=== PATIENT | female | born 1985 | race Hispanic/Latino ===

== ENCOUNTER 2017-11-12 09:54 | Emergency (ER) | payer SELFPAY ==
--- NOTE | 2017-11-12 12:07 | RAD REPORT ---
EXAM DESCRIPTION: RAD - Chest Pa And Lat (2 Views) - 11/12/2017 11:58 am CLINICAL HISTORY: Cough. COMPARISON: None. FINDINGS: The lungs are clear. The heart is upper limit of normal in size. No displaced fractures. IMPRESSION: No acute or concerning finding suspected.
--- NOTE | 2017-11-12 12:13 | ER ---
Nurse's Notes [facility] Name: Edgard Bearden Age: 32 yrs Sex: Female : 1985 Arrival Date: 11/12/2017 Time: 09:57 Bed 19 Private MD: Diagnosis: Acute bronchitis Presentation: 11/12 10:04 Presenting complaint: Patient states: "i have been coughing and i have a pain on my tw2 left upper abdomen, i feel like something was swollen", started swelling about midnight last night, been coughing since October 31 started with allergies, then chills, tried OTC meds. Transition of care: patient was not received from another setting of care. Onset of symptoms was November 12, 2017. Initial Sepsis Screen: Does the patient meet any 2 criteria? No. Patient's initial sepsis screen is negative. Does the patient have a suspected source of infection? No. Patient's initial sepsis screen is negative. Care prior to arrival: None. 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 - Social history:: Smoking status: Patient/guardian denies using tobacco. Screenin:23 Abuse screen: Denies threats or abuse. Denies injuries from another. Nutritional mg2 screening: No deficits noted. Tuberculosis screening: No symptoms or risk factors identified. Fall Risk None identified. Assessment: 10:23 General: Appears in no apparent distress. comfortable, obese, Behavior is calm, mg2 cooperative, appropriate for age. Pain:. Neuro: Level of Consciousness is awake, alert, obeys commands. Cardiovascular: Patient's skin is warm and dry. Respiratory: Breath sounds are clear. Derm: Skin is pink, warm \\T\\ dry. normal. Vital Signs: 10:05 BP 147 / 95; Pulse 79; Resp 18; Temp 97.4(TE); Pulse Ox 98% on R/A; Height 5 ft. 5 in. tw2 (165.10 cm) (R); Pain 7/10; 12:23 BP 142 / 89; Pulse 75; Resp 18; Pulse Ox 100% on R/A; mg2 ED Course: 09:57 Patient arrived in ED. rg4 10:05 Triage completed. tw2 10:06 Arm band placed on. tw2 10:07 Gamaliel Roberts MD is Attending Physician. 10:19 David Amaya, RN is Primary Nurse. hj 10:23 Patient has correct armband on for positive identification. Bed in low position. Call mg2 light in reach. Side rails up X 1. 10:23 No provider procedures requiring assistance completed. mg2 11:55 XRAY Chest Pa And Lat (2 Views) In Process Unspecified. EDMS 12:23 Patient did not have IV access during this emergency room visit. mg2 Administered Medications: No medications were administered Outcome: 12:12 Discharge ordered by . gs 12:22 Discharged to home ambulatory, with family. mg2 12:22 Condition: stable 12:22 Discharge instructions given to patient, family, Instructed on discharge instructions, follow up and referral plans. medication usage, Demonstrated understanding of instructions, follow-up care, Prescriptions given X 2. 12:35 Patient left the ED. Signatures: Dispatcher [employer] EDVA David Amaya, RN JORGE Anat Neri RN RN tw2 Viji Davis rg4 Gamaliel Roberts MD MD Amandeep Ramirez RN RN mg2
--- NOTE | 2017-11-12 12:13 | EDPHYS ---
Physician Documentation [facility] Name: Edgard Bearden Age: 32 yrs Sex: Female : 1985 Arrival Date: 11/12/2017 Time: 09:57 Bed 19 Private MD: ED Physician Gamaliel Roberts HPI: 11/12 11:45 This 32 yrs old Female presents to ER via Ambulatory with complaints of Cough. gs 11:47 The patient or guardian reports cough, that is intermittent, with productive sputum. gs Onset: The symptoms/episode began/occurred 5 day(s) ago. Severity of symptoms: At their worst the symptoms were moderate, in the emergency department the symptoms are unchanged. Modifying factors: the symptoms are aggravated by cold weather. Associated signs and symptoms: Pertinent positives: chest pain, with cough, Pertinent negatives: diarrhea, fever. The patient has experienced similar episodes in the past, a few times. 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 - Social history:: Smoking status: Patient/guardian denies using tobacco. ROS: 11:47 All other systems are negative. gs Exam: 11:47 Head/Face: Normocephalic, atraumatic. Eyes: Pupils equal round and reactive to light, gs extra-ocular motions intact. Lids and lashes normal. Conjunctiva and sclera are non-icteric and not injected. Cornea within normal limits. Periorbital areas with no swelling, redness, or edema. ENT: Nares patent. No nasal discharge, no septal abnormalities noted. Tympanic membranes are normal and external auditory canals are clear. Oropharynx with no redness, swelling, or masses, exudates, or evidence of obstruction, uvula midline. Mucous membranes moist. Neck: Trachea midline, no thyromegaly or masses palpated, and no cervical lymphadenopathy. Supple, full range of motion without nuchal rigidity, or vertebral point tenderness. No Meningismus. Chest/axilla: Normal chest wall appearance and motion. Nontender with no deformity. No lesions are appreciated. Cardiovascular: Regular rate and rhythm with a normal S1 and S2. No gallops, murmurs, or rubs. Normal PMI, no JVD. No pulse deficits. Respiratory: Lungs have equal breath sounds bilaterally, clear to auscultation and percussion. No rales, rhonchi or wheezes noted. No increased work of breathing, no retractions or nasal flaring. Abdomen/GI: Soft, non-tender, with normal bowel sounds. No distension or tympany. No guarding or rebound. No evidence of tenderness throughout. Back: No spinal tenderness. No costovertebral tenderness. Full range of motion. Skin: Warm, dry with normal turgor. Normal color with no rashes, no lesions, and no evidence of cellulitis. MS/ Extremity: Pulses equal, no cyanosis. Neurovascular intact. Full, normal range of motion. Neuro: Awake and alert, GCS 15, oriented to person, place, time, and situation. Cranial nerves II-XII grossly intact. Motor strength 5/5 in all extremities. Sensory grossly intact. Cerebellar exam normal. Normal gait. 11:47 Constitutional: The patient appears alert, awake. Vital Signs: 10:05 BP 147 / 95; Pulse 79; Resp 18; Temp 97.4(TE); Pulse Ox 98% on R/A; Height 5 ft. 5 in. tw2 (165.10 cm) (R); Pain 7/10; 12:23 BP 142 / 89; Pulse 75; Resp 18; Pulse Ox 100% on R/A; mg2 MDM: 10:24 Patient medically screened. 11:47 Differential Diagnosis: Bronchitis Viral Syndrome Pneumonia. Data reviewed: vital gs signs, nurses notes. Response to treatment: the patient's symptoms have mildly improved after treatment, and as a result, I will discharge patient. 11/12 10:24 Order name: XRAY Chest Pa And Lat (2 Views); Complete Time: 12:08 Administered Medications: No medications were administered Disposition: 11/12/17 12:12 Discharged to Home. Impression: Acute bronchitis. - Condition is Stable. - Discharge Instructions: Acute Bronchitis. - Prescriptions for Prednisone 20 mg Oral Tablet - take 1 tablet by ORAL route once daily for 5 days; 5 tablet. Albuterol Sulfate 90 mcg/actuation - inhale 1-2 puff by INHALATION route every 4-6 hours; 1 Inhaler. - Medication Reconciliation Form, Thank You Letter, Antibiotic Education, Prescription Opioid Use form. - Follow up: Private Physician; When: 2 - 3 days; Reason: Re-evaluation by your physician. Signatures: Dispatcher [employer] David Richards RN RN hj Anat Neri RN RN tw2 Gamaliel Roberts MD MD
== END 2017-11-12 12:35 | disposition home or self-care (01) ==
LOC: ER 09:54
DX: J20.9 Acute bronchitis, unspecified (principal); Z88.2 Allergy status to sulfonamides; Z88.8 Allergy status to other drugs, medicaments and biological substances
CPT/HCPCS: 71046; 99283

== ENCOUNTER 2018-04-04 15:45 | Emergency (ER) | payer SELFPAY ==
--- NOTE | 2018-04-04 16:34 | EDPHYS ---
Physician Documentation [facility] Name: Edgard Bearden Age: 32 yrs Sex: Female : 1985 Arrival Date: 04/04/2018 Time: 15:50 Bed 12 Private MD: LINDSAY Physician Bony Odonnell HPI: 04/04 16:24 This 32 yrs old Female presents to ER via Ambulatory with complaints of Jaw cp Pain, Ear Pain. 16:25 Onset: The symptoms/episode began/occurred yesterday. cp 16:29 The patient presents with left jaw pain. Duration: The symptoms are continuous. cp Associated signs and symptoms: Pertinent positives: pain, swelling, facial, Pertinent negatives: dysphagia, fever, sore throat, tooth pain. The patient has not experienced similar symptoms in the past. 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 - Social history:: Smoking status: Patient/guardian denies using tobacco. - Ebola Screening: : Patient negative for fever greater than or equal to 101.5 degrees Fahrenheit, and additional compatible Ebola Virus Disease symptoms Patient denies exposure to infectious person Patient denies travel to an Ebola-affected area in the 21 days before illness onset No symptoms or risks identified at this time. ROS: 16:31 Eyes: Negative for injury, pain, redness, and discharge. cp 16:31 Constitutional: Negative for body aches, chills, fever, poor PO intake. 16:31 ENT: Positive for ear pain, left jaw pain, Negative for drainage from ear(s), sore throat, difficulty swallowing, difficulty handling secretions. 16:31 Neck: Negative for pain with movement, pain at rest, stiffness, swollen nodes, bony tenderness. 16:31 Cardiovascular: Negative for chest pain. 16:31 Respiratory: Negative for cough, wheezing. 16:31 Abdomen/GI: Negative for abdominal pain, nausea, vomiting, and diarrhea. 16:31 Skin: Negative for cellulitis, rash. 16:31 Neuro: Positive for headache, of the left side head, Negative for altered mental status, dizziness, numbness, tingling. 16:31 All other systems are negative. Exam: 16:33 Constitutional: The patient appears in no acute distress, alert, awake, non-toxic, well cp developed, well nourished, obese. 16:33 Head/face: Noted is swelling, that is mild, of the left zygomatic area, tenderness, cp that is moderate, of the left TMJ, Sinus tenderness, is not appreciated. 16:33 Eyes: Periorbital structures: appear normal, Pupils: equal, round, and reactive to light and accomodation, Extraocular movements: intact throughout, Conjunctiva: normal, no exudate, no injection, Sclera: no appreciated abnormality, Lids and lashes: appear normal, bilaterally. 16:33 ENT: External ear(s): are unremarkable, Ear canal(s): are normal, clear, TM's: bulging, is not appreciated, bilaterally, dullness, bilaterally, Nose: is normal, Mouth: Lips: moist, Oral mucosa: pink and intact, moist, Posterior pharynx: Airway: no evidence of obstruction, patent, Tonsils: are normal in appearance, Uvula: midline, swelling, is not appreciated, erythema, is not appreciated, exudate, is not appreciated, Voice: is normal. 16:33 Neck: External neck: is normal, ROM/movement: is normal, is supple, without pain, no range of motions limitations, no nuchal rigidity. 16:33 Chest/axilla: Inspection: normal. 16:33 Cardiovascular: Rate: normal. 16:33 Respiratory: the patient does not display signs of respiratory distress, Respirations: normal, no use of accessory muscles, labored breathing, is not present. 16:33 Skin: cellulitis, is not appreciated, no rash present. 16:33 Neuro: Orientation: to person, place \T\ time. Mentation: lucid, able to follow commands, Cerebellar function: is grossly normal, Motor: moves all fours, strength is normal, Sensation: is normal, Gait: is steady. Vital Signs: 15:52 BP 139 / 70; Pulse 77; Resp 18; Temp 97.4; Pulse Ox 97% on R/A; Weight 205.02 kg; aj Height 5 ft. 5 in. (165.10 cm); 15:52 Body Mass Index 75.22 (205.02 kg, 165.10 cm) wing [facility]: 15:56 Patient medically screened. cp 16:30 Differential diagnosis: dental caries, dental abscess, TMJ pain, OM, acute sinusitis. cp 16:34 Data reviewed: vital signs, nurses notes, and as a result, I will discharge patient. cp 16:34 Counseling: I had a detailed discussion with the patient and/or guardian regarding: the cp historical points, exam findings, and any diagnostic results supporting the discharge/admit diagnosis, to return to the emergency department if symptoms worsen or persist or if there are any questions or concerns that arise at home. Administered Medications: 16:24 CANCELLED (Physician Discretion): TORadol 60 mg IM once cp Disposition: 17:00 Chart complete. cp Disposition: 04/04/18 16:34 Discharged to Home. Impression: Temporomandibular joint disorder, unspecified. - Condition is Stable. - Discharge Instructions: Temporomandibular Joint Syndrome. - Prescriptions for Naprosyn 500 mg Oral Tablet - take 1 tablet by ORAL route 2 times per day take with food; 20 tablet. Ultram 50 mg Oral Tablet - take 1 tablet by ORAL route every 6 hours As needed; 30 tablet. - Medication Reconciliation Form, Thank You Letter, Antibiotic Education, Prescription Opioid Use form. - Follow up: Ernestina Anglin MD; When: 2 - 3 days; Reason: Recheck today's complaints. - Problem is new. - Symptoms are unchanged. Addendum: 04/07/2018 07:29 Co-signature as Attending Physician, Bony Odonnell MD I agree with the assessment and c garcia plan of care. Signatures: Lisa Luna, RN Bony Ford MD MD cha Williams, Irene, RN RN iw Page, Corey, PA PA cp Corrections: (The following items were deleted from the chart) 04/04 16:24 16:24 TORadol 60 mg IM once ordered. cp 16:44 16:34 04/04/2018 16:34 Discharged to Home. Impression: Temporomandibular joint iw disorder, unspecified. Condition is Stable. Forms are Medication Reconciliation Form, Thank You Letter, Antibiotic Education, Prescription Opioid Use. Follow up: Ernestina Anglin; When: 2 - 3 days; Reason: Recheck today's complaints. Problem is new. Symptoms are unchanged. cp
--- NOTE | 2018-04-04 16:34 | ER ---
Nurse's Notes [facility] Name: Edgard Bearden Age: 32 yrs Sex: Female : 1985 Arrival Date: 04/04/2018 Time: 15:50 Bed 12 Private MD: Diagnosis: Temporomandibular joint disorder, unspecified Presentation: 04/04 15:50 Presenting complaint: Patient states: Patient reports left jaw pain and left ear aj irritation that started yesterday. Transition of care: patient was not received from another setting of care. Onset of symptoms was April 03, 2018. Risk Assessment: Do you want to hurt yourself or someone else? Patient reports no desire to harm self or others. Initial Sepsis Screen: Does the patient meet any 2 criteria? No. Patient's initial sepsis screen is negative. Does the patient have a suspected source of infection? No. Patient's initial sepsis screen is negative. Care prior to arrival: None. 15:50 Method Of Arrival: Ambulatory aj 15:50 Acuity: DALE 4 aj Triage Assessment: 15:52 General: Appears in no apparent distress. comfortable, obese, Behavior is calm, aj cooperative, appropriate for age. Pain: Complains of pain in left ear, left zygomatic area and left cheek. EENT: Reports pain in left ear, left zygomatic area and left cheek. Neuro: Level of Consciousness is awake, alert, obeys commands, Oriented to person, place, time, situation, Appropriate for age. Respiratory: Airway is patent Respiratory effort is even, unlabored, Respiratory pattern is regular, symmetrical. Derm: Skin is intact, is healthy with good turgor, Skin is pink, warm \T\ dry. normal. 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 - Social history:: Smoking status: Patient/guardian denies using tobacco. - Ebola Screening: : Patient negative for fever greater than or equal to 101.5 degrees Fahrenheit, and additional compatible Ebola Virus Disease symptoms Patient denies exposure to infectious person Patient denies travel to an Ebola-affected area in the 21 days before illness onset No symptoms or risks identified at this time. Screenin:43 Abuse screen: Denies threats or abuse. Denies injuries from another. Nutritional iw screening: No deficits noted. Tuberculosis screening: No symptoms or risk factors identified. Fall Risk None identified. Assessment: 16:15 General: Appears in no apparent distress. Behavior is calm, cooperative. Pain: iw Complains of pain in left cheek and left zygomatic area and left ear. Neuro: Level of Consciousness is awake, alert, obeys commands, Oriented to person, place, time, situation, Moves all extremities. Full function. Cardiovascular: Patient's skin is warm and dry. Respiratory: Respiratory effort is even, unlabored, Respiratory pattern is regular, symmetrical. EENT: Reports pain in left cheek and left jaw. Derm: Skin is intact, is healthy with good turgor. Musculoskeletal: Range of motion: intact in all extremities. Vital Signs: 15:52 BP 139 / 70; Pulse 77; Resp 18; Temp 97.4; Pulse Ox 97% on R/A; Weight 205.02 kg; aj Height 5 ft. 5 in. (165.10 cm); 15:52 Body Mass Index 75.22 (205.02 kg, 165.10 cm) aj ED Course: 15:50 Patient arrived in ED. aj 15:52 Triage completed. aj 15:52 Arm band placed on right wrist. Patient placed in an exam room. aj 15:55 Zoe Cheng, JORGE is Primary Nurse. iw 15:56 Bony Edmonds PA is PHCP. cp 15:56 Bony Odonnell MD is Attending Physician. cp 16:33 Ernestina Anglin MD is Referral Physician. cp 16:43 Patient has correct armband on for positive identification. iw 16:43 No provider procedures requiring assistance completed. Patient did not have IV access iw during this emergency room visit. Administered Medications: 16:24 CANCELLED (Physician Discretion): TORadol 60 mg IM once cp Outcome: 16:34 Discharge ordered by MD. cp 16:42 Discharged to home ambulatory. iw 16:42 Condition: good 16:42 Discharge instructions given to patient, family, Instructed on discharge instructions, follow up and referral plans. medication usage, Demonstrated understanding of instructions, follow-up care, medications, Prescriptions given X 2. 16:44 Patient left the ED. iw Signatures: Lisa Luna, RN RN Zoe Harris RN RN iw Bony Edmonds PA PA cp
== END 2018-04-04 16:44 | disposition home or self-care (01) ==
LOC: ER 15:45
DX: M26.609 Unspecified temporomandibular joint disorder, unspecified side (principal); Z88.2 Allergy status to sulfonamides; Z88.8 Allergy status to other drugs, medicaments and biological substances
CPT/HCPCS: 99282

== ENCOUNTER 2018-10-25 09:58 | Emergency (ER) | payer SELFPAY ==
--- OUTSIDE RECORDS SUMMARY | 2018-10-25 10:00 | XMS REPORT ---
:1985 [facility] Address [address] [place] [address] Care Team Providers Name Role Phone Unavailable Unavailable Unavailable Problems This patient has no known problems. Allergies, Adverse Reactions, Alerts This patient has no known allergies or adverse reactions. Medications This patient has no known medications.
--- NOTE | 2018-10-25 12:00 | RAD REPORT ---
EXAM DESCRIPTION: RAD - Chest Pa And Lat (2 Views) - 10/25/2018 11:44 am CLINICAL HISTORY: Fever, cough COMPARISON: October 2017 TECHNIQUE: PA and lateral views of the chest were obtained. FINDINGS: The lungs are clear. Heart size is normal and central vasculature is within normal limit s. No pleural effusion or pneumothorax seen. No acute bony finding noted. No aortic abnormality. IMPRESSION: No acute cardiopulmonary process. No significant interval change.
[2018-10-25] MEDS ORDERED: IPRATROPIUM BROM 0.5MG/2.5ML ONE (12:17)
[2018-10-25] MEDS ORDERED: ALBUTEROL 2.5 MG/3 ML NEB SOL ONE (12:17)
--- NOTE | 2018-10-25 12:37 | EDPHYS ---
Physician Documentation [facility] Name: Edgard Bearden Age: 33 yrs Sex: Female : 1985 Arrival Date: 10/25/2018 Time: 09:58 Bed 10 Private MD: ED Physician Bony Odonnell HPI: 10/25 12:34 This 33 yrs old Female presents to ER via Ambulatory with complaints of Cough. kb 12:35 The patient or guardian reports cough, that is intermittent, described as moderate, kb with no sputum. Onset: The symptoms/episode began/occurred 1 week(s) ago. Severity of symptoms: At their worst the symptoms were mild, moderate, in the emergency department the symptoms are unchanged. Modifying factors: The symptoms are alleviated by nothing, the symptoms are aggravated by nothing. Associated signs and symptoms: Pertinent positives: fever. The patient has not experienced similar symptoms in the past. The patient has not recently seen a physician. Historical: - Allergies: 10:19 Rifampin; la1 10:19 Sulfa (Sulfonamide Antibiotics); la1 - PMHx: 10:19 PCOS; la1 - Immunization history:: Adult Immunizations up to date. - Social history:: Smoking status: Patient/guardian denies using tobacco. - Ebola Screening: : No symptoms or risks identified at this time. ROS: 12:34 ENT: Negative for injury, pain, and discharge, Neck: Negative for injury, pain, and kb swelling, Cardiovascular: Negative for chest pain, palpitations, and edema, Abdomen/GI: Negative for abdominal pain, nausea, vomiting, diarrhea, and constipation, Back: Negative for injury and pain, MS/Extremity: Negative for injury and deformity, Skin: Negative for injury, rash, and discoloration, Neuro: Negative for headache, weakness, numbness, tingling, and seizure. 12:34 Constitutional: Positive for body aches, chills, fatigue, fever, malaise, Negative for poor PO intake, weight loss. 12:34 Respiratory: Positive for cough, Negative for dyspnea on exertion, hemoptysis, orthopnea, pleurisy, shortness of breath, sputum production, wheezing. Exam: 12:34 Constitutional: This is a well developed, well nourished patient who is awake, alert, kb and in no acute distress. Head/Face: Normocephalic, atraumatic. ENT: Nares patent. No nasal discharge, no septal abnormalities noted. Tympanic membranes are normal and external auditory canals are clear. Oropharynx with no redness, swelling, or masses, exudates, or evidence of obstruction, uvula midline. Mucous membranes moist. Neck: Trachea midline, no thyromegaly or masses palpated, and no cervical lymphadenopathy. Supple, full range of motion without nuchal rigidity, or vertebral point tenderness. No Meningismus. Chest/axilla: Normal chest wall appearance and motion. Nontender with no deformity. No lesions are appreciated. Cardiovascular: Regular rate and rhythm with a normal S1 and S2. No gallops, murmurs, or rubs. Normal PMI, no JVD. No pulse deficits. Abdomen/GI: Soft, non-tender, with normal bowel sounds. No distension or tympany. No guarding or rebound. No evidence of tenderness throughout. Skin: Warm, dry with normal turgor. Normal color with no rashes, no lesions, and no evidence of cellulitis. MS/ Extremity: Pulses equal, no cyanosis. Neurovascular intact. Full, normal range of motion. Neuro: Awake and alert, GCS 15, oriented to person, place, time, and situation. Cranial nerves II-XII grossly intact. Motor strength 5/5 in all extremities. Sensory grossly intact. Cerebellar exam normal. Normal gait. 12:35 Respiratory: the patient does not display signs of respiratory distress, Respirations: kb normal, Breath sounds: wheezing: expiratory that is mild, is heard in the right lower lobe and right posterior lower lobe. Vital Signs: 10:21 Pulse 80; Resp 22; Temp 98.7; Pulse Ox 98% on R/A; Weight 208.65 kg; Height 5 ft. 5 in. la1 (165.10 cm); 10:22 BP 153 / 105; la1 12:30 Pulse 88; Resp 18; Pulse Ox 98% on R/A; hb 10:21 Body Mass Index 76.55 (208.65 kg, 165.10 cm) la1 MDM: 11:25 Patient medically screened. kb 12:33 Data reviewed: vital signs, nurses notes. Data interpreted: Pulse oximetry: on room air kb is 98 %. Interpretation: normal. Counseling: I had a detailed discussion with the patient and/or guardian regarding: the historical points, exam findings, and any diagnostic results supporting the discharge/admit diagnosis, lab results, radiology results, the need for outpatient follow up, a family practitioner, to return to the emergency department if symptoms worsen or persist or if there are any questions or concerns that arise at home. 10/25 10:21 Order name: Flu; Complete Time: 11:16 la1 10/25 10:23 Order name: Chest Pa And Lat (2 Views) XRAY; Complete Time: 12:03 kb Administered Medications: 12:10 Drug: DuoNeb (3:1) (2.5 mg - 0.5 mg) 3 ml Route: Nebulizer; hb 13:00 Follow up: Response: No adverse reaction hb Disposition: 10/25/18 12:36 Discharged to Home. Impression: Bronchitis, not specified as acute or chronic. - Condition is Stable. - Discharge Instructions: Acute Bronchitis, [id number], Viral Respiratory Infection, [id number]. - Medication Reconciliation Form, Thank You Letter, Antibiotic Education, Prescription Opioid Use form. - Follow up: Emergency Department; When: As needed; Reason: Worsening of condition. Follow up: Private Physician; When: 2 - 3 days; Reason: Recheck today's complaints, Continuance of care, Re-evaluation by your physician. Addendum: 10/27/2018 07:41 Co-signature as Attending Physician, Bony Odonnell MD I agree with the assessment and c garcia plan of care. Signatures: Dispatcher [employer] EDMS Sade Faulkner, SALES TECHNICIAN HOME THEATER-C SALES TECHNICIAN HOME THEATER-Ckb Bony Odonnell MD MD cha Attema, Lee RN RN [facility] Angélica Casas RN RN Corrections: (The following items were deleted from the chart) 10/25 12:35 12:34 Constitutional: This is a well developed, well nourished patient who is awake, kb alert, and in no acute distress. Head/Face: Normocephalic, atraumatic. ENT: Nares patent. No nasal discharge, no septal abnormalities noted. Tympanic membranes are normal and external auditory canals are clear. Oropharynx with no redness, swelling, or masses, exudates, or evidence of obstruction, uvula midline. Mucous membranes moist. Neck: Trachea midline, no thyromegaly or masses palpated, and no cervical lymphadenopathy. Supple, full range of motion without nuchal rigidity, or vertebral point tenderness. No Meningismus. Chest/axilla: Normal chest wall appearance and motion. Nontender with no deformity. No lesions are appreciated. Cardiovascular: Regular rate and rhythm with a normal S1 and S2. No gallops, murmurs, or rubs. Normal PMI, no JVD. No pulse deficits. Respiratory: Lungs have equal breath sounds bilaterally, clear to auscultation and percussion. No rales, rhonchi or wheezes noted. No increased work of breathing, no retractions or nasal flaring. Abdomen/GI: Soft, non-tender, with normal bowel sounds. No distension or tympany. No guarding or rebound. No evidence of tenderness throughout. Skin: Warm, dry with normal turgor. Normal color with no rashes, no lesions, and no evidence of cellulitis. MS/ Extremity: Pulses equal, no cyanosis. Neurovascular intact. Full, normal range of motion. Neuro: Awake and alert, GCS 15, oriented to person, place, time, and situation. Cranial nerves II-XII grossly intact. Motor strength 5/5 in all extremities. Sensory grossly intact. Cerebellar exam normal. Normal gait. kb 13:05 12:36 10/25/2018 12:36 Discharged to Home. Impression: Bronchitis, not specified as hb acute or chronic. Condition is Stable. Forms are Medication Reconciliation Form, Thank You Letter, Antibiotic Education, Prescription Opioid Use. Follow up: Emergency Department; When: As needed; Reason: Worsening of condition. Follow up: Private Physician; When: 2 - 3 days; Reason: Recheck today's complaints, Continuance of care, Re-evaluation by your physician. kb
--- NOTE | 2018-10-25 12:37 | ER ---
Nurse's Notes [facility] Name: Edgard Bearden Age: 33 yrs Sex: Female : 1985 Arrival Date: 10/25/2018 Time: 09:58 Bed 10 Private MD: Diagnosis: Bronchitis, not specified as acute or chronic Presentation: 10/25 10:19 Presenting complaint: Patient states: Cough for one week, pt reports chills. Concerned la1 for hx of pne. Transition of care: patient was not received from another setting of care. Onset of symptoms was October 25, 2018. Risk Assessment: Do you want to hurt yourself or someone else? Patient reports no desire to harm self or others. Initial Sepsis Screen: Does the patient meet any 2 criteria? No. Patient's initial sepsis screen is negative. Does the patient have a suspected source of infection? No. Patient's initial sepsis screen is negative. Care prior to arrival: None. 10:19 Method Of Arrival: Ambulatory la1 10:19 Acuity: DALE 3 la1 Historical: - Allergies: 10:19 Rifampin; la1 10:19 Sulfa (Sulfonamide Antibiotics); la1 - PMHx: 10:19 PCOS; la1 - Immunization history:: Adult Immunizations up to date. - Social history:: Smoking status: Patient/guardian denies using tobacco. - Ebola Screening: : No symptoms or risks identified at this time. Screenin:30 Abuse screen: Denies threats or abuse. Denies injuries from another. Nutritional hb screening: No deficits noted. Tuberculosis screening: No symptoms or risk factors identified. Fall Risk None identified. Assessment: 12:05 General: Appears in no apparent distress. Behavior is calm, cooperative. Pain: Denies hb pain. Neuro: Level of Consciousness is awake, alert, obeys commands, Oriented to person, place, time, situation. Cardiovascular: Capillary refill < 3 seconds Patient's skin is warm and dry. Respiratory: Airway is patent Respiratory effort is even, unlabored, Respiratory pattern is regular, symmetrical, Breath sounds with wheezes. GI: No signs and/or symptoms were reported involving the gastrointestinal system. : No signs and/or symptoms were reported regarding the genitourinary system. EENT: No signs and/or symptoms were reported regarding the EENT system. Derm: Skin is intact, is healthy with good turgor. Musculoskeletal: No signs and/or symptoms reported regarding the musculoskeletal system. 13:04 Reassessment: Patient appears in no apparent distress at this time. Patient and/or hb family updated on plan of care and expected duration. Pain level reassessed. Patient is alert, oriented x 3, equal unlabored respirations, skin warm/dry/pink. Patient states symptoms have improved. Vital Signs: 10:21 Pulse 80; Resp 22; Temp 98.7; Pulse Ox 98% on R/A; Weight 208.65 kg; Height 5 ft. 5 in. la1 (165.10 cm); 10:22 BP 153 / 105; la1 12:30 Pulse 88; Resp 18; Pulse Ox 98% on R/A; hb 10:21 Body Mass Index 76.55 (208.65 kg, 165.10 cm) la1 ED Course: 09:58 Patient arrived in ED. as 10:20 Triage completed. la1 10:20 Arm band placed on left wrist. la1 11:07 Sade Faulkner FNP-C [facility]. kb 11:07 Bony Odonnell MD is Attending Physician. kb 11:42 Chest Pa And Lat (2 Views) XRAY In Process Unspecified. EDMS 12:05 Patient has correct armband on for positive identification. Bed in low position. Call hb light in reach. Side rails up X 1. 13:05 No provider procedures requiring assistance completed. Patient did not have IV access hb during this emergency room visit. Administered Medications: 12:10 Drug: DuoNeb (3:1) (2.5 mg - 0.5 mg) 3 ml Route: Nebulizer; hb 13:00 Follow up: Response: No adverse reaction hb Outcome: 12:36 Discharge ordered by . kb 13:05 Discharged to home ambulatory, with family. hb 13:05 Condition: stable 13:05 Discharge instructions given to patient, Instructed on discharge instructions, follow up and referral plans. medication usage, Demonstrated understanding of instructions, follow-up care, medications. 13:05 Patient left the ED. hb Signatures: Dispatcher [employer] EDMS Sade Faulkner FNP-C FNP-Ckb Martinez, Amelia as Attema, Lee, RN RN la1 Angélica Casas RN RN hb
== END 2018-10-25 13:05 | disposition home or self-care (01) ==
LOC: ER 09:58
DX: J40 Bronchitis, not specified as acute or chronic (principal); Z88.1 Allergy status to other antibiotic agents; Z88.2 Allergy status to sulfonamides
CPT/HCPCS: 71046; 87804; 94640; 99284

== ENCOUNTER 2022-07-24 13:49 | Emergency (ER) | payer SELFPAY ==
--- OUTSIDE RECORDS SUMMARY | 2022-07-24 13:54 | XMS REPORT | Continuity of Care Document ---
:1985 Author Organization [facility] t Address [address] [place] [address] Care Team Providers Name Role Phone Pcp, Patient Does Not Have A Primary Care Physician [id number] LAKSHMI VICENTE Attending Clinician Unavailable Lakshmi Newman Attending Clinician Doctor Unassigned, Alafaya Attending Clinician Unavailable Coleen Henry Attending Clinician Sulaiman PATEL Rosa Attending Clinician Annia Webster Attending Clinician Juan Mccarthy MD Attending Clinician Jadon Ascencio MD Attending Clinician JUAN MCCARTHY Attending Clinician Unavailable Jadon Ascencio MD Admitting Clinician Payers Payer Name Policy Type Policy Number Effective Date Expiration Date S ource Problems Condition Condition Condition Status Onset Resolution Last Treating Co mments Source Name Details Category Date Date Treatment Clinician Date Hypoxia Hypoxia Disease Active Univers 7-30 ity of 00:00: [address] COVID-19 COVID-19 Disease Active Unive rs virus virus 7-30 [place] [address] [place] [address] Skin Skin Disease Active Univers lesion of lesion of 9-05 ity of breast breast 00:00: [place] 00 Medical Branch Cellulitis Cellulitis Disease Active U nivers of breast of breast 03-26 ity of 00:00: [place] 00 Medical Branch Diabetes Diabetes Disease Active Overview: Un miquel mellitus mellitus 11-24 Formattin ity of type 2, type 2, 00:00: g of this [place] uncontroll uncontroll 00 note Me dical ed, ed, might be Branch without without different complicati complicati from the ons ons original. 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 Elevated Elevated Disease Active Unive rs blood blood 11-14 ity of pressure pressure 00:00: [place] reading reading 00 Medical without without Branch diagnosis diagnosis of of hypertensi hypertensi on on Allergies, Adverse Reactions, Alerts Allergy Allergy Status Severity Reaction(s) Onset Inactive Treating Comm ents Source Name Type Date Date Clinician Lactose Propensi Active Diarrhea Unive rs ty to 7-31 ity of adverse 00:00: [place] reaction 00 Medical s Branch LACTOSE DRUG Active Diarrhea Univers INGREDI 7-31 ity of 00:00: [place] 00 Medical Branch RIFAMPIN DRUG Active Hives 2012-07 Univers INGREDI 0-25 ity of 00:00: [place] 00 Medical Branch SULFA Drug Active Hives 2012-07 Univers (SULFONA Class 0-25 ity of MIDE 00:00: [place] ANTIBIOT 00 Medical ICS) Branch Sulfa Propensi Active Hives 2012-07 Univers (Sulfona ty to 0-25 ity of mide adverse 00:00: [place] Antibiot reaction 00 Medica l ics) s to Branch drug Rifampin Propensi Active Hives 2012-07 Univer s ty to 0-25 ity of adverse 00:00: [place] reaction 00 Medical s to Branch drug Sulfa Propensi Active Hives 2012-07 Univers (Sulfona ty to 0-25 ity of mide adverse 00:00: [place] Antibiot reaction 00 Medica l ics) s to Branch drug Social History Social Habit Start Date Stop Date Quantity Comments Source Exposure to 2022-07-14 2022-07-24 Not sure [facility] SARS-CoV-2 00:00:00 09:47:00 [facility] (event) Branch Alcohol intake 2022-07-24 2022-07-24 Current [facility] 00:00:00 00:00:00 non-drinker of [facility] alcohol (finding) Branch History [facility] Food 2020-02-18 2020-02-18 1 Univers ity of Scarcity 00:00:00 00:00:00 [place] [facility] History [facility] 2020-02-18 2020-02-18 2 University o f Transport Med 00:00:00 00:00:00 [place] Medic al Branch History [facility] 2020-02-18 2020-02-18 2 University o f Transport Non-Med 00:00:00 00:00:00 [place] M edical Branch Education 2020-02-18 2020-02-18 14 University of 00:00:00 00:00:00 [place] [facility] History [facility] 2020-02-18 2020-02-18 3 University o f Financial 00:00:00 00:00:00 [place] [facility] History [facility] Food 2020-02-18 2020-02-18 1 Univers ity of Worry 00:00:00 00:00:00 [facility] [place] [facility] Tobacco use and 2014-11-11 2014-11-11 Smokeless tobacco Un iversity of exposure 00:00:00 00:00:00 non-user [facility] [place] [facility] Sex Ass[birth year] At [birth year] Universit y of 00:00:00 00:00:00 [facility] [place] [facility] Smoking Status Start Date Stop Date Source Never smoked tobacco [facility] Medications Ordered Filled Start Stop Current Ordering Indication Dosage Frequency Signature Comments Components Source Medication Medication Date Date Medication? Clinician (SIG) Name Name lidocaine Yes [id number] Swish, U nivers 2% viscous 1-03 gargle and ity of (LIDOCAINE 00:00: spit or [place] VISCOUS) 2 00 swallow Medica l % solution 15mL q4h Branc h prn throat pain tobramycin 2022- Yes [id number] 2[drp] Place 2 Univers 0.3 % 07-24 Drops in ity of ophthalmic 00:00: 05:59 right eye [place] drops 00 :00 every 4 Medical (four) Branch hours for 7 days. Continue until you follow up with eye doctor. ergocalcife 2020-0 2020- No [id number] Take Univers rol, 02-24 50,000 ity of vitamin d2, 00:00: 04:59 Units by [place] 2,500 unit 00 :00 mouth Medical Cap weekly for Branch 4 doses. ergocalcife 2020-0 2020- No [id number] Take Univers rol, 02-24 50,000 ity of vitamin d2, 00:00: 04:59 Units by [place] 2,500 unit 00 :00 mouth Medical Cap weekly for Branch 4 doses. ergocalcife 2020-0 2020- No [id number] Take Univers rol, 02-24 50,000 ity of vitamin d2, 00:00: 04:59 Units by [place] 2,500 unit 00 :00 mouth Medical Cap weekly for Branch 4 doses. ergocalcife 2020-0 2020- No [id number] Take Univers rol, 02-24 50,000 ity of vitamin d2, 00:00: 04:59 Units by [place] 2,500 unit 00 :00 mouth Medical Cap weekly for Branch 4 doses. ergocalcife 2020-0 2020- No [id number] Take Univers rol, 02-24 50,000 ity of vitamin d2, 00:00: 04:59 Units by [place] 2,500 unit 00 :00 mouth Medical Cap weekly for Branch 4 doses. MULTIVITAMI 2020-0 Yes Take by Uni vers N ORAL 7-31 mouth. ity of 22:31: [address] Branch MULTIVITAMI 2020-0 Yes Take by Uni vers N ORAL 7-31 mouth. ity of 22:31: [address] Branch MULTIVITAMI 2020-0 Yes Take by Uni vers N ORAL 7-31 mouth. ity of 22:31: [address] Branch MULTIVITAMI 2020-0 Yes Take by Uni vers N ORAL 7-31 mouth. ity of 22:31: [address] MULTIVITAMI 2020-0 Yes Take by Uni vers N ORAL 7-31 mouth. ity of 22:31: [address] MULTIVITAMI 2020-0 Yes Take by Uni vers N ORAL 7-31 mouth. ity of 22:31: [address] MULTIVITAMI 2020-0 Yes Take by Uni vers N ORAL 7-31 mouth. ity of 17:31: [address] MULTIVITAMI 2020-0 Yes Take by Uni vers N ORAL 7-31 mouth. ity of 17:31: [address] docusate 2020-0 Yes 100mg 100 mg, Unive rs (COLACE) 7-31 Oral, BID, ity o f capsule 100 01:00: First dose [place] mg 00 on [facility] 02/18/20 at [place] [facility], [facility] 2020-0 Yes [id number] 2.5mg Inhale 3 Univers 2.5 mg /3 7-31 mL every 4 ity of mL (0.083 00:00: (four) [place] %) 00 hours as Medical nebulizer needed for Bran ch solution Wheezing or Shortness of Breath. May also nebulize one extra every 6 hours. albuterol 2020-0 Yes [id number] 2.5mg Inhale 3 Univers 2.5 mg /3 7-31 mL every 4 ity of mL (0.083 00:00: (four) [place] %) 00 hours as Medical nebulizer needed for Bran ch solution Wheezing or Shortness of Breath. May also nebulize one extra every 6 hours. albuterol 2020-0 Yes [id number] 2.5mg Inhale 3 Univers 2.5 mg /3 7-31 mL every 4 ity of mL (0.083 00:00: (four) [place] %) 00 hours as Medical nebulizer needed for Bran ch solution Wheezing or Shortness of Breath. May also nebulize one extra every 6 hours. albuterol 2020-0 Yes [id number] 2.5mg Inhale 3 Univers 2.5 mg /3 7-31 mL every 4 ity of mL (0.083 00:00: (four) [place] %) 00 hours as Medical nebulizer needed for Bran ch solution Wheezing or Shortness of Breath. May also nebulize one extra every 6 hours. albuterol 2020-0 Yes [id number] 2.5mg Inhale 3 Univers 2.5 mg /3 -31 mL every 4 ity of mL (0.083 00:00: (four) [place] %) 00 hours as Medical nebulizer needed for Bran ch solution Wheezing or Shortness of Breath. May also nebulize one extra every 6 hours. albuterol 2020-0 Yes [id number] 2.5mg Inhale 3 Univers 2.5 mg /3 - [id number] mL every 4 i ty of mL (0.083 00:00: (four) [place] %) 00 hours as Medical nebulizer needed for Bran ch solution Wheezing or Shortness of Breath. May also nebulize one extra every 6 hours. albuterol 2020-0 Yes [id number] 2.5mg Inhale 3 Univers 2.5 mg /3 - [id number] mL every 4 i ty of mL (0.083 00:00: (four) [place] %) 00 hours as Medical nebulizer needed for Bran ch solution Wheezing or Shortness of Breath. May also nebulize one extra every 6 hours. albuterol 2020-0 Yes [id number] 2.5mg Inhale 3 Univers 2.5 mg /3 - mL every 4 ity of mL (0.083 00:00: (four) [place] %) 00 hours as Medical nebulizer needed for Bran ch solution Wheezing or Shortness of Breath. May also nebulize one extra every 6 hours. ascorbic 0 2019- No [id number] 500mg Take 1 Univers acid, 02-18 tablet by ity of vitamin C, 00:00: 04:59 mouth 3 [place] 500 mg 00 :00 (three) Medical tablet times Branch daily for 30 days. ferrous 2019-0 2019- No [id number] 325mg Take 1 U nivers sulfate 325 02-18 tablet by it y of mg (65 mg 00:00: 04:59 mouth 3 [place] iron) 00 :00 (three) Medical tablet times Branch daily with meals for 30 days. zinc 2019-2019- No [id number] 220mg Take 1 Univ ers sulfate 220 02-18 capsule by i ty of (50) mg 00:00: 04:59 mouth 2 [place] capsule 00 :00 (two) Medical times Branch daily for 30 days. metFORMIN 2019-2019- No [id number] 500mg Take 1 Univers 500 mg 02-18 tablet by ity of tablet 00:00: 04:59 mouth 2 [place] 00 :00 (two) Medical times Branch daily with meals for 30 days. ascorbic 2019-0 2019- No [id number] 500mg Take 1 Univers acid, 02-18 tablet by ity of vitamin C, 00:00: 04:59 mouth 3 [place] 500 mg 00 :00 (three) Medical tablet times Branch daily for 30 days. ferrous 2019-2019- No [id number] 325mg Take 1 U nivers sulfate 325 02-18 tablet by it y of mg (65 mg 00:00: 04:59 mouth 3 [place] iron) 00 :00 (three) Medical tablet times Branch daily with meals for 30 days. zinc 2019-2019- No [id number] 220mg Take 1 Univ ers sulfate 220 02-18 capsule by i ty of (50) mg 00:00: 04:59 mouth 2 [place] capsule 00 :00 (two) Medical times Branch daily for 30 days. metFORMIN 2019-2019- No [id number] 500mg Take 1 Univers 500 mg 02-18 tablet by ity of tablet 00:00: 04:59 mouth 2 [place] 00 :00 (two) Medical times Branch daily with meals for 30 days. ascorbic 2019-2019- No [id number] 500mg Take 1 Univers acid, 02-18 tablet by ity of vitamin C, 00:00: 04:59 mouth 3 [place] 500 mg 00 :00 (three) Medical tablet times Branch daily for 30 days. ferrous 2019-2019- No [id number] 325mg Take 1 U nivers sulfate 325 02-18 tablet by it y of mg (65 mg 00:00: 04:59 mouth 3 [place] iron) 00 :00 (three) Medical tablet times Branch daily with meals for 30 days. zinc 2019-2019- No [id number] 220mg Take 1 Univ ers sulfate 220 02-18- capsule by i ty of (50) mg 00:00: 04:59 mouth 2 [place] capsule 00 :00 (two) Medical times Branch daily for 30 days. metFORMIN 2019-2019- No [id number] 500mg Take 1 Univers 500 mg -21 03-31 tablet by ity of tablet 00:00: 04:59 mouth 2 [place] 00 :00 (two) Medical times Branch daily with meals for 30 days. ascorbic 2020-2019- No [id number] 500mg Take 1 Univers acid, -21 03-31 tablet by ity of vitamin C, 00:00: 04:59 mouth 3 [place] 500 mg 00 :00 (three) Medical tablet times Branch daily for 30 days. ferrous 2019-2019- No [id number] 325mg Take 1 U nivers sulfate 325 -21 03- tablet by it y of mg (65 mg 00:00: 04:59 mouth 3 [place] iron) 00 :00 (three) Medical tablet times Branch daily with meals for 30 days. zinc 2019-2019- No [id number] 220mg Take 1 Univ ers sulfate 220 02-18- capsule by i ty of (50) mg 00:00: 04:59 mouth 2 [place] capsule 00 :00 (two) Medical times Branch daily for 30 days. metFORMIN 2019- No [id number] 500mg Take 1 Univers 500 mg 02-18 tablet by ity of tablet 00:00: 04:59 mouth 2 [place] 00 :00 (two) Medical times Branch daily with meals for 30 days. ascorbic 2019-2019- No [id number] 500mg Take 1 Univers acid, 02-18- tablet by ity of vitamin C, 00:00: 04:59 mouth 3 [place] 500 mg 00 :00 (three) Medical tablet times Branch daily for 30 days. ferrous 2019-2019- No [id number] 325mg Take 1 U nivers sulfate 325 02-18 tablet by it y of mg (65 mg 00:00: 04:59 mouth 3 [place] iron) 00 :00 (three) Medical tablet times Branch daily with meals for 30 days. zinc 2019-2019- No [id number] 220mg Take 1 Univ ers sulfate 220 - 08-31 capsule by i ty of (50) mg 00:00: 04:59 mouth 2 [place] capsule 00 :00 (two) Medical times Branch daily for 30 days. metFORMIN 2019-2019- No [id number] 500mg Take 1 Univers 500 mg -21 03-31 tablet by ity of tablet 00:00: 04:59 mouth 2 [place] 00 :00 (two) Medical times Branch daily with meals for 30 days. budesonide 2020-0 2020- No [id number] .5mg Inhale 2 Univers 0.5 mg/2 mL 02-18 08-08 mL daily ity of nebulizer 00:00: 04:59 for 7 [place] solution 00 :00 days. Medical Branch budesonide 2019-0 2020- No [id number] .5mg Inhale 2 Univers 0.5 mg/2 mL 02-18 08-08 mL daily ity of nebulizer 00:: 04:59 for 7 [place] solution 00 :00 days. Medical Branch budesonide 2020-0 2020- No [id number] .5mg Inhale 2 Univers 0.5 mg/2 mL 02-18 08-08 mL daily ity of nebulizer 00:00: 04:59 for 7 [place] solution 00 :00 days. Medical Branch budesonide 2019-0 2020- No [id number] .5mg Inhale 2 Univers 0.5 mg/2 mL 02-18 08-08 mL daily ity of nebulizer 00:: 04:59 for 7 [place] solution 00 :00 days. Medical Branch dexAMETHaso 2019- 2020- No [id number] 4mg Take 1 Univers ne 4 mg 02-18 tablet by ity of tablet 00:00: 00:00 mouth [place] 00 :00 daily for Medical 5 days. Branch iohexol 2020- No 140mL 140 mL, Unive rs (OMNIPAQUE 02-17- Intravenou it y of 350 22:30: 22:00 s, ONCE, 1 [place] BULK-150 00 :00 dose, [place] Medica l mL) 02/18/20 at Branch injection 1730, 140 mL Routine ferrous 2019-0 Yes 325mg 325 mg, Univer s sulfate 7-30 Oral, TID ity of tablet 325 22:00: MEALS, [place] mg 00 First dose Medical on [facility] 02/18/20 at 1700, Until Discontinu ed, Routine NaCl 0.9% Yes 10mL 10 mL, Univer s (NS) 7-30 Slow IV ity of injection 17:15: Push, PRN, [place] 10 mL 27 Starting Medical [facility] 02/18/20 at 1215, Until Discontinu ed, Routine, line maintenanc e lidocaine 2019-0 Yes 5mL 5 mL, Univers 1% (PF) 02-17 Subcutaneo ity of (XYLOCAINE) 17:15: us, PRN, [place] injection 5 27 Starting Medi suly mL [place] Branch 02/18/20 at 1215, Until Discontinu ed, Routine, Local anesthesia Sliding 2019-0 Yes Subcutaneo Univ ers Scale 02-17 us, TID ity of Insulin - 17:00: MEALS+HS, [place] as Aspart 00 First dose Medical (NOVOLOG) + on [place] Branch Fsbg 02/18/20 at Testing 1200, Until Discontinu ed, Routine azithromyci 2020- No 500mg 500 mg, IV Univers n 02-17 Piggyback, ity of (ZITHROMAX) 14:30: 12:34 Q24H ABX, [place] 500 mg in 00 :50 6 doses, Medica l NaCl 0.9% First dose Bran ch (NS) 250 mL on [place] VIAL-MATE 02/18/20 at IV 0930, Last piggyback dose on 02/23/20 at 0930, 250 mL
Reas on for Anti-Infec tive: Empiric Therapy for Suspected Infection< br>Empiric Therapy Site: Respirator y
Durat ion of therapy: 7 days cefTRIAXone 2020- No 1000mg 1,000 mg, Univers (ROCEPHIN) 02-17 IV ity of 1,000 mg in 14:30: 12:34 Piggyback, [place] NaCl 0.9% 00 :50 Q12H ABX, Medic al (NS) 50 mL First dose Bra nch MINI-BAG on [place] 02/18/20 at 0930, Until Discontinu ed, 50 mL
R иван for Anti-Infec tive: Empiric Therapy for Suspected Infection< br>Empiric Therapy Site: Respirator y
Durat ion of therapy: 7 days dexamethaso 2019-0 Yes 6mg 6 mg, Slow Univers ne 02-17 IV Push, ity of (DECADRON 14:00: DAILY, [place] PHOSPHATE) 00 First dose Med ical injection 6 on [place] Branch mg 02/18/20 at 0900, Until Discontinu ed, Routine ergocalcife 2020-0 Yes [id number] 50,000 Un miquel rol 7-30 Units, ity of (vitamin 14:00: Oral, [place] d2) 00 QWEEKLY, Medical (CALCIFEROL First dose Br anch ) capsule on [place] 50,000 02/18/20 at Units 0900, Until Discontinu ed, Routine lactobacill 2020-0 Yes 1{tbl} 1 tablet, Univers us 7-30 Oral, BID, ity of acidophilus 13:30: First dose [place] (ACIDOPHILL 00 on [place] Medica l US) 25 02/18/20 at Branch million 0830, cell -100 Until mg captab 1 Discontinu tablet ed, Routine ascorbic 2020-0 Yes 500mg 500 mg, Unive rs acid 7-30 Oral, TID, ity of (vitamin C) 13:30: First dose [place] (VITAMIN C) 00 on [facility] Medica l tablet 500 02/18/20 at [facility] mg 0830, Until Discontinu ed, Routine zinc 2020-0 Yes 220mg 220 mg, Univers sulfate 7-30 Oral, BID, ity of (ORAZINC) 13:30: First dose [place] capsule 220 00 on [facility] Medica l mg 02/18/20 at Branch 0830, Until Discontinu ed, Routine enoxaparin 2020-0 Yes 40mg 40 mg, Unive rs (LOVENOX) 730 Subcutaneo ity of injection 13:30: us, Q12H, [place] 40 mg 00 First dose Medical on [facility] Branch 02/18/20 at 0830, Until Discontinu ed, Routine ondansetron 2020-0 Yes 4mg 4 mg, Slow Univers (ZOFRAN 730 IV Push, ity of (PF)) 13:14: Q6HPRN, [place] injection 4 14 Starting Medi suly mg [facility] 02/18/20 at 0814, Until Discontinu ed, Routine, Nausea and Vomiting (N/V) glucagon 2020-0 Yes 1mg 1 mg, Univers (GLUCAGEN 730 Intramuscu ity of DIAGNOSTIC 13:13: lar, PRN, [place] KIT) 13 Starting Medical injection 1 [place] Branch mg 02/18/20 at 0813, Until Discontinu ed, TOM, Blood Glucose < or = 70 mg/dL and patient is unable to swallow or has mental changes. dextrose 50 2019-0 Yes 25mL 25 mL, Univ ers % in water 7-30 Slow IV ity of (D50W) 13:13: Push, PRN, [place] injection 13 Starting Medica l 25 mL [place] Branch 02/18/20 at 0813, Until Discontinu ed, TOM, Blood Glucose < or = 70 mg/dL and patient is unable to swallow or has mental status changes. butalbital Yes [id number] 1{tbl} Take 1 Univers acetaminoph 5-24 tablet by ity of en-caff 00:00: mouth [place] 50-325-40 00 every 4 Medical mg tablet (four) Branch hours as needed for Headache. butalbital Yes [id number] 1{tbl} Take 1 Univers acetaminoph 5-24 tablet by ity of en-caff 00:00: mouth [place] 50-325-40 00 every 4 Medical mg tablet (four) Branch hours as needed for Headache. butalbital Yes [id number] 1{tbl} Take 1 Univers acetaminoph 5-24 tablet by ity of en-caff 00:00: mouth [place] 50-325-40 00 every 4 Medical mg tablet (four) Branch hours as needed for Headache. butalbital Yes [id number] 1{tbl} Take 1 Univers acetaminoph 5-24 tablet by ity of en-caff 00:00: mouth [place] 50-325-40 00 every 4 Medical mg tablet (four) Branch hours as needed for Headache. butalbital Yes [id number] 1{tbl} Take 1 Univers acetaminoph 5-24 tablet by ity of en-caff 00:00: mouth [place] 50-325-40 00 every 4 Medical mg tablet (four) Branch hours as needed for Headache. butalbital Yes [id number] 1{tbl} Take 1 Univers acetaminoph 5-24 tablet by ity of en-caff 00:00: mouth [place] 50-325-40 00 every 4 Medical mg tablet (four) Branch hours as needed for Headache. butalbital Yes [id number] 1{tbl} Take 1 Univers acetaminoph 5-24 tablet by ity of en-caff 00:00: mouth [place] 50-325-40 00 every 4 Medical mg tablet (four) Branch hours as needed for Headache. butalbital- 2019-0 Yes [id number] 1{tbl} Take 1 Univers acetaminoph 5-24 tablet by ity of en-caff 00:00: mouth [place] 50-325-40 00 every 4 Medical mg tablet (four) Branch hours as needed for Headache. ondansetron 2019-0 Yes [id number] 4mg Take 1 Univers (ZOFRAN 3-04 tablet by ity of ODT) 4 mg 00:00: mouth [place] disintegrat 00 every 8 Medic al ing tablet (eight) Branch hours as needed for Nausea and Vomiting (N/V). ondansetron 2019-0 Yes [id number] 4mg Take 1 Univers (ZOFRAN 3-04 tablet by ity of ODT) 4 mg 00:00: mouth [place] disintegrat 00 every 8 Medic al ing tablet (eight) Branch hours as needed for Nausea and Vomiting (N/V). ondansetron 2018-0 Yes [id number] 4mg Take 1 Univers (ZOFRAN 3-04 tablet by ity of ODT) 4 mg 00:00: mouth [place] disintegrat 00 every 8 Medic al ing tablet (eight) Branch hours as needed for Nausea and Vomiting (N/V). ondansetron 2019-0 Yes [id number] 4mg Take 1 Univers (ZOFRAN 3-04 tablet by ity of ODT) 4 mg 00:00: mouth [place] disintegrat 00 every 8 Medic al ing tablet (eight) Branch hours as needed for Nausea and Vomiting (N/V). ondansetron 2019-0 Yes [id number] 4mg Take 1 Univers (ZOFRAN 3-04 tablet by ity of ODT) 4 mg 00:00: mouth [place] disintegrat 00 every 8 Medic al ing tablet (eight) Branch hours as needed for Nausea and Vomiting (N/V). ondansetron 2019-0 Yes [id number] 4mg Take 1 Univers (ZOFRAN 3-04 tablet by ity of ODT) 4 mg 00:00: mouth [place] disintegrat 00 every 8 Medic al ing tablet (eight) Branch hours as needed for Nausea and Vomiting (N/V). ondansetron 2019-0 Yes [id number] 4mg Take 1 Univers (ZOFRAN 3-04 tablet by ity of ODT) 4 mg 00:00: mouth [place] disintegrat 00 every 8 Medic al ing tablet (eight) Branch hours as needed for Nausea and Vomiting (N/V). ondansetron 2019-0 Yes [id number] 4mg Take 1 Univers (ZOFRAN 3-04 tablet by ity of ODT) 4 mg 00:00: mouth [place] disintegrat 00 every 8 Medic al ing tablet (eight) Branch hours as needed for Nausea and Vomiting (N/V). traMADOL 2016-07 Yes 50mg Take 1 Univers (ULTRAM) 50 0-07 tablet by ity of mg tablet 00:00: mouth [place] 00 every 6 Medical (six) Branch hours as needed for Pain (scale 4-6). traMADOL 2016-07 Yes 50mg Take 1 Univers (ULTRAM) 50 0-07 tablet by ity of mg tablet 00:00: mouth [place] 00 every 6 Medical (six) Branch hours as needed for Pain (scale 4-6). traMADOL 2016-07 Yes 50mg Take 1 Univers (ULTRAM) 50 0-07 tablet by ity of mg tablet 00:00: mouth [place] 00 every 6 Medical (six) Branch hours as needed for Pain (scale 4-6). traMADOL 2016-07 Yes 50mg Take 1 Univers (ULTRAM) 50 0-07 tablet by ity of mg tablet 00:00: mouth [place] 00 every 6 Medical (six) Branch hours as needed for Pain (scale 4-6). traMADOL 2016-07 Yes 50mg Take 1 Univers (ULTRAM) 50 0-07 tablet by ity of mg tablet 00:00: mouth [place] 00 every 6 Medical (six) Branch hours as needed for Pain (scale 4-6). traMADOL 2016-07 Yes 50mg Take 1 Univers (ULTRAM) 50 0-07 tablet by ity of mg tablet 00:00: mouth [place] 00 every 6 Medical (six) Branch hours as needed for Pain (scale 4-6). traMADOL 2016- Yes 50mg Take 1 Univers (ULTRAM) 50 0-07 tablet by ity of mg tablet 00:00: mouth [place] 00 every 6 Medical (six) Branch hours as needed for Pain (scale 4-6). traMADOL 2016-1 Yes 50mg Take 1 Univers (ULTRAM) 50 0-07 tablet by ity of mg tablet 00:00: mouth [place] 00 every 6 Medical (six) Branch hours as needed for Pain (scale 4-6). proMETHazin 2017-0 Yes 25mg Take 1 Univ ers e 25 mg 1-02 tablet by ity of tablet 00:00: mouth [place] 00 every 6 Medical (six) Branch hours as needed for Nausea and Vomiting (N/V). proMETHazin 2017-0 Yes 25mg Take 1 Univ ers e 25 mg 1-02 tablet by ity of tablet 00:00: mouth [place] 00 every 6 Medical (six) Branch hours as needed for Nausea and Vomiting (N/V). proMETHazin 2017-0 Yes 25mg Take 1 Univ ers e 25 mg 1-02 tablet by ity of tablet 00:00: mouth [place] 00 every 6 Medical (six) Branch hours as needed for Nausea and Vomiting (N/V). proMETHazin 2017-0 Yes 25mg Take 1 Univ ers e 25 mg 1-02 tablet by ity of tablet 00:00: mouth [place] 00 every 6 Medical (six) Branch hours as needed for Nausea and Vomiting (N/V). proMETHazin 2017-0 Yes 25mg Take 1 Univ ers e 25 mg 1-02 tablet by ity of tablet 00:00: mouth [place] 00 every 6 Medical (six) Branch hours as needed for Nausea and Vomiting (N/V). proMETHazin 2017-0 Yes 25mg Take 1 Univ ers e 25 mg 1-02 tablet by ity of tablet 00:00: mouth [place] 00 every 6 Medical (six) Branch hours as needed for Nausea and Vomiting (N/V). proMETHazin 2017-0 Yes 25mg Take 1 Univ ers e 25 mg 1-02 tablet by ity of tablet 00:00: mouth [place] 00 every 6 Medical (six) Branch hours as needed for Nausea and Vomiting (N/V). proMETHazin 2017-0 Yes 25mg Take 1 Univ ers e 25 mg 1-02 tablet by ity of tablet 00:00: mouth [place] 00 every 6 Medical (six) Branch hours as needed for Nausea and Vomiting (N/V). benzonatate 2015-0 Yes 100mg Take 1 Uni vers (TESSALON 8-29 capsule by ity of ALEX) 100 00:00: mouth 3 Nathaniel as mg capsule 00 (three) Medica l times Branch daily as needed for Cough. benzonatate 2016-0 Yes 100mg Take 1 Uni vers (TESSALON 8-29 capsule by ity of PERLDoctor kinetic) 100 00:00: mouth 3 Nathaniel as mg capsule 00 (three) Medica l times Branch daily as needed for Cough. benzonatate 2016-0 Yes 100mg Take 1 Uni vers (TESSALON 8-29 capsule by ity of PERL) 100 00:00: mouth 3 Nathaniel as mg capsule 00 (three) Medica l times Branch daily as needed for Cough. benzonatate 2016-0 Yes 100mg Take 1 Uni vers (TESSALON 8-29 capsule by ity of PERLDoctor kinetic) 100 00:00: mouth 3 Nathaniel as mg capsule 00 (three) Medica l times Branch daily as needed for Cough. benzonatate 2016-0 Yes 100mg Take 1 Uni vers (TESSALON 8-29 capsule by ity of PERL) 100 00:00: mouth 3 Nathaniel as mg capsule 00 (three) Medica l times Branch daily as needed for Cough. benzonatate 2016-0 Yes 100mg Take 1 Uni vers (TESSALON 8-29 capsule by ity of PERL) 100 00:00: mouth 3 Nathaniel as mg capsule 00 (three) Medica l times Branch daily as needed for Cough. benzonatate 2016-0 Yes 100mg Take 1 Uni vers (TESSALON 8-29 capsule by ity PERL) 100 00:00: mouth 3 Nathaniel as mg capsule 00 (three) Medica l times Branch daily as needed for Cough. benzonatate 2016-0 Yes 100mg Take 1 Uni vers (TESSALON 8-29 capsule by ity of [facility]) 100 00:00: mouth 3 Nathaniel as mg capsule 00 (three) Medica l times Branch daily as needed for Cough. albuterol 2015- 2020- No 2.5mg Inhale 3 Un miquel (PROVENTIL) 03-19-31 mL every 4 i ty of 2.5 mg /3 00:00: 00:00 (four) [place] mL (0.083 00 :00 hours as Medica l %) needed for Branch nebulizer Wheezing solution or Shortness of Breath. May also nebulize one extra every 6 hours. predniSONE 2015- 2020- No 1 tab PO Un miquel (DELTASONE) 8-29 07-31 BID x 4 ity of 20 mg 00:00: 00:00 days [place] tablet 00 :00 Medical Branch Immunizations Ordered Filled Immunization Date Status Comments [facility] e Immunization Name Name Pneumococcal 2015-01-17 Completed University o f Polysaccharide, 00:00:00 [place] Med ical PPSV23 (PNEUMOVAX) Branch Pneumococcal 2015-01-17 Completed University o f Polysaccharide, 00:00:00 [place] Med ical PPSV23 (PNEUMOVAX) Branch Pneumococcal 2015-01-17 Completed University o f Polysaccharide, 00:00:00 [place] Med ical PPSV23 (PNEUMOVAX) Branch Pneumococcal 2015-01-17 Completed University o f Polysaccharide, 00:00:00 [place] Med ical PPSV23 (PNEUMOVAX) Branch Pneumococcal 2015-01-17 Completed University o f Polysaccharide, 00:00:00 [place] Med ical PPSV23 (PNEUMOVAX) Branch Pneumococcal 2015-01-17 Completed University o f Polysaccharide, 00:00:00 [place] Med ical PPSV23 (PNEUMOVAX) Branch Pneumococcal 2015-01-17 Completed University o f Polysaccharide, 00:00:00 [place] Med ical PPSV23 (PNEUMOVAX) Branch Pneumococcal 2015-01-17 Completed University o f Polysaccharide, 00:00:00 [place] Med ical PPSV23 (PNEUMOVAX) Branch TDAP 2014-11-11 Completed University of 00:00:00 [facility] [place] [facility] TDAP 2014-11-11 Completed University of 00:00:00 [facility] [place] [facility] TDAP 2014-11-11 Completed University of 00:00:00 [facility] [place] [facility] TDAP 2014-11-11 Completed University of 00:00:00 [facility] [place] [facility] TDAP 2014-11-11 Completed University of 00:00:00 [facility] [place] [facility] TDAP 2014-11-11 Completed University of 00:00:00 [facility] [place] [facility] TDAP 2014-11-11 Completed University of 00:00:00 [facility] [place] [facility] TDAP 2014-11-11 Completed University of 00:00:00 [facility] [place] [facility] Vital Signs Vital Name Observation Time Observation Value Comments Source Systolic blood 2022-07-24 18:21:00 162 mm[Hg] Univer sity of pressure [facility] [place] [facility] Diastolic blood 2022-07-24 18:21:00 98 mm[Hg] Unive rsity of pressure [facility] [place] [facility] Heart rate 2022-07-24 18:21:00 75 /min [facility] ty [facility] [place] [facility] Respiratory rate 2022-07-24 18:21:00 20 /min Univ ersity of [place] [facility] Oxygen saturation in 2022-07-24 18:21:00 97 /min University of Arterial blood by [place] UXFLIP suly Pulse oximetry Branch Body temperature 2022-07-24 15:47:00 36.72 Lauren [facility] [place] [facility] Body height 2022-07-24 15:47:00 165.1 cm [facility] [place] [facility] Body weight 2022-07-24 15:47:00 195.047 kg [facility] [place] [facility] BMI 2022-07-24 15:47:00 71.56 kg/m2 [facility] [place] [facility] Systolic blood 2020-02-19 18:46:00 170 mm[Hg] Univer sity of pressure [place] [facility] Diastolic blood 2020-02-19 18:46:00 83 mm[Hg] Unive rsity of pressure [place] [facility] Heart rate 2020-02-19 18:46:00 58 /min [facility] [place] [facility] Respiratory rate 2020-02-19 18:46:00 17 /min Univ ersity [facility] [place] [facility] Oxygen saturation in 2020-02-19 18:46:00 95 /min University of Arterial blood by [facility] Pulse oximetry Branch Body temperature 2020-02-19 17:00:00 36.22 Lauren [facility] [place] [facility] Body height 2020-02-18 15:14:00 165.1 cm [facility] [place] [facility] Body weight 2020-02-18 10:41:00 215.459 kg [facility] [place] [facility] BMI 2020-02-18 10:41:00 79.04 kg/m2 [facility] [place] [facility] Systolic blood 2020-02-19 18:46:00 170 mm[Hg] Univer sity of pressure [place] [facility] Diastolic blood 2020-02-19 18:46:00 83 mm[Hg] Unive rsity of pressure [place] [facility] Heart rate 2020-02-19 18:46:00 58 /min [facility] [place] [facility] Respiratory rate 2020-02-19 18:46:00 17 /min Univ ersity [facility] [place] [facility] Oxygen saturation in 2020-02-19 18:46:00 95 /min University of Arterial blood by [place] UXFLIP suly Pulse oximetry Branch Body temperature 2020-02-19 17:00:00 36.22 Lauren Univ [facility] Body height 2020-02-18 15:14:00 165.1 cm [facility] Body weight 2020-02-18 10:41:00 215.459 kg [facility] BMI 2020-02-18 10:41:00 79.04 kg/m2 [facility] Procedures Procedure Date / Time Performing Clinician Source Performed RAPID STREP SCREEN FOR 2022-07-24 16:47:00 Lakshmi Vicente [facility] GROUP A [facility] [place] CONSENT/REFUSAL FOR 2022-07-24 15:42:25 Doctor Unassigned, No Un [facility] DIAGNOSIS AND TREATMENT Name [facility] [place] POCT GLUCOSE (AUTOMATED) 2020-02-19 17:15:00 Jadon Ascencio [facility] POCT GLUCOSE (AUTOMATED) 2020-02-19 13:11:00 Jadon Ascencio [facility] PHOSPHORUS 2020-02-19 10:44:00 Percy Uriostegui [facility] MAGNESIUM 2020-02-19 10:44:00 Gila [facility] COMP. METABOLIC PANEL 2020-02-19 10:44:00 Percy Uriostegui [facility] ([id number]) [facility] CBC WITH DIFF 2020-02-19 10:44:00 Gila [facility] N-TERMINAL PRO-BNP 2020-02-19 10:44:00 Gila la [facility] POCT GLUCOSE (AUTOMATED) 2020-02-19 00:42:00 Jadon Ascencio [facility] POCT GLUCOSE (AUTOMATED) 2020-02-18 23:04:00 Jadon Ascencio [facility] CT CHEST PULMONARY 2020-02-18 22:10:00 Jadon Ascencio [facility] ANGIOGRAM [facility] POCT GLUCOSE (AUTOMATED) 2020-02-18 17:53:00 Jadon Ascencio [facility] VITAMIN B12, LEVEL 2020-02-18 14:10:00 Gila la [facility] C-REACTIVE PROTEIN 2020-02-18 14:10:00 Gila [facility] IRON PANEL 2020-02-18 14:10:00 Gila [facility] PROTHROMBIN TIME / INR 2020-02-18 14:10:00 Gila la [facility] D-DIMER 2020-02-18 14:10:00 Gila [facility] N-TERMINAL PRO-BNP 2020-02-18 14:10:00 Gila [facility] VITAMIN D, 25-OH 2020-02-18 14:10:00 Gila [facility] PROCALCITONIN 2020-02-18 14:10:00 Gila [facility] PHOSPHORUS 2020-02-18 14:08:00 Gila [facility] MAGNESIUM 2020-02-18 14:08:00 Gila [facility] FERRITIN SERUM 2020-02-18 14:08:00 Gila [facility] THYROID STIMULATING 2020-02-18 14:08:00 Gila la [facility] HORMONE [facility] LIPID PANEL 2020-02-18 14:08:00 Gila [facility] ([id number])(TOTAL [facility] [place] CHOLESTEROL, TRIGLYCERIDES, HDL) ACUTE CARE VENOUS BLOOD 2020-02-18 14:08:00 Gila [facility] GAS [facility] SEDIMENTATION RATE 2020-02-18 14:08:00 Gila [facility] GLYCOSYLATED HEMOGLOBIN 2020-02-18 14:08:00 Gila [facility] (A1C) [facility] XR CHEST 1 VW 2020-02-18 11:19:28 Juan Mccarthy [facility] LIPASE 2020-02-18 11:08:00 Juan Mccarthy [facility] TROPONIN I 2020-02-18 11:08:00 Juan Mccarthy [facility] COMP. METABOLIC PANEL 2020-02-18 11:08:00 [facility]arthy [facility] [place] [facility] ([id number]) [facility] CBC WITH DIFF 2020-02-18 11:08:00 Juan Mccarthy [facility] N-TERMINAL PRO-BNP 2020-02-18 11:08:00 [facility] COVID-19 (ID NOW RAPID 2020-02-18 11:01:00 Juan Mccarthy [facility] TESTING) [facility] POCT TEST 2020-02-18 10:58:00 Juan Mccarthy [facility] EKG-12 LEAD 2020-02-18 10:47:05 Juan Mccarthy [facility] EKG-12 LEAD 2020-02-18 10:39:34 Juan Mccarthy [facility] ASSIGNMENT OF BENEFITS 2020-02-18 10:24:53 Doctor Unassigned, No [facility] NOTICE OF PRIVACY 2020-02-18 10:24:19 Doctor Unassigned, No [facility] PRACTICES Name [facility] CONSENT/REFUSAL FOR 2020-02-18 10:24:01 Doctor Unassigned, No [facility] DIAGNOSIS AND TREATMENT Name [facility] Plan of Care Planned Activity Planned Date Details Comments Source Encounters Start End Encounter Admission Attending Care Care Encounter Source Date/Time Date/Time Type Type Clinicians Facility Department ID 2022-07-24 2022-07-24 Emergency X JULES MAMARY JO ERT [id number] Univers 09:48:00 12:45:[facility] 2022-07-24 2022-07-24 Emergency NATHANIEL Vicente [id number] Univers 09:48:00 12:45:00 Lakshmi GROSS [id number] i ty of [place] 4.2.7.2.686 [id number] [facility] 084 Branch 2022-07-24 2022-07-24 Orders Doctor BRENNAN [id number] Univers 00:00:00 00:00:00 Only Unassigned, LOGAN [id number] ity of [place] [facility] 4.2.7.2.686 Nathaniel [id number] [facility] 009 Branch 2020-03-22 2020-03-22 Patient Wellington Henry 1.2.840.114 [id number] 00:00:00 00:00:00 Outreach Coleen E Deleon [id number] [place] 4.2.7.2.686 [id number] 2020-03-22 2020-03-22 Patient Karine Henrybhupendra 1.2.840.114 [id number] Univers 00:00:00 00:00:00 Outreach Coleen E De[place] 350.1.13.10 i ty [place] [id number] [address] 2020-03-08 2020-03-08 Patient Meg Hilario [place] 1.2.840.114 [id number] 00:00:00 00:00:00 Outreach E Deleon [id number] [place] 4.2.7.2.686 [id number] [facility] 2020-03-08 2020-03-08 Patient Meg Hilario [place] 1.2.840.114 [id number] [facility] 00:00:00 00:00:00 Outreach E Dele[place] 350.1.13.10 i ty [place] [id number] [address] 2020-02-23 2020-02-23 Patient Wellington Henry 1.2.840.114 [id number] 00:00:00 00:00:00 Outreach Coleen E Deleon 350.1.13.10 [place] 4.2.7.2.686 [id number] [facility] 2020-02-23 2020-02-23 Patient Wellington Henry 1.2.840.114 [id number] [facility] 00:00:00 00:00:00 Outreach Coleen E Dele[place] 350.1.13.10 i ty [place] [id number] [place] [address] Branch 2020-02-22 2020-02-22 Transition Wellington Webster 1.2.840.114 [id number] 00:00:00 00:00:00 of Care Annia Deleon 350.1.13.10 [place] 4.2.7.2.686 [id number] [facility] 2020-02-22 2020-02-22 Transition Wellington Webster 1.2.840.114 [id number] 00:00:00 00:00:00 of Care Annia Deleon 350.1.13.10 [place] 4.2.7.2.686 [id number] [facility] 2020-02-22 2020-02-22 Transition Wellington Webster 1.2.840.114 [id number] Univers 00:00:00 00:00:00 of Care Annia Dele[place] 350.1.13.10 ity [place] [id number] [address] 2020-02-22 2020-02-22 Transition Wellington Webster 1.2.840.114 [id number] Univers 00:00:00 00:00:00 of Care Annia Deleon 350.1.13.10 ity [place] [id number] [address] 2020-02-18 2020-02-19 [facility] 1.2.840. 114 [id number] Univers 05:27:00 16:00:00 Encounter Jadon Ascencio 350.1.13.10 ity of [place] 4.2.7.2.686 [facility] [id number] [address] 2020-02-18 2020-02-19 [facility] 1.2.840. 114 [id number] 05:27:00 16:00:00 Encounter Jadon Ascencio 350.1.13.10 [place] 4.2.7.2.686 [place] [id number] [facility] 2020-02-18 2020-02-18 Emergency X [facility] ERT [id number] Univers 05:27:00 05:27:00 [facility] Results Test Description Test Time Test Comments Results Result Comments Source POCT GLUCOSE (AUTOMATED) 2020-02-19 18:40:00 Test Item Value Reference Range Interpretation Comme nts POCT GLU (test code = 7136275260) 217 mg/dL 70-110 H Lab Interpretation (test code = 01167-0) [facility] 15:40:00 Test Item Value Reference Range Interpretation Comments POCT GLU (test code = 5862685199) 161 mg/dL 70-110 H Lab Interpretation (test code = Abnormal 42460-5) [facility] WITH [id number] 14:16:00 Test Item Value Reference Range Interpretation Comments WBC (test code = See_Comment [Automated 6690-2) message] The sy stem which generated this result transmitted reference range : 4.30 - 11.10 10*3/?L. The reference range was not used to interpret this result as normal/abnormal . RBC (test code = See_Comment [Automated 789-8) message] The sy stem which generated this result transmitted reference range : 3.93 - 5.25 10*6/?L. The reference range was not used to interpret this result as normal/abnormal . HGB (test code = 9.9 g/dL 11.6-15 L 718-7) HCT (test code = 32.5 % 35.7-45.2 L 4544-3) MCV (test code = 81.9 fL 80.6-95.5 787-2) MCH (test code = 24.9 pg 25.9-32.8 L 785-6) MCHC (test code = 30.5 g/dL 31.6-35.1 L 786-4) RDW-SD (test code = 40.8 fL 39-49.9 12212-2) RDW-CV (test code = 13.6 % 12-15.5 788-0) PLT (test code = See_Comment H [Automated 777-3) message] The sy stem which generated this result transmitted reference range : 166 - 358 10*3/ ?L. The reference r rosibel was not used to interpret this result as normal/abnormal . MPV (test code = 10.1 fL 9.5-12.9 70698-9) NRBC/100 WBC (test See_Comment [Automat ed code = 5854518223) message] The system which generated this result transmitted reference range : 0.0 - 10.0 /100 WBCs. The refer ence range was not u sed to interpret th is result as normal/abnormal . NRBC x10^3 (test code See_Comment [Auto mated = 9591279856) message] The s ystem which generated this result transmitted reference range : 10*3/?L. The reference range was not used to interpret this result as normal/abnormal . GRAN MAT (NEUT) % 70.8 % (test code = 770-8) IMM GRAN % (test code 2.10 % = 6236536174) LYMPH % (test code = 19.3 % 736-9) MONO % (test code = 7.3 % 5905-5) EOS % (test code = 0.2 % 713-8) BASO % (test code = 0.3 % 706-2) GRAN MAT x10^3(ANC) 6.84 10*3/uL 1.88-7.09 (test code = 6089155022) IMM GRAN x10^3 (test 0.20 10*3/uL 0-0.06 H code = 3075496187) LYMPH x10^3 (test code 1.86 10*3/uL 1.32-3.29 = 731-0) MONO x10^3 (test code 0.71 10*3/uL 0.33-0.92 = 742-7) EOS x10^3 (test code = <0.03 0.03-0.39 L 711-2) BASO x10^3 (test code 0.03 10*3/uL 0.01-0.07 = 704-7) GIANT PLATELETS (test Present See_Comment A [Auto mated code = 5908-9) message] The system which generated this result transmitted reference range : (none). The reference range was not used to interpret this result as normal/abnormal . Lab Interpretation Abnormal (test code = 10719-2) [facility] [id number] 14:15:00 Test Item Value Reference Range Interpretation Comments CRP (test code = 7624333400) 5.4 mg/dL <0.8 H Lab Interpretation (test code = Abnormal 14702-9) [facility] [id number] 11:53:00 Test Item Value Reference Range Interpretation Comments NT-proBNP (test code 221 pg/mL See_Comment H [Autom ated = 9678283806) message] The system which generated this result transmitted reference range : <=125. The reference range was not used to interpret this result as normal/abnormal . DEANNA (test code = DEANNA) Biotin has been reported to cause a negative bias, interpret results relative to patient's use of biotin. Lab Interpretation Abnormal (test code = 71881-7) [facility]. METABOLIC PANEL (86750)2020-02-19 11:46:00 Test Item Value Reference Range Interpretation Comments NA (test code = 139 mmol/L 135-145 0244850547) K (test code = 4.0 mmol/L 3.5-5 8760851888) CL (test code = 106 mmol/L 98-108 7608609269) CO2 TOTAL (test code = 26 mmol/L 23-31 9510539501) AGAP (test code = 2-16 9635456564) BUN (test code = 10 mg/dL 7-23 2821907886) GLUCOSE (test code = 174 mg/dL 70-110 H 9588162358) CREATININE (test code = 0.56 mg/dL 0.5-1.04 3460808599) TOTAL BILI (test code = 0.3 mg/dL 0.1-1.2 2152249919) CALCIUM (test code = 9.0 mg/dL 8.6-10.6 1257105049) T PROTEIN (test code = 7.9 g/dL 6.3-8.2 1307132999) ALBUMIN (test code = 3.8 g/dL 3.5-5 7743507614) ALK PHOS (test code = 88 U/L 34-122 9311098945) ALTv (test code = 33 U/L 5-35 1742-6) AST(SGOT) (test code = 34 U/L 13-40 9607039335) eGFR Calculation mL/min/1.73m2 (Non-) (test code = 9457174263) eGFR Calculation mL/min/1.73m2 () (test code = 2537412463) DEANNA (test code = DEANNA) Association of Glomerular Filtration Rate (GFR) and Staging of Kidney Disease* + --+ --+ ------+| GFR (mL/min/1.73 m2) ?| With Kidney Damage ?| ?Without Kidney Damage+ --------+ --------+ +| ?>90 ?| ?Stage one ?| ? Normal ?+ ---+ ---+ -------+| ?60-89 ?| ?Stage two ?| ? Decreased GFR ? + --+ --+ ------+| ?30-59 ?| ?Stage three ?| ? Stage three ? + --+ --+ ------+| ?15-29 ?| ?Stage four ? | ? Stage four ?+ ---+ ---+ -------+| ?<15 (or dialysis) ? ?| ?Stage five ? | ? Stage five ?+ ---+ ---+ -------+ *Each stage assumes the associated GFR level has been in effect for at least three months. ?Stages 1 to 5, with or without kidney disease, indicate chronic kidney disease. Notes: Determination of stages one and two (with eGFR >59mL/min/1.73 m2) requires estimation of kidney damage for at least three months as defined by structural or functional abnormalities of the kidney, manifested by either:Pathological abnormalities or Markers of kidney damage (including abnormalities in the composition of the blood or urine or abnormalities in imaging tests). Lab Interpretation Abnormal (test code = 49206-8) [facility] 11:46:00 Test Item Value Reference Range Interpretation Comments MAGNESIUM (test code = 1685169119) 2.6 mg/dL 1.7-2.4 H Lab Interpretation (test code = Abnormal 44255-1) [facility] 11:45:00 Test Item Value Reference Range Interpretation Comments PHOSPHORUS (test code = 2695196364) 3.9 mg/dL 2.5-5 Lab Interpretation (test code = Normal 01758-8) [facility], [id number] 01:00:00 Test Item Value Reference Range Interpretation Comments VIT D 25OH (test code = <13 25-80 L 90173-7) DEANNA (test code = DEANNA) Deficiency: <20 ng/mLInsufficiency: 20-24 ng/mLOptimal: 25-80 ng/mL Lab Interpretation (test Abnormal code = 69359-7) [facility]2020-02[facility]19 00:53:00 Test Item Value Reference Range Interpretation Comments POCT GLU (test code = 9125002754) 250 mg/dL 70-110 H Lab Interpretation (test code = Abnormal 78027-9) [facility] GLUCOSE (AUTOMATED)2020-02-19 00:35:00 Test Item Value Reference Range Interpretation Comments POCT GLU (test code = 0058291061) 226 mg/dL 70-110 H Lab Interpretation (test code = Abnormal 79320-0) [facility] CHEST PULMONARY [id number] 23:19:04Limited exam due to patient body habitus, respiratory motion and contrastbolus timing. No acute pulmonary embolism to the proximal segmental level. Dilated main pulmonary trunk may be seen with elevated pulmonary arterypressures. Bilateral confluent consolidative and groundglass opacities withinterlobular septal thickening, nonspecific but likely multifocal/viralinfection such as Covid-19 pneumonia. Clinical correlation is recommended. Severe hepatic steatosis and splenomegaly. Preliminary Report Dictated by Resident: Sohail Thompson ?MD Tessa., have reviewed this study and agree with theabove report.PROCEDURE: CT ANGIO CHEST WITH CONTRAST - PE PROTOCOL CLINICAL INDICATION: PE suspected, intermediate prob, neg D-dimer ? COMPARISON: Same day chest radiating TECHNIQUE: ?Helical CT was performed and reconstructed at 1.25 mm slicethickness from lung base to apices after the administration of 140 mLOmnipaque-350 intravenous contrast, without complication. ?Display field ofview: 50 cm. FINDINGS: PULMONARY ARTERIES:Contrast bolus timing is suboptimal for evaluation of pulmonary arterialvasculature. Additionally, respiratory motion further limits evaluation. Nodiscernible filling defect at the proximal segmental level. Main pulmonarytrunk is mildly dilatedmeasuring up to 3.5 cm. CHEST:Lower neck/thyroid: The visualized lower neck is unremarkable. Lungs/Pl eura: Bilateral patchy and confluent consolidative and groundglassopacities with interlobular septalthickening. No pleural effusion orpneumothorax. Central airway: The central airways are patent. Reactive bronchial wallthickening. Small airway mucus plugging suspected but difficult tovisualize due tomotion artifact. Thoracic aorta and great vessels: Normal in diameter. Heart and pericardium: No detectable coronary arterial calcification.Unremarkable cardiac morphology and pericardium. Mediastinum/Lymph nodes: Scattered subcentimeter mediastinal and bilateralhilar lymph nodes, likely reactive. Largest right hilar lymph node measures1.7 cm short axis. Largest left hilar lymph node measures 1.6 cm in shortaxis. Additional mildly prominent lymph nodes scattered in paratracheal andprevascular distribution. Few additional bilateral nodules scattered in bilateral breast axillarytail and axillary regions measuring up to 1.4 cm (for example 4:45). Theseprobably represent lymph nodes. Thoracic spine and chest wall: No suspicious or aggressive osseous lesion. Other Lines/Tubes/Devices/Hardware: None Visualized upper abdomen: Splenomegaly measuring nearly 15 cm incraniocaudal dimension. Severe hepatic s teatosis. [facility], Radiant Results Inft User - 02/18/2020 6:20 PM CDTPROCEDURE: CT ANGIO CHEST WITH CONTRAST - PE PROTOCOLCLINICAL INDICATION: PE suspected, intermediate prob, neg D-dimer COMPARISON: Same day chest radiatingTECHNIQUE: Helical CT was performed and reconstructed at 1.25 mm slicethickness from lung base to apices after the administration of 140 mLOmnipaque-350 intravenous contrast, without complication. Display field ofview: 50 cm.FINDINGS:PULMONARY ARTERIES:Contrast bolus timing is suboptimal for evaluation of pulmonary arterialvasculature. Additionally, respiratory motion further limits evaluation. Nodiscernible filling defect at the proximal segmental level. Main pulmonarytrunk is mildly dilated measuring up to 3.5 cm.CHEST:Lower neck/thyroid: The visualized lower neck is unremarkable.Lungs/Pleura: Bilateral patchy and confluent consolidative and groundglassopacities with interlobular septal thickening. No pleural effusion orpneumothorax.Central airway: The central airways are patent. Reactive bronchial wallthickening. Small airway mucus plugging suspected but difficult tovisualize due to motion artifact. Thoracic aorta and great vessels: Normal in diameter.Heart and pericardium: No detectable coronary arterial calcification.Unremarkable cardiac morphology and pericardium. Mediastinum/Lymph nodes: Scattered subcentimeter mediastinal and bilateralhilar lymph nodes, likely reactive. Largest right hilar lymph node measures1.7 cm short axis. Largestleft hilar lymph node measures 1.6 cm in shortaxis. Additional mildly prominent lymph nodes scattered in paratracheal andprevascular distribution.Few additional bilateral nodules scattered in bilateralbreast axillarytail and axillary regions measuring up to 1.4 cm (for example 4:45). Theseprobably rep resent lymph nodes.Thoracic spine and chest wall: No suspicious or aggressive osseous lesion.Other Lines/Tubes/Devices/Hardware: NoneVisualized upper abdomen: Splenomegaly measuring nearly 15 cm incraniocaudal dimension. Severe hepatic steatosis. IMPRESSIONLimited exam due to patient body habitus, respiratory motion and contrastbolus timing.No acute pulmonary embolism tothe proximal segmental level. Dilated main pulmonary trunk may be seen with elevated pulmonary arterypressures.Bilateral confluent consolidative and groundglass opacities withinterlobular septal thickening, nonspecific but likely multifocal/viralinfection such as Covid-19 pneumonia. Clinical correlatio n is recommended.Severe hepatic steatosis and splenomegaly. Preliminary Report Dictated by Resident: Sohail Post MD., have reviewed this study and agree with theabove report.[facility] CenterPROCALCITONIN 2020-02-18 22:20:00 Test Item Value Reference Range Interpretation Comments Procalcitonin (test 0.03 ng/mL <0.07 code = 4537887484) DEANNA (test code = DEANNA) INTERPRETATION OF PROCALCITONIN RESULTS IN ADULTS >= 18 YEARS OF AGE Initiation and discontinuation of antibiotics on patients with suspected or confirmed Lower Respiratory Tract Infection in Adults >= 18 years of age. + +-------- --------+ + -----+|Procalcitonin |Interpretation ?|Antibiotic ? ? |Considerations ? |ng/mL ? | ?|recommendation | ? + +-------- --------+ + -----+| <0.1 ? | Bacterial ? ? ?| Strongly ? ? ?| ? | ?| infection very | discouraged ? | Overruling: ? | ?| unlikely ? ? ? | ? | ? Clinically unstable ? ? ? + +-------- --------+ + ? High risk for adverse ? ? | <0.25 ?| Bacterial ? ? ?| Discouraged ? | ? outcome ? | ?| infection ? ? ?| ? | ? SEE IMPORTANT NOTE ?| ?| unlikely ? ? ? | ? | ? + +-------- --------+ + -----+| >=0.25 ? ? ? | Bacterial ? ? ?| Encouraged ? ?| ? | ?| infection ? ? ?| ? | ? | ?| likely ? | ? | Consider treatment failure ?+ +------- ---------+ -+ if levels does not decrease | >0.5 ? | Bacterial ? ? ?| Strongly ? ? ?| appropriately ? | ?| infection very | encouraged ? ?| ? | ?| likely ? | ? | ? + +-------- --------+ + -----+ Discontinuation of antibiotics in high-acuity patients with suspected or confirmed sepsis in Adults >= 18 years of age. + +-------- --------+ + -----+|Procalcitonin |Interpretation ?|Antibiotic ? ? |Considerations ? |ng/mL ? | ?|recommendation | ? + +-------- --------+ + -----+| <0.25 ?| Bacterial ? ? ?| Strongly ? ? ?| ? | ?| infection very | discouraged ? | Overruling: ? | ?| unlikely ? ? ? | ? | ? Clinically unstable ? ? ? + +-------- --------+ + ? High risk for adverse ? ? | <0.5 or drop | Bacterial ? ? ?| Discouraged ? | ? outcome ? | >80% from ? ?| infection ? ? ?| ? | ? SEE IMPORTANT NOTE ?| highest PCT ?| unlikely ? ? ? | ? | ? | level ?| ?| ? | ? + +-------- --------+ + -----+| >=0.5 ?| Bacterial ? ? ?| Encouraged ? ?| ? | ?| infection ? ? ?| ? | ? | ?| likely ? | ? | Consider treatment failure ?+ +------- ---------+ -+ if levels does not decrease | >1.0 ? | Bacterial ? ? ?| Strongly ? ? ?| appropriately ? | ?| infection very | encouraged ? ?| ? | ?| likely ? | ? | ? + +-------- --------+ + -----+ Percentage of drop of Procalcitonin calculation for Discontinuation of antibiotics in high-acuity patients with suspected or confirmed sepsis in Adults >= 18 years of age. ? Procalcitonin highest{}-Procalcitonin current{}Delta Procalcitonin = x100% ? Procalcitonin current {} IMPORTANT NOTE: Procalcitonin may be elevated without bacterial infection by physiologic stress related to trauma, moore, chronic dialysis, metastatic cancer, surgery in the past seven days, malaria, some fungal infections, and some forms of vasculitis. The interpretation algorithm may not apply to patients with immunosuppression (equivalent of >10 mg of prednisone daily), HIV with CD4 cell count < 350 cells/mm3, active malignancy on systemic chemotherapy, solid organ transplant or hematopoietic stem cell transplantation, or hospital acquired pneumonia. Additionally, some clinical trials of procalcitonin have excluded patients with shock requiring vasopressor use, acute respiratory failure requiring mechanical ventilation, or those with known lung abscess/empyema. For further information please refer to:[email or web address] Lab Interpretation Normal (test code = 59663-3) [facility] CenterVITAMIN B12, [id number] 22:11:00 Test Item Value Reference Range Interpretation Comments VIT B12 (test code = >1000 240-930 H 5417051828) DEANNA (test code = DEANNA) Biotin has been reported to cause a positive bias, interpret results relative to patient's use of biotin. Lab Interpretation (test Abnormal code = 66567-8) [facility] CenterPOCT GLUCOSE (AUTOMATED)2020-02-18 17:59:00 Test Item Value Reference Range Interpretation Comments POCT GLU (test code = 7797309054) 209 mg/dL 70-110 H Lab Interpretation (test code = Abnormal 31165-5) [facility] CenterSEDIMENTATION [id number] 16:08:00 Test Item Value Reference Range Interpretation Comments ESR (test code = See_Comment [Automated message] 1709041785) The system [employer] generated this result transmitted ref erence range: 0 - 20 m m/HR. The reference r rosibel was not used to interpret this result as normal/abnor mal. Lab Interpretation (test Normal code = 03548-6) [facility] CenterFERRITIN [id number] 15:22:00 Test Item Value Reference Range Interpretation Comments FERRITIN (test code = 51.5 ng/mL 6-137 8628701557) DEANNA (test code = DEANNA) Biotin has been reported to cause a negative bias, interpret results relative to patient's use of biotin. Lab Interpretation (test Normal code = 53593-3) [facility] CenterIRON [id number] 15:22:00 Test Item Value Reference Range Interpretation Comments IRON (test code = 0597243970) 30 ug/dL 50-160 L TIBC (test code = 1854124987) 357 ug/dL 250-410 % FE SAT (test code = 5300929870) 8 % 20-50 L Lab Interpretation (test code = Abnormal 37486-7) [facility] CenterN-TERMINAL [id number] 15:21:00 Test Item Value Reference Range Interpretation Comments NT-proBNP (test code 44 pg/mL See_Comment [Autom ated = 3895385384) message] The system which generated this result transmitted reference range : <=125. The reference range was not used to interpret this result as normal/abnormal . DEANNA (test code = DEANNA) Biotin has been reported to cause a negative bias, interpret results relative to patient's use of biotin. Lab Interpretation Normal (test code = 41454-0) [facility] CenterTHYROID STIMULATING [id number] 15:18:00 Test Item Value Reference Range Interpretation Comments TSH (test code = See_Comment [Automated message] 4348137908) The system [employer] generated this result transmitted ref erence range: 0.45 - 4 .70 mIU/L. The refe rence range was not u sed to interpret this result as normal/abnor mal. Lab Interpretation (test Normal code = 35700-7) [facility] CenterD-[id number] 15:03:00 Test Item Value Reference Interpretation Comments Range D-DIMER (test code = See_Comment H [Autom ated 7836832078) message] The system which generated this result transmitted reference range : <0.41 ?g/mL (FEU). The reference range was not used to interpret this result as normal/abnormal . DEANNA (test code = This test may be DEANNA) used in conjunction with a clinical pretest probability (PTP) assessment model to exclude venous thromboembolism (VTE) in patients suspected of deep venous thrombosis (DVT) and pulmonary embolism (PE) A D-Dimer value less than 0.50 ?g/ml (FEU) has a negative predicative value of 96 to 100% (95% CI)and 97 to 100% (95% CI) as an aid in the diagnosis of deep vein thrombosis (DVT) and pulmonary embolism when there is low or moderate pretest probability of PE or DVT. D-Dimer values are expressed in initial fibrinogen equivalent units (FEU)" The assay results should be used with other information, including the clinical context, in forming a diagnosis. Lab Interpretation Abnormal (test code = 73598-2) [facility] CenterPROTHROMBIN TIME / [id number] 14:59:00 Test Item Value Reference Range Interpretation Comments PROTIME PATIENT (test See_Comment [Auto mated message] code = 5964-2) The system [employer] generated this result transmitted ref erence range: 12.0 - 1 4.7 Seconds. The re ference range was not u sed to interpret this result as normal/abnor mal. INR (test code = 6301-6) Nor mal INR <1.1; Warfarin Therap eutic range 2.0 to 3. 0 or 2.5 to 3.5, dep ending upon the indica tions. Lab Interpretation (test Normal code = 90068-7) [facility] CenterGlycosylated Hemoglobin (A1C)2020-02-18 14:53:00 Test Item Value Reference Range Interpretation Comments HGB A1C (test code = 10.0 % 4-6 H 4548-4) DEANNA (test code = DEANNA) %A1C (NGSP) Interpretation (ADA)4.8-5.6 ? ? Normal or (Non-Diabetic Range)5.7-6.4 ? ? Increased Risk (Pre-Diabetic)>6.5 ?Diabetes Indicated Lab Interpretation Abnormal (test code = 30411-9) [facility] CenterLipid Panel (Total Cholesterol, Triglycerides, HDL) - [id number] 14:46:00 Test Item Value Reference Range Interpretation Comments CHOL (test code = 103 mg/dL 120-200 L 9114134228) HDL (test code = 12 mg/dL >50 L 7092196902) HDLC RATIO (test code = See_Comment H [Au tomated message] 5330765408) The system [employer] generated this result transmit dee dee reference range : <=4.5. The refe rence range was not u sed to interpret th is result as normal/abnormal . TRIG (test code = 214 mg/dL 30-170 H 8860756550) LDL CHOL (test code = 48 mg/dL See_Comment [Auto mated message] 03646-2) The system [employer] generated this result transmit dee dee reference range : <=160. The refe rence range was not u sed to interpret th is result as normal/abnormal . VLDL (test code = 43 mg/dL 5-60 4155341814) Lab Interpretation (test Abnormal code = 72535-6) [facility] CenterMAGNESIUM2020-07-30 14:46:00 Test Item Value Reference Range Interpretation Comments MAGNESIUM (test code = 2541439952) 2.4 mg/dL 1.7-2.4 Lab Interpretation (test code = Normal 07751-0) [facility] CenterPHOSPHORUS2020-07-30 14:46:00 Test Item Value Reference Range Interpretation Comments PHOSPHORUS (test code = 6623789428) 3.7 mg/dL 2.5-5 Lab Interpretation (test code = Normal 41510-1) [facility] CenterACUTE CARE VENOUS BLOOD [id number] 14:29:00 Test Item Value Reference Range Interpretation Comments PH (test code = 7.32-7.42 9817006911) PCO2 ANURAG (test code = See_Comment [Auto mated message] The 1184096017) system which ge nerated this result transmit dee dee reference range : 41 - 51 mmHg. The refer ence range was not used to interpret this result as normal/abnormal . PO2 ANURAG (test code = See_Comment [Autom ated message] The 1715587050) system which ge nerated this result transmit dee dee reference range : 25 - 40 mmHg. The refer ence range was not used to interpret this result as normal/abnormal . HCO3 ANURAG (test code = See_Comment [Auto mated message] The 4671167657) system which ge nerated this result transmit dee dee reference range : 24 - 28 mEq/L. The refe rence range was not used to interpret this result as normal/abnormal . AC VBE(BEAKER) (test mEq/L code = 2716330310) [facility] CenterXR CHEST 1 [id number] 12:21:34EXAM: XR CHEST 1 VW CLINICAL INDICATION: chest pain COMPARISON: 03/19/2016 TECHNIQUE: Frontal and lateral views of the chest were obtained. FINDINGS: Bilateral patchy airspace opacities are present concerning for an atypicalinfectious process including COVID 19 pneumonia. No pleural effusion orpneumothorax. The cardiac silhouette is at the upper limit of normal in size. No acute osseous abnormality. Preliminary Report Dictated by Resident: Fabian Bruce I, Bony Mars MD., have reviewed thisstudy and agree with theabove report.[facility], Radiant Results Inft User - 02/18/2020 7:22 AM CDTEXAM: XR CHEST 1 VWCLINICAL INDICATION: chest pain COMPARISON: 03/19/2016TECHNIQUE: Frontal and lateral viewsof the chest were obtained.FINDINGS:Bilateral patchy airspace opacities are present concerning for an atypicalinfectious process including COVID 19 pneumonia. No pleural effusion orpneumothorax.The cardiac silhouette is at the upper limit of normal in size.No acute osseous abnormality. Preliminary Report Dictated by Resident: Bony Pichardo MD., have reviewed this study and agree with theabove report.[facility] WITH [id number] 11:50:00 Test Item Value Reference Range Interpretation Comments WBC (test code = See_Comment [Automated 6690-2) message] The sy stem which generated this result transmitted reference range : 4.30 - 11.10 10*3/?L. The reference range was not used to interpret this result as normal/abnormal . RBC (test code = See_Comment L [Automated 789-8) message] The sy stem which generated this result transmitted reference range : 3.93 - 5.25 10*6/?L. The reference range was not used to interpret this result as normal/abnormal . HGB (test code = 9.5 g/dL 11.6-15 L 718-7) HCT (test code = 32.0 % 35.7-45.2 L 4544-3) MCV (test code = 82.7 fL 80.6-95.5 787-2) MCH (test code = 24.5 pg 25.9-32.8 L 785-6) MCHC (test code = 29.7 g/dL 31.6-35.1 L 786-4) RDW-SD (test code = 41.4 fL 39-49.9 91888-2) RDW-CV (test code = 13.9 % 12-15.5 788-0) PLT (test code = See_Comment L [Automated 777-3) message] The sy stem which generated this result transmitted reference range : 166 - 358 10*3/ ?L. The reference r rosibel was not used to interpret this result as normal/abnormal . MPV (test code = 11.7 fL 9.5-12.9 40212-1) IPF % (test code = 11.2 % 1.3-7.7 H Platelet count 4383228624) measured by fluorescence method. NRBC/100 WBC (test See_Comment [Automat ed code = 7688523617) message] The system which generated this result transmitted reference range : 0.0 - 10.0 /100 WBCs. The refer ence range was not u sed to interpret th is result as normal/abnormal . NRBC x10^3 (test code See_Comment [Auto mated = 8410391770) message] The s [employer] which generated this result transmitted reference range : 10*3/?L. The reference range was not used to interpret this result as normal/abnormal . GRAN MAT (NEUT) % 63.6 % (test code = 770-8) IMM GRAN % (test code 1.50 % = 4271322397) LYMPH % (test code = 28.2 % 736-9) MONO % (test code = 5.4 % 5905-5) EOS % (test code = 1.0 % 713-8) BASO % (test code = 0.3 % 706-2) GRAN MAT x10^3(ANC) 3.85 10*3/uL 1.88-7.09 (test code = 0949246401) IMM GRAN x10^3 (test 0.09 10*3/uL 0-0.06 H code = 7007894786) LYMPH x10^3 (test code 1.71 10*3/uL 1.32-3.29 = 731-0) MONO x10^3 (test code 0.33 10*3/uL 0.33-0.92 = 742-7) EOS x10^3 (test code = 0.06 10*3/uL 0.03-0.39 711-2) BASO x10^3 (test code <0.03 0.01-0.07 = 704-7) PLT ESTIMATE (test Decreased Normal A code = 9317-9) Lab Interpretation Abnormal (test code = 09804-5) [facility] [id number] 11:40:00 Test Item Value Reference Range Interpretation Comments TROPONIN I (test <0.012 See_Comment [Automated code = 1213354260) message] The system which generated this result transmitted reference range : <=0.034 ng/mL. The reference range was not used to interpr et this result as normal/abnormal . DEANNA (test code = Equal or Less than DEANNA) 0.034 ng/ml---Normal ?Note: Cardiac troponin begins to rise 3-4 hours after the onset of ischemia. Repeat in 4-6 hours if the sample was drawn within 3-4 hours of the onset of the symptom and found normal. Between 0.035 and 0.120 ng/mL--- Borderline. Questionable myocardial injury or necrosis ? ?Note: Serial measurement may be necessary to confirm or exclude the diagnosis of myocardial injury or necrosis; Clinical correlation (symptoms, EKGs, imaging studies, and others) required; Repeat in 4-6 hours if clinically indicated. ? Equal or Higher than 0.121 ng/mL---Abnormal. Myocardial Injury or Necrosis Likely ? Biotin has been reported to cause a negative bias, interpret results relative to patient's use of biotin. ? Lab Interpretation Normal (test code = 74823-1) [facility] CenterN-TERMINAL [id number] 11:37:00 Test Item Value Reference Range Interpretation Comments NT-proBNP (test code 40 pg/mL See_Comment [Autom ated = 9564349969) message] The system which generated this result transmitted reference range : <=125. The reference range was not used to interpret this result as normal/abnormal . DEANNA (test code = DEANNA) Biotin has been reported to cause a negative bias, interpret results relative to patient's use of biotin. Lab Interpretation Normal (test code = 69346-0) [facility] CenterCOMP. METABOLIC PANEL (49639)2020-02-18 11:29:00 Test Item Value Reference Range Interpretation Comments NA (test code = 136 mmol/L 135-145 1147530984) K (test code = 4.3 mmol/L 3.5-5 2725435021) CL (test code = 105 mmol/L 98-108 4477177802) CO2 TOTAL (test code = 24 mmol/L 23-31 3426652946) AGAP (test code = 2-16 4091214002) BUN (test code = 8 mg/dL 7-23 1494843657) GLUCOSE (test code = 150 mg/dL 70-110 H 6510636861) CREATININE (test code = 0.52 mg/dL 0.5-1.04 3842763562) TOTAL BILI (test code = 0.6 mg/dL 0.1-1.4 0086911539) CALCIUM (test code = 8.6 mg/dL 8.6-10.6 2003441155) T PROTEIN (test code = 8.2 g/dL 6.3-8.2 2551483936) ALBUMIN (test code = 3.8 g/dL 3.5-5 5377663571) ALK PHOS (test code = 85 U/L 34-122 8443201436) ALTv (test code = 42 U/L 5-35 H 1742-6) AST(SGOT) (test code = 65 U/L 13-40 H 4034026621) eGFR Calculation mL/min/1.73m2 (Non-) (test code = 6143420394) eGFR Calculation mL/min/1.73m2 () (test code = 9607313577) DEANNA (test code = DEANNA) Association of Glomerular Filtration Rate (GFR) and Staging of Kidney Disease* + --+ --+ ------+| GFR (mL/min/1.73 m2) ?| With Kidney Damage ?| ?Without Kidney Damage+ --------+ --------+ +| ?>90 ?| ?Stage one ?| ? Normal ?+ ---+ ---+ -------+| ?60-89 ?| ?Stage two ?| ? Decreased GFR ? + --+ --+ ------+| ?30-59 ?| ?Stage three ?| ? Stage three ? + --+ --+ ------+| ?15-29 ?| ?Stage four ? | ? Stage four ?+ ---+ ---+ -------+| ?<15 (or dialysis) ? ?| ?Stage five ? | ? Stage five ?+ ---+ ---+ -------+ *Each stage assumes the associated GFR level has been in effect for at least three months. ?Stages 1 to 5, with or without kidney disease, indicate chronic kidney disease. Notes: Determination of stages one and two (with eGFR >59mL/min/1.73 m2) requires estimation of kidney damage for at least three months as defined by structural or functional abnormalities of the kidney, manifested by either:Pathological abnormalities or Markers of kidney damage (including abnormalities in the composition of the blood or urine or abnormalities in imaging tests). Lab Interpretation Abnormal (test code = 07902-9) [facility] CenterLIPASE2020-07-30 11:28:00 Test Item Value Reference Range Interpretation Comments LIPASE (test code = 7693848049) 107 U/L 0-220 Lab Interpretation (test code = Normal 57327-7) [facility] CenterCOVID-19 (ID NOW RAPID TESTING)2020-02-18 11:21:00 Test Item Value Reference Range Interpretation Comments SARS-CoV-2 Rapid ID NOW Positive Not Detected A (test code = 77345-2) DEANNA (test code = DEANNA) ID NOW COVID-19 Assay is an isothermal nucleic acid amplification test intended for the qualitative detection of nucleic acid from SARS-CoV-2 viral RNA in nasopharyngeal (AML ANALYST) specimens. It is used under Emergency Use Authorization (EUA) by FDA. The limit of detection (LOD) of the assay is 125 Genome Equivalents/mL. A positive result is indicative of the presence of SARS-CoV-2 RNA. ?Clinical correlation with patient history and other diagnostic information is necessary to determine patient infection status. A negative (Not Detected) result does not preclude SARS-CoV-2 infection. In patients with clinical symptoms and other tests that are consistent with SARS-CoV-2 infection, negative results should be treated as presumptive negative and a new specimen should be tested with alternative PCR molecular test. Invalid: Please collect a new specimen for repeat patient testing if clinically indicated. Lab Interpretation Abnormal (test code = 08710-9) [facility] CenterPOCT [id number] 10:58:00 Test Item Value Reference Range Interpretation Comments POCT PREG (test code = 1605) Negative On board controls acceptable with Present C Line (test code = 3574) POCT PREG LOT # (test code = 3575) [id number] POCT PREG TEST DATE (test 04/20/2021 code = 3576) Lab Interpretation (test code = Normal 61085-0) [facility]
[2022-07-24 15:52] LABS: SARS-COV-2 RT PCR NEGATIVE (NEGATIVE)
[2022-07-24] MEDS ORDERED: dexAMETHasone 10 MG/ML VIAL ONE (16:49)
--- NOTE | 2022-07-24 17:24 | ER ---
Nurse's Notes [facility] Name: Edgard Bearden Age: 37 yrs Sex: Female : 1985 Arrival Date: 07/24/2022 Time: 13:55 Bed 9 Private MD: Diagnosis: Unspecified acute conjunctivitis, right eye;Acute tonsillitis, unspecified Presentation: 07/24 14:24 Chief complaint: Patient states: she has been having a sore throat, and redness in her ap3 right eye that both started Saturday. Patient states she believes she has strep throat. Coronavirus screen: At this time, the client does not indicate any symptoms associated with coronavirus-19. Ebola Screen: No symptoms or risks identified at this time. Initial Sepsis Screen: Does the patient meet any 2 criteria? No. Patient's initial sepsis screen is negative. Does the patient have a suspected source of infection? No. Patient's initial sepsis screen is negative. Risk Assessment: Do you want to hurt yourself or someone else? Patient reports no desire to harm self or others. Onset of symptoms was July 22, 2022. 14:24 Method Of Arrival: Ambulatory ap3 14:24 Acuity: DALE 4 ap3 Triage Assessment: 14:27 General: Appears uncomfortable, Behavior is calm, cooperative, appropriate for age. ap3 Pain: Complains of pain in throat. EENT: Reports pain when swallowing. EENT: Sclera/Cornea are reddened in outer aspect of conjuctiva of right eye and inner aspect of conjuctiva of right eye. Neuro: Level of Consciousness is awake, alert, obeys commands, Oriented to person, place, time, situation, Gait is steady, Speech is normal. Cardiovascular: Patient's skin is warm and dry. Respiratory: Airway is patent Respiratory effort is even, unlabored, Respiratory pattern is regular, symmetrical. 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 - Social history:: Smoking status: Patient denies any tobacco usage or history of. Screenin:28 [facility] ED Fall Risk Assessment (Adult) History of falling in the last 3 months, ap3 including since admission. Abuse screen: Denies threats or abuse. Nutritional screening: No deficits noted. Tuberculosis screening: No symptoms or risk factors identified. Assessment: 14:28 EENT: Throat has enlarged tonsils bilaterally. ap3 Vital Signs: 14:24 BP 136 / 74; Pulse 82; Resp 17; Temp 98.1; Pulse Ox 100% ; Weight 195.04 kg; Height 5 ap3 ft. 5 in. (165.10 cm); 14:24 Pain 10/10; ap3 17:34 BP 138 / 87; Pulse 79; Resp 15; Pulse Ox 100% ; jl7 14:24 Body Mass Index 71.56 (195.04 kg, 165.10 cm) ap3 ED Course: 13:55 Patient arrived in ED. mr 14:02 [facility]ade Faulk[facility]-C [facility] kb 14:02 Kelby Mazariegos MD is Attending Physician. kb 14:26 Triage completed. ap3 14:28 Arm band placed on right wrist. ap3 16:09 Jayjay Armstrong, JORGE is Primary Nurse. jl7 17:34 Patient has correct armband on for positive identification. jl7 17:34 No provider procedures requiring assistance completed. Patient did not have IV access jl7 during this emergency room visit. Administered Medications: 17:02 Drug: Decadron (dexamethasone) 10 mg Route: IM; Site: left deltoid; jl7 Medication: 17:34 VIS not applicable for this client. jl7 Outcome: 17:23 Discharge ordered by . kb 17:34 Discharged to home ambulatory, with family. jl7 17:34 Condition: stable 17:34 Discharge instructions given to patient, Instructed on discharge instructions, follow up and referral plans. medication usage, Demonstrated understanding of instructions, follow-up care, medications, Prescriptions given X 2. 17:35 Patient left the ED. jl7 Signatures: Sade Faulkner FNP-C FNP-Berta Casey Meg mr Jayjay Armstrong, RN RN jl7 Lisa Broderick RN RN ap3
--- NOTE | 2022-07-24 17:24 | EDPHYS ---
Physician Documentation [facility] Name: Edgard Bearden Age: 37 yrs Sex: Female : 1985 Arrival Date: 07/24/2022 Time: 13:55 Bed 9 Private MD: ED Physician Kelby Mazariegos HPI: 07/24 18:29 This 37 yrs old Female presents to ER via Ambulatory with complaints of Sore kb Throat, Redness of Eye. 18:29 The patient presents with sore throat. The patient describes throat pain as constant. kb Onset: The symptoms/episode began/occurred 2 day(s) ago. Severity of symptoms: At their worst the symptoms were moderate, in the emergency department the symptoms are unchanged. Modifying factors: The symptoms are alleviated by nothing, the symptoms are aggravated by swallowing, Patient's oral intake status: limited fluid intake, limited food intake. Associated signs and symptoms: Pertinent positives: Sore throat. The patient has not experienced similar symptoms in the past. The patient has not recently seen a physician. 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 - Social history:: Smoking status: Patient denies any tobacco usage or history of. ROS: 18:28 Constitutional: Negative for fever, chills, and weight loss. kb 18:28 Eyes: Positive for matting, redness. 18:28 ENT: Positive for sore throat. 18:28 All other systems are negative. Exam: 18:28 Constitutional: This is a well developed, well nourished patient who is awake, alert, kb and in no acute distress. Head/Face: Normocephalic, atraumatic. Cardiovascular: Regular rate and rhythm with a normal S1 and S2. No gallops, murmurs, or rubs. No pulse deficits. Respiratory: Respirations even and unlabored. No increased work of breathing. Talking in full sentences Abdomen/GI: Soft, non-tender. No distention Skin: Warm, dry with normal turgor. Normal color. MS/ Extremity: Pulses equal, no cyanosis. Neurovascular intact. Full, normal range of motion. Neuro: Awake and alert, GCS 15, oriented to person, place, time, and situation. Moves all extremities. Normal gait. Psych: Awake, alert, with orientation to person, place and time. Behavior, mood, and affect are within normal limits. 18:28 Eyes: Periorbital structures: appear normal, Pupils: equal, round, and reactive to light and accomodation, Extraocular movements: intact throughout, Conjunctiva: injected, in the right eye. 18:28 ENT: Posterior pharynx: Airway: normal, no evidence of obstruction, Tonsils: bilaterally enlarged, with erythema, Uvula: normal, midline, swelling, that is moderate, erythema, that is moderate, exudate, is not appreciated. Vital Signs: 14:24 BP 136 / 74; Pulse 82; Resp 17; Temp 98.1; Pulse Ox 100% ; Weight 195.04 kg; Height 5 ap3 ft. 5 in. (165.10 cm); 14:24 Pain 10/10; ap3 17:34 BP 138 / 87; Pulse 79; Resp 15; Pulse Ox 100% ; jl7 14:24 Body Mass Index 71.56 (195.04 kg, 165.10 cm) ap3 MDM: 14:48 Patient medically screened. kb 18:26 Data reviewed: vital signs, nurses notes. Data interpreted: Pulse oximetry: on room air kb is 100 %. Interpretation: normal. Counseling: I had a detailed discussion with the patient and/or guardian regarding: the historical points, exam findings, and any diagnostic results supporting the discharge/admit diagnosis, lab results, the need for outpatient follow up, a family practitioner, to return to the emergency department if symptoms worsen or persist or if there are any questions or concerns that arise at home. ED course: I considered the following discharge prescriptions or medication management in the emergency department: considered prescription pain medication, but pt will take otc analgesics; History obtained from: pt. 18:36 Differential diagnosis: influenza, pharyngitis, tonsillitis. kb 07/24 14:24 Order name: Strep; Complete Time: 14:55 ap3 07/24 14:24 Order name: COVID-19/FLU A+B; Complete Time: 15:55 ap3 07/24 14:51 Order name: Throat Culture EDMS Administered Medications: 17:02 Drug: Decadron (dexamethasone) 10 mg Route: IM; Site: left deltoid; jl7 Disposition Summary: 07/24/22 17:23 Discharge Ordered Location: Home kb Condition: Stable kb Diagnosis - Unspecified acute conjunctivitis, right eye kb - Acute tonsillitis, unspecified kb Followup: kb - With: Emergency Department - When: As needed - Reason: Worsening of condition Followup: kb - With: Private Physician - When: 2 - 3 days - Reason: Recheck today's complaints, Continuance of care, Re-evaluation by your physician Discharge Instructions: - Discharge Summary Sheet kb - Bacterial Conjunctivitis, Adult kb - Tonsillitis, [id number] kb Forms: - Medication Reconciliation Form kb - Thank You Letter kb - Antibiotic Education kb - Prescription Opioid Use kb Prescriptions: - Amoxicillin 875 mg Oral Tablet - take 1 tablet by ORAL route every 12 hours for 10 days; 20 tablet; Refills: 0, kb Product Selection Permitted - Cortisporin-TC 3.3-3-10-0.5 mg/mL Otic Suspension - instill 4 drops by OTIC route every 6 hours; 1 bottle; Refills: 0, Product kb Selection Permitted - Erythromycin 5 mg/gram (0.5 %) Ophthalmic Ointment - apply 1 centimeter by OPHTHALMIC route 3 times per day for 7 days; 1 tube; kb Refills: 0, Product Selection Permitted Signatures: Dispatcher [employer] Sade Greene, HALEIGH GARZA-Jayjay Gerard, RN RN jl7 Lisa Broderick RN RN ap3
[2022-07-24 18:07] VITALS: TEMP 98.1; O2SAT 100
[2022-07-24 18:13] VITALS: BP 138/87
== END 2022-07-24 17:35 | disposition home or self-care (01) ==
LOC: ER 13:49
DX: J03.90 Acute tonsillitis, unspecified (principal); H10.31 Unspecified acute conjunctivitis, right eye; Z88.1 Allergy status to other antibiotic agents; Z88.2 Allergy status to sulfonamides; Z20.822 Contact with and (suspected) exposure to COVID-19
CPT/HCPCS: 0240U; 87070; 87081; 96372; 99283; J1100

== ENCOUNTER 2022-09-29 13:59 | Emergency (ER) | payer SELFPAY ==
--- OUTSIDE RECORDS SUMMARY | 2022-09-29 14:04 | XMS REPORT | Continuity of Care Document ---
:1985 Author Organization [facility] t Address [address] [facility]. [address] [place] [address] Care Team Providers Name Role Phone Pcp, Patient Does Not Have A Primary Care Physician +[id number] LAKSHMI VICENTE Attending Clinician Unavailable Lakshmi Newman Attending Clinician Doctor Unassigned, [place] Attending Clinician Unavailable Coleen Henry Attending Clinician [...] Disease Active Univers 7-30 ity of 00:00: [address] COVID-19 COVID-19 Disease Active Unive rs virus virus 7-30 [place] [address] [place] [address] Skin Skin Disease Active Univers lesion of lesion of 9-05 ity of breast breast 00:00: [place] 00 Medical Branch Cellulitis Cellulitis Disease Active U nivers of breast of breast 9 ity of 00:00: [place] 00 Medical Branch Diabetes Diabetes Disease Active Overview: Un miquel mellitus mellitus 11-24 Formattin ity of type 2, type 2, 00:00: g of this [place] uncontroll uncontroll 00 note Me dical ed, ed, might be Branch without without different complicati complicati from the ons ons original. 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 Elevated Elevated Disease Active Unive rs blood blood 11-14 ity of pressure pressure 00:00: [place] reading reading 00 Medical without without Branch diagnosis diagnosis of of hypertensi hypertensi on on Allergies, Adverse Reactions, Alerts Allergy Allergy Status Severity Reaction(s) Onset Inactive Treating Comm ents Source Name Type Date Date Clinician Lactose Propensi Active Diarrhea 2019-0 Unive rs ty to 7-31 ity of [...] to 0-25 ity of mide adverse 00:00: [place] Antibiot reaction 00 Medica l ics) s to Branch drug Social History Social Habit Start Date Stop Date Quantity Comments Source Exposure to 2022-07-14 2022-07-24 Not sure [facility] SARS-CoV-2 00:00:00 09:47:[facility] Branch Alcohol intake 2022-07-24 2022-07-24 Current [facility] 00:00:00 00:00:00 non-drinker of [facility] alcohol (finding) Branch History [facility] Food 2020-02-18 2020-02-18 1 Univers ity of Scarcity 00:00:00 00:00:00 [place] [facility] History [facility] 2020-02-18 2020-02-18 2 University o f Transport Med 00:00:00 00:00:00 [place] Medic al Branch History [facility] 2020-02-18 2020-02-18 2 University o f Transport Non-Med 00:00:00 00:00:00 [place] M edical Branch Education 2020-02-18 2020-02-18 14 [facility] 00:00:00 00:00:00 [place] [facility] History [facility] 2020-02-18 2020-02-18 3 University o f Financial 00:00:00 00:00:00 [place] [facility] History [facility] Food 2020-02-18 2020-02-18 1 Univers ity of Worry 00:00:00 00:00:00 [facility] Tobacco use and 2014-11-11 2014-11-11 Smokeless tobacco Un iversity of exposure 00:00:00 00:00:00 non-user [facility] Sex Ass[birth year] At [birth year] Universit y of 00:00:00 00:00:00 [place] [facility] Smoking Status Start Date Stop Date Source Never smoked tobacco [facility] Medications Ordered Filled Start Stop Current Ordering Indication Dosage Frequency Signature Comments Components Source Medication Medication Date Date Medication? Clinician (SIG) Name Name lidocaine Yes [id number] Swish, U nivers 2% viscous 1-03 gargle and ity of (LIDOCAINE 00:00: spit or [place] VISCOUS) 2 00 swallow Medica l % solution 15mL q4h Branc h prn throat pain tobramycin 2022- Yes [id number] 2[drp] Place 2 Univers 0.3 % 07-24 Drops in ity of ophthalmic 00:00: 05:59 right eye [place] drops 00 :00 every 4 Medical (four) Branch hours for 7 days. Continue until you follow up with eye doctor. ergocalcife 2020-0 2020- No [id number] Take Univers rol, 02-24 50,000 ity of vitamin d2, 00:00: 04:59 Units by [place] 2,500 unit 00 :00 mouth Medical Cap weekly for Branch 4 doses. ergocalcife 2020-0 2020- No [id number] Take Univers rol, 02-24 50,000 ity of vitamin d2, 00:00: 04:59 Units by [place] 2,500 unit 00 :00 mouth Medical Cap weekly for Branch 4 doses. ergocalcife 2020-0 2020- No [id number] Take Univers rol, 02-24 50,000 ity of vitamin d2, 00:00: 04:59 Units by [place] 2,500 unit 00 :00 mouth Medical Cap weekly for Branch 4 doses. ergocalcife 2020-0 2020- No [id number] Take Univers rol, 02-24 50,000 ity of vitamin d2, 00:00: 04:59 Units by [place] 2,500 unit 00 :00 mouth Medical Cap weekly for Branch 4 doses. ergocalcife 2020-0 2020- No [id number] Take Univers rol, 02-24 50,000 ity of vitamin d2, 00:00: 04:59 Units by [place] 2,500 unit 00 :00 mouth Medical Cap weekly for Branch 4 doses. MULTIVITAMI 2020-0 Yes Take by Uni vers N ORAL 7-31 mouth. ity of 22:31: [address] Branch MULTIVITAMI 2020-0 Yes Take by Uni vers N ORAL 7-31 mouth. ity of 22:31: [address] Branch MULTIVITAMI 2020-0 Yes Take by Uni vers N ORAL 7-31 mouth. ity of 22:31: [address] Branch MULTIVITAMI 2020-0 Yes Take by Uni vers N ORAL 7-31 mouth. ity of 22:31: [place] 39 Medical Branch MULTIVITAMI 2020-0 Yes Take by Uni vers N ORAL 7-31 mouth. ity of 22:31: [address] MULTIVITAMI 2020-0 Yes Take by Uni vers N ORAL 7- mouth. ity of 22:31: [address] MULTIVITAMI 2020-0 Yes Take by Uni vers N ORAL 7- mouth. ity of 17:31: [address] MULTIVITAMI 2020-0 Yes Take by Uni vers N ORAL 7- mouth. ity of 17:31: [address] docusate 2020-0 Yes 100mg 100 mg, Unive rs (COLACE) -31 Oral, BID, ity o f capsule 100 01:00: First dose [place] mg 00 on [facility] Medical 02/18/20 at [place] 1999[facility], [facility] albuterol 2020-0 Yes [id number] 2.5mg Inhale 3 Univers 2.5 mg /3 7-31 mL every 4 ity of mL (0.083 00:00: (four) [place] %) 00 hours as Medical nebulizer needed for Bran ch solution Wheezing or Shortness of Breath. May also nebulize one extra every 6 hours. albuterol 2020-0 Yes [id number] 2.5mg Inhale 3 Univers 2.5 mg /3 7-31 mL every 4 ity of mL (0.083 00:00: (four) [place] %) 00 hours as Medical nebulizer needed for Bran ch solution Wheezing or Shortness of Breath. May also nebulize one extra every 6 hours. albuterol 2020-0 Yes [id number] 2.5mg Inhale 3 Univers 2.5 mg /3 7-31 mL every 4 ity of mL (0.083 00:00: (four) [place] %) 00 hours as Medical nebulizer needed for Bran ch solution Wheezing or Shortness of Breath. May also nebulize one extra every 6 hours. albuterol 2020-0 Yes [id number] 2.5mg Inhale 3 Univers 2.5 mg /3 7-31 mL every 4 ity of mL (0.083 00:00: (four) [place] %) 00 hours as Medical nebulizer needed for Bran ch solution Wheezing or Shortness of Breath. May also nebulize one extra every 6 hours. albuterol 2020-0 Yes [id number] 2.5mg Inhale 3 Univers 2.5 mg /3 - mL every 4 ity of mL (0.083 00:00: (four) [place] %) 00 hours as Medical nebulizer needed for Bran ch solution Wheezing or Shortness of Breath. May also nebulize one extra every 6 hours. albuterol 2020-0 Yes [id number] 2.5mg Inhale 3 Univers 2.5 mg /3 02-18 [id number] mL every 4 i ty of mL (0.083 00:00: (four) [place] %) 00 hours as Medical nebulizer needed for Bran ch solution Wheezing or Shortness of Breath. May also nebulize one extra every 6 hours. albuterol 2020-0 Yes [id number] 2.5mg Inhale 3 Univers 2.5 mg /3 02-18 [id number] mL every 4 i ty of mL (0.083 00:00: (four) [place] %) 00 hours as Medical nebulizer needed for Bran ch solution Wheezing or Shortness of Breath. May also nebulize one extra every 6 hours. albuterol 2020-0 Yes [id number] 2.5mg Inhale 3 Univers 2.5 mg /3 02-18 mL every 4 ity of mL (0.083 00:00: (four) [place] %) 00 hours as Medical nebulizer needed for Bran ch solution Wheezing or Shortness of Breath. May also nebulize one extra every 6 hours. ascorbic 2019-0 2020- No [id number] 500mg Take 1 Univers acid, 02-18 tablet by ity of vitamin C, 00:00: 04:59 mouth 3 [place] as 500 mg 00 :00 (three) Medical tablet times Branch daily for 30 days. ferrous 2019-0 2020- No [id number] 325mg Take 1 U nivers sulfate 325 02-18 tablet by it y of mg (65 mg 00:00: 04:59 mouth 3 [place] iron) 00 :00 (three) Medical tablet times Branch daily with meals for 30 days. zinc 2019-0 2020- No [id number] 220mg Take 1 Univ ers sulfate 220 02-18 capsule by i ty of (50) mg 00:00: 04:59 mouth 2 [place] capsule 00 :00 (two) Medical times Branch daily for 30 days. metFORMIN 2019-0 2020- No [id number] 500mg Take 1 Univers 500 mg -21 03-31 tablet by ity of tablet 00:00: 04:59 mouth 2 [place] 00 :00 (two) Medical times Branch daily with meals for 30 days. ascorbic 2020-0 2019- No [id number] 500mg Take 1 Univers acid, 02-18-31 tablet by ity of vitamin C, 00:00: 04:59 mouth 3 [place] as 500 mg 00 :00 (three) Medical tablet times Branch daily for 30 days. ferrous 2019-0 2019- No [id number] 325mg Take 1 U nivers sulfate 325 02-18- tablet by it y of mg (65 mg 00:00: 04:59 mouth 3 [place] iron) 00 :00 (three) Medical tablet times Branch daily with meals for 30 days. zinc 2019-2019- No [id number] 220mg Take 1 Univ ers sulfate 220 02-18- capsule by i ty of (50) mg 00:00: 04:59 mouth 2 [place] capsule 00 :00 (two) Medical times Branch daily for 30 days. metFORMIN 2019-0 2019- No [id number] 500mg Take 1 Univers 500 mg 02-18- tablet by ity of tablet 00:00: 04:59 mouth 2 [place] 00 :00 (two) Medical times Branch daily with meals for 30 days. ascorbic 2019-2019- No [id number] 500mg Take 1 Univers acid, 02-18 tablet by ity of vitamin C, 00:00: 04:59 mouth 3 [place] 500 mg 00 :00 (three) Medical tablet times Branch daily for 30 days. ferrous 2019-0 2019- No [id number] 325mg Take 1 U nivers sulfate 325 02-18 tablet by it y of mg (65 mg 00:00: 04:59 mouth 3 [place] iron) 00 :00 (three) Medical tablet times Branch daily with meals for 30 days. zinc 2020-0 2019- No [id number] 220mg Take 1 Univ ers sulfate 220 - 08-31 capsule by i ty of (50) mg 00:00: 04:59 mouth 2 [place] capsule 00 :00 (two) Medical times Branch daily for 30 days. metFORMIN 2019-0 2019- No [id number] 500mg Take 1 Univers 500 mg -31 08-31 tablet by ity of tablet 00:00: 04:59 mouth 2 [place] 00 :00 (two) Medical times Branch daily with meals for 30 days. ascorbic 2020-0 2020- No [id number] 500mg Take 1 Univers acid, 02-18- tablet by ity of vitamin C, 00:00: 04:59 mouth 3 [place] 500 mg 00 :00 (three) Medical tablet times Branch daily for 30 days. ferrous 2020-0 2020- No [id number] 325mg Take 1 U nivers sulfate 325 02-18 tablet by it y of mg (65 mg 00:00: 04:59 mouth 3 [place] iron) 00 :00 (three) Medical tablet times Branch daily with meals for 30 days. zinc 2020-0 2020- No [id number] 220mg Take 1 Univ ers sulfate 220 02-18 capsule by i ty of (50) mg 00:00: 04:59 mouth 2 [place] capsule 00 :00 (two) Medical times Branch daily for 30 days. metFORMIN 2019-0 2019- No [id number] 500mg Take 1 Univers 500 mg 02-18 tablet by ity of tablet 00:00: 04:59 mouth 2 [place] 00 :00 (two) Medical times Branch daily with meals for 30 days. ascorbic 2019-0 2019- No [id number] 500mg Take 1 Univers acid, 02-18 tablet by ity of vitamin C, 00:00: 04:59 mouth 3 [place] as 500 mg 00 :00 (three) Medical tablet times Branch daily for 30 days. ferrous 2020-0 2019- No [id number] 325mg Take 1 U nivers sulfate 325 02-18 tablet by it y of mg (65 mg 00:00: 04:59 mouth 3 [place] iron) 00 :00 (three) Medical tablet times Branch daily with meals for 30 days. zinc 2020-0 2020- No [id number] 220mg Take 1 Univ ers sulfate 220 02-18- capsule by i ty of (50) mg 00:00: 04:59 mouth 2 [place] capsule 00 :00 (two) Medical times Branch daily for 30 days. metFORMIN 2020-0 2020- No [id number] 500mg Take 1 Univers 500 mg 02-18- tablet by ity of tablet 00:00: 04:59 mouth 2 [place] 00 :00 (two) Medical times Branch daily with meals for 30 days. budesonide 2020-0 2020- No [id number] .5mg Inhale 2 Univers 0.5 mg/2 mL 02-18 08-08 mL daily ity of nebulizer 00:00: 04:59 for 7 [place] solution 00 :00 days. Medical Branch budesonide 2020-0 2020- No [id number] .5mg Inhale 2 Univers 0.5 mg/2 mL 02-18 08-08 mL daily ity of nebulizer 00:00: 04:59 for 7 [place] solution 00 :00 days. Medical Branch budesonide 2020-0 2020- No [id number] .5mg Inhale 2 Univers 0.5 mg/2 mL 02-18 08-08 mL daily ity of nebulizer 00:00: 04:59 for 7 [place] solution 00 :00 days. Medical Branch budesonide 2020-0 2020- No [id number] .5mg Inhale 2 Univers 0.5 mg/2 mL 02-18 08-08 mL daily ity of nebulizer 00:00: 04:59 for 7 [place] solution 00 :00 days. Medical Branch dexAMETHaso 2019-0 2020- No [id number] 4mg Take 1 Univers ne 4 mg 02-18 tablet by ity of tablet 00:00: 00:00 mouth [place] 00 :00 daily for Medical 5 days. Branch iohexol 2020- No 140mL 140 mL, Unive rs (OMNIPAQUE 02-17 07-30 Intravenou it y of 350 22:30: 22:00 s, ONCE, 1 [place] BULK-150 00 :00 dose, [place] Medica l mL) 02/18/20 at Branch injection 1730, 140 mL Routine ferrous 2019-0 Yes 325mg 325 mg, Univer s sulfate 7-30 Oral, TID ity of tablet 325 22:00: MEALS, [place] mg 00 First dose Medical on [facility] 02/18/20 at 1700, Until Discontinu ed, Routine NaCl 0.9% 0 Yes 10mL 10 mL, Univer s (NS) 7-30 Slow IV ity of injection 17:15: Push, PRN, [place] 10 mL 27 Starting Medical [facility] 02/18/20 at 1215, Until Discontinu ed, Routine, line maintenanc e lidocaine 2020-0 Yes 5mL 5 mL, Univers 1% (PF) 02-17 Subcutaneo ity of (XYLOCAINE) 17:15: us, PRN, [place] injection 5 27 Starting Medi suly mL [place] Branch 02/18/20 at 1215, Until Discontinu ed, Routine, Local anesthesia Sliding 2019-0 Yes Subcutaneo Univ ers Scale 7-30 us, TID ity of Insulin - 17:00: [...] at IV 0930, Last piggyback dose on Tu02/23/20 at 0930, 250 mL
Reas on for Anti-Infec tive: Empiric Therapy for Suspected Infection< br>Empiric Therapy Site: Respirator y
Durat ion of therapy: 7 days cefTRIAXone 2019- No 1000mg 1,000 mg, Univers (ROCEPHIN) 02-17 [...] Until Discontinu ed, Routine ergocalcife 2020-0 Yes [id number] 50,000 Un miquel rol 7-30 Units, ity of (vitamin 14:00: Oral, [place] d2) 00 QWEEKLY, Medical (CALCIFEROL First dose Br anch ) capsule on [place] 50,000 02/18/20 at Units 0900, Until Discontinu ed, Routine lactobacill 2020-0 Yes 1{tbl} 1 tablet, Univers us 7-30 Oral, BID, ity of acidophilus 13:30: First dose [place] (ACIDOPHILL 00 on [facility] Medica l US) 25 02/18/20 at Branch million 0830, cell -100 Until mg captab 1 Discontinu tablet ed, Routine ascorbic 2020-0 Yes 500mg 500 mg, Unive rs acid 7-30 Oral, TID, ity of (vitamin C) 13:30: First dose [place] (VITAMIN C) 00 on [facility] Medica l tablet 500 02/18/20 at [facility] mg 0830, Until Discontinu ed, Routine zinc 2020-0 Yes 220mg 220 mg, Univers sulfate 7-30 Oral, BID, ity of (ORAZINC) 13:30: First dose [place] capsule 220 00 on [facility] Medica l mg 02/18/20 at Branch 0830, Until Discontinu ed, Routine enoxaparin 2020-0 Yes 40mg 40 mg, Unive rs (LOVENOX) 7-30 Subcutaneo ity of injection 13:30: us, Q12H, [place] as 40 mg 00 First dose Medical on [facility] Branch 02/18/20 at 0830, Until Discontinu ed, Routine ondansetron 2020-0 Yes 4mg 4 mg, Slow Univers (ZOFRAN 730 IV Push, ity of (PF)) 13:14: Q6HPRN, [place] injection 4 14 Starting Medi suly mg [facility] Branch 02/18/20 at 0814, Until Discontinu ed, Routine, [...] or has mental status changes. butalbital Yes [id number] 1{tbl} Take 1 Univers acetaminoph 5-24 tablet by ity of en-caff 00:00: mouth [place] 50-325-40 00 every 4 Medical mg tablet (four) Branch hours as needed for Headache. butalbital Yes [id number] 1{tbl} Take 1 Univers acetaminoph 5-24 tablet by ity of en-caff 00:00: mouth [place] 50-325-40 00 every 4 Medical mg tablet (four) Branch hours as needed for Headache. butalbital Yes [id number] 1{tbl} Take 1 Univers acetaminoph 5-24 tablet by ity of en-caff 00:00: mouth [place] 50-325-40 00 every 4 Medical mg tablet (four) Branch hours as needed for Headache. butalbital Yes [id number] 1{tbl} Take 1 Univers acetaminoph 5-24 tablet by ity of en-caff 00:00: mouth [place] 50-325-40 00 every 4 Medical mg tablet (four) Branch hours as needed for Headache. butalbital Yes [id number] 1{tbl} Take 1 Univers acetaminoph 5-24 tablet by ity of en-caff 00:00: mouth [place] 50-325-40 00 every 4 Medical mg tablet (four) Branch hours as needed for Headache. butalbital Yes [id number] 1{tbl} Take 1 Univers acetaminoph 5-24 tablet by ity of en-caff 00:00: mouth [place] 50-325-40 00 every 4 Medical mg tablet (four) Branch hours as needed for Headache. butalbital Yes [id number] 1{tbl} Take 1 Univers acetaminoph 5-24 tablet by ity of en-caff 00:00: mouth [place] 50-325-40 00 every 4 Medical mg tablet (four) Branch hours as needed for Headache. butalbital- 2019-0 Yes [id number] 1{tbl} Take 1 Univers acetaminoph 5-24 tablet by ity of en-caff 00:00: mouth [place] 50-325-40 00 every 4 Medical mg tablet (four) Branch hours as needed for Headache. ondansetron 2019-0 Yes [id number] 4mg Take 1 Univers (ZOFRAN 3-04 tablet by ity of ODT) 4 mg 00:00: mouth [place] disintegrat 00 every 8 Medic al ing tablet (eight) Branch hours as needed for Nausea and Vomiting (N/V). ondansetron 2018-0 Yes [id number] 4mg Take 1 Univers (ZOFRAN 3-04 tablet by ity of ODT) 4 mg 00:00: mouth [place] disintegrat 00 every 8 Medic al ing tablet (eight) Branch hours as needed for Nausea and Vomiting (N/V). ondansetron Yes [id number] 4mg Take 1 Univers (ZOFRAN 3-04 tablet by ity of ODT) 4 mg 00:00: mouth [place] disintegrat 00 every 8 Medic al ing tablet (eight) Branch hours as needed for Nausea and Vomiting (N/V). ondansetron 2018-0 Yes [id number] 4mg Take 1 Univers (ZOFRAN 3-04 tablet by ity of ODT) 4 mg 00:00: mouth [place] disintegrat 00 every 8 Medic al ing tablet (eight) Branch hours as needed for Nausea and Vomiting (N/V). ondansetron 2019-0 Yes [id number] 4mg Take 1 Univers (ZOFRAN 3-04 tablet by ity of ODT) 4 mg 00:00: mouth [place] disintegrat 00 every 8 Medic al ing tablet (eight) Branch hours as needed for Nausea and Vomiting (N/V). ondansetron 2019-0 Yes [id number] 4mg Take 1 Univers (ZOFRAN 3-04 tablet by ity of ODT) 4 mg 00:00: mouth [place] disintegrat 00 every 8 Medic al ing tablet (eight) Branch hours as needed for Nausea and Vomiting (N/V). ondansetron 2018-0 Yes [id number] 4mg Take 1 Univers (ZOFRAN 3-04 tablet by ity of ODT) 4 mg 00:00: mouth [place] disintegrat 00 every 8 Medic al ing tablet (eight) Branch hours as needed for Nausea and Vomiting (N/V). ondansetron Yes [id number] 4mg Take 1 Univers (ZOFRAN 3-04 tablet [...] Branch daily as needed for Cough. benzonatate 0 Yes 100mg Take 1 Uni vers (TESSALON 8-29 capsule by ity of PERLEvocalize) 100 00:00: mouth 3 [place] mg capsule 00 (three) Medica l times Branch daily as needed for Cough. benzonatate 2016-0 Yes 100mg Take 1 Uni vers (TESSALON 8-29 capsule by ity of PERLEvocalize) 100 00:00: mouth 3 [place] mg capsule 00 (three) Medica l times Branch daily as needed for Cough. benzonatate 2016-0 Yes 100mg Take 1 Uni vers (TESSALON 8-29 capsule by ity of PERLEvocalize) 100 00:00: mouth 3 [place] mg capsule 00 (three) Medica l times Branch daily as needed for Cough. benzonatate 2016-0 Yes 100mg Take 1 Uni vers (TESSALON 8-29 capsule by ity of PERLEvocalize) 100 00:00: mouth 3 [place] mg capsule 00 (three) Medica l times Branch daily as needed for Cough. benzonatate 2016-0 Yes 100mg Take 1 Uni vers (TESSALON 8-29 capsule by ity of PERLEvocalize) 100 00:00: mouth 3 [place] mg capsule 00 (three) Medica l times Branch daily as needed for Cough. benzonatate 2016-0 Yes 100mg Take 1 Uni vers (TESSALON 8-29 capsule by ity of PERLEvocalize) 100 00:00: mouth 3 [place] mg capsule 00 (three) Medica l times Branch daily as needed for Cough. benzonatate 2016-0 Yes 100mg Take 1 Uni vers (TESSALON 8-29 capsule by ity of PERLEvocalize) 100 00:00: mouth 3 [place] as mg [...] No 1 tab PO Un miquel (DELTASONE) 03-19- BID x 4 ity of 20 mg 00:00: 00:00 days [place] tablet 00 :00 Medical Branch Immunizations Ordered Filled Immunization Date Status Comments [facility] e Immunization Name Name Pneumococcal 2015-01-17 [...] 2015-01-17 Completed University o f Polysaccharide, 00:00:00 [place] Med ical PPSV23 (PNEUMOVAX) Branch TDAP 2014-11-11 Completed University of 00:00:00 [facility] TDAP 2014-11-11 Completed University of 00:00:00 [place] [facility] TDAP 2014-11-11 Completed University of 00:00:00 [facility] TDAP 2014-11-11 Completed University of 00:00:00 [facility] TDAP 2014-11-11 Completed University of 00:00:00 [facility] TDAP 2014-11-11 Completed University of 00:00:00 [facility] TDAP 2014-11-11 Completed University of 00:00:00 [facility] TDAP 2014-11-11 Completed University of 00:00:00 [facility] Vital Signs Vital Name Observation Time Observation Value Comments Source Systolic blood 2022-07-24 18:21:00 162 mm[Hg] Univer sity of pressure [facility] Diastolic blood 2022-07-24 18:21:00 98 mm[Hg] Unive rsity of pressure [facility] Heart rate 2022-07-24 18:21:00 75 /min Universi ty of [place] [facility] Respiratory rate 2022-07-24 18:21:00 20 /min Univ ersity of [place] [facility] Oxygen saturation in 2022-07-24 18:21:00 97 /min University of Arterial blood by [place] [facility]Peer (Qlipso) suly Pulse oximetry Branch Body temperature 2022-07-24 15:47:00 36.72 Lauren Univ ersity of [place] [facility] Body height 2022-07-24 15:47:00 165.1 cm Universi ty of [place] [facility] Body weight 2022-07-24 15:47:00 195.047 kg [facility] [place] [facility] BMI 2022-07-24 15:47:00 71.56 kg/m2 [facility] ty [facility] [place] [facility] Systolic blood 2020-02-19 18:46:00 170 mm[Hg] Univer sity of pressure [place] [facility] Diastolic blood 2020-02-19 18:46:00 83 mm[Hg] Unive rsity of pressure [place] [facility] Heart rate 2020-02-19 18:46:00 58 /min Universi ty of [place] [facility] Respiratory rate 2020-02-19 18:46:00 17 /min Univ ersity of [place] [facility] Oxygen saturation in 2020-02-19 18:46:00 95 /min University of Arterial blood by [place] [employer] ([place]) suly Pulse oximetry Branch Body temperature 2020-02-19 17:00:00 36.22 Lauren Univ ersity of [place] [facility] Body height 2020-02-18 15:14:00 165.1 cm Universi ty of [place] [facility] Body weight 2020-02-18 10:41:00 215.459 kg [facility] [place] [facility] BMI 2020-02-18 10:41:00 79.04 kg/m2 [facility] [place] [facility] Systolic blood 2020-02-19 18:46:00 170 mm[Hg] Univer sity of pressure [place] [facility] Diastolic blood 2020-02-19 18:46:00 83 mm[Hg] Unive rsity of pressure [place] [facility] Heart rate 2020-02-19 18:46:00 58 /min Universi ty of [place] [facility] Respiratory rate 2020-02-19 18:46:00 17 /min Univ ersity of [place] [facility] Oxygen saturation in 2020-02-19 18:46:00 95 /min University of Arterial blood by [place] [employer] (Q[place]so) suly Pulse oximetry Branch Body temperature 2020-02-19 17:00:00 36.22 [facility] - [facility] Body height 2020-02-18 15:14:00 165.1 cm [facility] Body weight 2020-02-18 10:41:00 215.459 kg [facility] BMI 2020-02-18 10:41:00 79.04 kg/m2 [facility] Procedures Procedure Date / Time Performing Clinician Source Performed RAPID STREP SCREEN FOR 2022-07-24 16:47:00 Lakshmi [facility] A [facility] CONSENT/REFUSAL FOR 2022-07-24 15:42:25 Doctor Unassigned, No Un [facility] DIAGNOSIS AND TREATMENT Name [facility] POCT GLUCOSE (AUTOMATED) 2020-02-19 17:15:00 [facility]on [facility] POCT GLUCOSE (AUTOMATED) 2020-02-19 13:11:00 Jadon [facility] PHOSPHORUS 2020-02-19 10:44:00 Gila la [facility] MAGNESIUM 2020-02-19 10:44:00 Gila [facility] COMP. METABOLIC PANEL 2020-02-19 10:44:[address] [facility] ([id number]) [facility] CBC WITH DIFF 2020-02-19 10:44:00 Gila [facility] N-TERMINAL PRO-BNP 2020-02-19 10:44:00 Gila la [facility] POCT GLUCOSE (AUTOMATED) 2020-02-19 00:42:00 Jadon [facility] POCT GLUCOSE (AUTOMATED) 2020-02-18 23:04:00 J[facility]on [facility] CT CHEST PULMONARY 2020-02-18 22:10:00 Jadon Ascencio [facility] ANGIOGRAM [facility] POCT GLUCOSE (AUTOMATED) 2020-02-18 17:53:00 Jadon [facility] VITAMIN B12, LEVEL 2020-02-18 14:10:00 Gila la [facility] C-REACTIVE PROTEIN 2020-02-18 14:10:00 Gila la [facility] IRON PANEL 2020-02-18 14:10:00 Gila [facility] PROTHROMBIN TIME / INR 2020-02-18 14:10:00 Gila la [facility] D-DIMER 2020-02-18 14:10:00 Gila [facility] N-TERMINAL PRO-BNP 2020-02-18 14:10:00 Gila [facility] VITAMIN D, 25-OH 2020-02-18 14:10:00 Gila [facility] PROCALCITONIN 2020-02-18 14:10:00 Gila [facility] PHOSPHORUS 2020-02-18 14:08:00 Gila [facility] MAGNESIUM 2020-02-18 14:08:00 Gila [facility] FERRITIN SERUM 2020-02-18 14:08:00 Gila [facility] THYROID STIMULATING 2020-02-18 14:08:00 Gila la [facility] HORMONE [facility] LIPID PANEL 2020-02-18 14:08:00 Gila [facility] ([id number])(TOTAL [facility] CHOLESTEROL, TRIGLYCERIDES, HDL) ACUTE CARE VENOUS BLOOD 2020-02-18 14:08:00 Gila la [facility] G[facility] SEDIMENTATION RATE 2020-02-18 14:08:00 Gila [facility] GLYCOSYLATED HEMOGLOBIN 2020-02-18 14:08:00 Gila [facility] (A1C) [facility] XR CHEST 1 VW 2020-02-18 11:19:28 Juan Mccarthy [facility] LIPASE 2020-02-18 11:08:00 Juan Mccarthy [facility] TROPONIN I 2020-02-18 11:08:00 Juan Mccarthy [facility] COMP. METABOLIC PANEL 2020-02-18 11:08:00 [facility] ([id number]) [facility] CBC WITH DIFF 2020-02-18 11:08:00 Juan Mccarthy [facility] N-TERMINAL PRO-BNP 2020-02-18 11:08:00 [facility] COVID-19 (ID NOW RAPID 2020-02-18 11:01:00 Juan Mccarthy [facility] TESTING) [facility] POCT TEST 2020-02-18 10:58:00 Juan Mccarthy [facility] EKG-12 LEAD 2020-02-18 10:47:05 Juan Mccarthy [facility] EKG-12 LEAD 2020-02-18 10:39:34 Juan Mccarthy [facility] ASSIGNMENT OF BENEFITS 2020-02-18 10:24:53 Doctor Unassigned, No [facility] NOTICE OF PRIVACY 2020-02-18 10:24:19 Doctor Unassigned, No [facility] CONSENT/REFUSAL FOR 2020-02-18 10:24:01 Doctor Unassigned, No [facility] DIAGNOSIS AND TREATMENT [facility] Encounters Start End Encounter Admission Attending Care Care Encounter Source Date/Time Date/Time Type Type Clinicians Facility Department ID 2022-07-24 2022-07-24 Emergency X JULES [facility] ERT [id number] Univers 09:48:00 12:45:00 LAKSHMI [facility] 2022-07-24 2022-07-24 Emergency Jules [facility] [id number] Univers 09:48:00 12:45:00 Lakshmi GROSS 350.1.13.10 i ty [facility] 4.2.7.2.686 [facility] [id number] [facility] [address] 2022-07-24 2022-07-24 Orders Doctor BRENNAN 1.2.840.114 [id number] Univers 00:00:00 00:00:00 Only UnassignedLOAGN 350.1.13.10 it[place] [facility] 4.2.7.2.686 [facility] [phone] [facility] [address] 2020-03-22 2020-03-22 Patient CarlKarine cassidybhupendra 1.2.840.114 [id number] 00:00:00 00:00:00 Outreach Coleen E Deleon 350.1.13.10 [place] 4.2.7.2.686 [phone] [facility] 2020-03-22 2020-03-22 Patient Ely [place] 1.2.840.114 [id number] Univers 00:00:00 00:00:00 Outreach Coleen E Deleon 350.1.13.10 i [id number] [address] 2020-03-08 2020-03-08 Patient Meg Hilariobhupendra 1.2.840.114 [id number] 00:00:00 00:00:00 Outreach E Deleon 350.1.13.10 [place] 4.2.7.2.686 [id number] [facility] 2020-03-08 2020-03-08 Patient Meg Hilario [place] 1.2.840.114 [id number] Univers 00:00:00 00:00:00 Outreach E Deleon 350.1.13.10 i [place] [id number] [address] 2020-02-23 2020-02-23 Patient CarlWellington cassidy 1.2.840.114 [id number] 00:00:00 00:00:00 Outreach Coleen E Deleon 350.1.13.10 [place] 4.2.7.2.686 [id number] [facility] 2020-02-23 2020-02-23 Patient Wellington Henry 1.2.840.114 [id number] [facility] 00:00:00 00:00:00 Outreach Coleen E Deleon 350.1.13.10 i [id number] [address] 2020-02-22 2020-02-22 Transition Wellington Webster 1.2.840.114 [id number] 00:00:00 00:00:00 of Care Annia Deleon 350.1.13.10 [place] 4.2.7.2.686 [id number] [facility] 2020-02-22 2020-02-22 Transition Wellington [place] 1.2.840.114 [id number] 00:00:00 00:00:00 of Care Annia Deleon 350.1.13.10 [place] 4.2.7.2.686 [phone] [facility] 2020-02-22 2020-02-22 Transition Wellington [place] 1.2.840.114 [id number] Univers 00:00:00 00:00:00 of Care Annia Deleon 350.1.13.10 [phone] [address] [address] 2020-02-22 2020-02-22 Transition Wellington Webster 1.2.840.114 [id number] Univers 00:00:00 00:00:00 of Care Annia Deleon 350.1.13.10 it[place] [id number] [address] 2020-02-18 2020-02-19 [facility] 1.2.840. 114 [id number] Univers 05:27:00 16:00:00 Encounter Jadon Ascencio 350.1.13.10 ity of [place] 4.2.7.2.686 [facility] [id number] [address] 2020-02-18 2020-02-19 [facility] 1.2.840. 114 [id number] 05:27:00 16:00:00 Encounter Jadon Ascencio 350.1.13.10 [place] 4.2.7.2.686 [place] [phone] [facility] 2020-02-18 2020-02-18 Emergency X [facility] ERT [id number] Univers 05:27:00 05:27:00 [facility] Results Test Description Test Time Test Comments Results Result Comments Source POCT GLUCOSE (AUTOMATED) 2020-02-19 18:40:00 Test Item Value Reference Range Interpretation Comme nts POCT GLU (test code = 4927315236) 217 mg/dL 70-110 H Lab Interpretation (test code = 05450-8) [facility] 15:40:00 Test Item Value Reference Range Interpretation Comments POCT GLU (test code = 4057934480) 161 mg/dL 70-110 H Lab Interpretation (test code = Abnormal 10235-3) [facility] WITH [id number] 14:16:00 Test Item Value Reference Range Interpretation [...] RDW-SD (test code = 40.8 fL 39-49.9 23831-8) RDW-CV (test code = 13.6 % 12-15.5 788-0) PLT (test code = See_Comment H [Automated 777-3) message] The sy stem which generated this result transmitted reference range : 166 - 358 10*3/ ?L. The reference r rosibel was not used to interpret this result as normal/abnormal . MPV (test code = 10.1 fL 9.5-12.9 12489-6) NRBC/100 WBC (test See_Comment [Automat ed code = 7814638667) message] The system which generated this result transmitted reference range : 0.0 - 10.0 /100 WBCs. The refer ence range was not u sed to interpret th is result as normal/abnormal . NRBC x10^3 (test code See_Comment [Auto mated = 0133965927) message] The s ystem which generated this result transmitted reference range : 10*3/?L. The reference range was not used to interpret this result as normal/abnormal . GRAN MAT (NEUT) % 70.8 % (test code = 770-8) IMM GRAN % (test code 2.10 % = 4981809969) LYMPH % (test code = 19.3 % 736-9) MONO % (test code = 7.3 % 5905-5) EOS % (test code = 0.2 % 713-8) BASO % (test code = 0.3 % 706-2) GRAN MAT x10^3(ANC) 6.84 10*3/uL 1.88-7.09 (test code = 3291599426) IMM GRAN x10^3 (test 0.20 10*3/uL 0-0.06 H code = 4967962368) LYMPH x10^3 (test code 1.86 10*3/uL 1.32-3.29 [...] . Lab Interpretation Abnormal (test code = 49276-3) [facility] [id number] 14:15:00 Test Item Value Reference Range Interpretation Comments CRP (test code = 1657962501) 5.4 mg/dL <0.8 H Lab Interpretation (test code = Abnormal 52454-3) [facility] [id number] 11:53:00 Test Item Value Reference Range Interpretation Comments NT-proBNP (test code 221 pg/mL See_Comment H [Autom ated = 4251515238) message] The system which generated this result transmitted reference range : <=125. The reference range was not used to interpret this result as normal/abnormal . DEANNA (test code = DEANNA) Biotin has been reported to cause a negative bias, interpret results relative to patient's use of biotin. Lab Interpretation Abnormal (test code = 92823-6) [facility]. METABOLIC PANEL (11550)2020-02-19 11:46:00 Test Item Value Reference Range Interpretation Comments NA (test code = 139 mmol/L 135-145 4952337140) K (test code = 4.0 mmol/L 3.5-5 0310677071) CL (test code = 106 mmol/L 98-108 7709203509) CO2 TOTAL (test code = 26 mmol/L 23-31 9206201970) AGAP (test code = 2-16 7243134239) BUN (test code = 10 mg/dL 7-23 5664153324) GLUCOSE (test code = 174 mg/dL 70-110 H 5335176966) CREATININE (test code = 0.56 mg/dL 0.5-1.04 5842739177) TOTAL BILI (test code = 0.3 mg/dL 0.1-1.5 7289776870) CALCIUM (test code = 9.0 mg/dL 8.6-10.6 7757831833) T PROTEIN (test code = 7.9 g/dL 6.3-8.2 4185209882) ALBUMIN (test code = 3.8 g/dL 3.5-5 4639230118) ALK PHOS (test code = 88 U/L 34-122 9228129705) ALTv (test code = 33 U/L 5-35 1742-6) AST(SGOT) (test code = 34 U/L 13-40 8124987425) eGFR Calculation mL/min/1.73m2 (Non-) (test code = 1116403995) eGFR Calculation mL/min/1.73m2 () (test code = 9202308559) DEANNA (test code = DEANNA) Association of [...] tests). Lab Interpretation Abnormal (test code = 35453-8) [facility]2020-07-31 11:46:00 Test Item Value Reference Range Interpretation Comments MAGNESIUM (test code = 2026638245) 2.6 mg/dL 1.7-2.4 H Lab Interpretation (test code = Abnormal 29289-6) [facility]OS[facility]US2020-07-31 11:45:00 Test Item Value Reference Range Interpretation Comments PHOSPHORUS (test code = 2136389936) 3.9 mg/dL 2.5-5 Lab Interpretation (test code = Normal 91186-4) [facility] D, [id number] 01:00:00 Test Item Value Reference Range Interpretation Comments VIT D 25OH (test code = <13 25-80 L 13169-6) DEANNA (test code = DEANNA) Deficiency: <20 ng/mLInsufficiency: 20-24 ng/mLOptimal: 25-80 ng/mL Lab Interpretation (test Abnormal code = 29250-6) [facility]2020-02-19 00:53:00 Test Item Value Reference Range Interpretation Comments POCT GLU (test code = 8194496032) 250 mg/dL 70-110 H Lab Interpretation (test code = Abnormal 68448-5) [facility] Hospital[facility]OWI GLUCOSE (AUTOMATED)2020-02-19 00:35:00 Test Item Value Reference Range Interpretation Comments POCT GLU (test code = 8202502190) 226 mg/dL 70-110 H Lab Interpretation (test code = Abnormal 42754-6) [facility] CHEST PULMONARY [id number] 23:19:04Limited exam due to patient body habitus, [...] Preliminary Report Dictated by Resident: Sohail Thompson MD., have reviewed this study and agree [...] and splenomegaly. Preliminary Report Dictated by Resident: Cooper Corona, Sohail Zarate MD., have reviewed this study and agree with theabove report.[facility]AL[facility]IN 2020-02-18 22:20:00 Test Item Value Reference Range Interpretation Comments Procalcitonin (test 0.03 ng/mL <0.07 code = 8403604114) DEANNA (test code = DEANNA) INTERPRETATION OF [...] lung abscess/empyema. For further information please refer to:[email or web address] Lab Interpretation Normal (test code = 95481-4) [facility] B12, [id number] 22:11:00 Test Item Value Reference Range Interpretation Comments VIT B12 (test code = >1000 240-930 H 2648290879) DEANNA (test code = DEANNA) Biotin has been reported to cause a positive bias, interpret results relative to patient's use of biotin. Lab Interpretation (test Abnormal code = 98388-2) [facility])2020-02-18 17:59:00 Test Item Value Reference Range Interpretation Comments POCT GLU (test code = 4936688785) 209 mg/dL 70-110 H Lab Interpretation (test code = Abnormal 59460-7) [facility] HospitalSEDIMENTATION [id number] 16:08:00 Test Item Value Reference Range Interpretation Comments ESR (test code = See_Comment [Automated message] 8845773268) The system Trapit generated this result transmitted ref erence range: 0 - 20 m m/HR. The reference r rosibel was not used to interpret this result as normal/abnor mal. Lab Interpretation (test Normal code = 08316-5) [facility] HospitalFERRITIN [id number] 15:22:00 Test Item Value Reference Range Interpretation Comments FERRITIN (test code = 51.5 ng/mL 6-137 3956142965) DEANNA (test code = DEANNA) Biotin has been reported to cause a negative bias, interpret results relative to patient's use of biotin. Lab Interpretation (test Normal code = 55028-0) [facility] HospitalIRON [id number] 15:22:00 Test Item Value Reference Range Interpretation Comments IRON (test code = 1085336421) 30 ug/dL 50-160 L TIBC (test code = 6273967518) 357 ug/dL 250-410 % FE SAT (test code = 5551029741) 8 % 20-50 L Lab Interpretation (test code = Abnormal 42815-0) [facility]MINAL [id number] 15:21:00 Test Item Value Reference Range Interpretation Comments NT-proBNP (test code 44 pg/mL See_Comment [Autom ated = 9710865988) message] The system which generated this result transmitted reference range : <=125. The reference range was not used to interpret this result as normal/abnormal . DEANNA (test code = DEANNA) Biotin has been reported to cause a negative bias, interpret results relative to patient's use of biotin. Lab Interpretation Normal (test code = 05821-6) [facility] HospitalTHYROID STIMULATING [id number] 15:18:00 Test Item Value Reference Range Interpretation Comments TSH (test code = See_Comment [Automated message] 5208702486) The system Trapit generated this result transmitted ref erence range: 0.45 - 4 .70 mIU/L. The refe rence range was not u sed to interpret this result as normal/abnor mal. Lab Interpretation (test Normal code = 14688-0) [facility] HospitalD-[id number] 15:03:00 Test Item Value Reference Interpretation Comments Range D-DIMER (test code = See_Comment H [Autom ated 2274334191) message] The system which generated this result [...] diagnosis. Lab Interpretation Abnormal (test code = 76819-6) [facility] HospitalPROTHROMBIN TIME / [id number] 14:59:00 Test Item Value Reference Range Interpretation Comments PROTIME PATIENT (test See_Comment [Auto mated message] code = 5964-2) The system Operax generated this result transmitted ref erence range: 12.0 - 1 4.7 Seconds. The re ference range was not u sed to interpret this result as normal/abnor mal. INR (test code = 6301-6) Nor mal INR <1.1; Warfarin Therap eutic range 2.0 to 3. 0 or 2.5 to 3.5, dep ending upon the indica tions. Lab Interpretation (test Normal code = 49310-6) [facility] HospitalGlycosylated Hemoglobin (A1C)2020-02-18 14:53:00 Test Item Value Reference Range Interpretation Comments HGB A1C (test code = 10.0 % 4-6 H 4548-4) DEANNA (test code = DEANNA) %A1C (NGSP) Interpretation (ADA)4.8-5.6 ? ? Normal or (Non-Diabetic Range)5.7-6.4 ? ? Increased Risk (Pre-Diabetic)>6.5 ?Diabetes Indicated Lab Interpretation Abnormal (test code = 90785-4) [facility] HospitalLipid Panel (Total Cholesterol, Triglycerides, HDL) - [id number] 14:46:00 Test Item Value Reference Range Interpretation Comments CHOL (test code = 103 mg/dL 120-200 L 1819010047) HDL (test code = 12 mg/dL >50 L 3590036108) HDLC RATIO (test code = See_Comment H [Au tomated message] 5532731078) The system Trapit generated this result transmit dee dee reference range : <=4.5. The refe rence range was not u sed to interpret th is result as normal/abnormal . TRIG (test code = 214 mg/dL 30-170 H 2573489019) LDL CHOL (test code = 48 mg/dL See_Comment [Auto mated message] 05763-3) The system Trapit generated this result transmit dee dee reference range : <=160. The refe rence range was not u sed to interpret th is result as normal/abnormal . VLDL (test code = 43 mg/dL 5-60 1726119934) Lab Interpretation (test Abnormal code = 60631-1) [facility]MAGNESIUM2020-07-30 14:46:00 Test Item Value Reference Range Interpretation Comments MAGNESIUM (test code = 5883331024) 2.4 mg/dL 1.7-2.4 Lab Interpretation (test code = Normal 18889-2) [facility]PHOSPHORUS2020-07-30 14:46:00 Test Item Value Reference Range Interpretation Comments PHOSPHORUS (test code = 0211291462) 3.7 mg/dL 2.5-5 Lab Interpretation (test code = Normal 92336-9) [facility] VENOUS BLOOD [id number] 14:29:00 Test Item Value Reference Range Interpretation Comments PH (test code = 7.32-7.42 4204338791) PCO2 ANURAG (test code = See_Comment [Auto mated message] The 1707581110) system which ge nerated this result transmit dee dee reference range : 41 - 51 mmHg. The refer ence range was not used to interpret this result as normal/abnormal . PO2 ANURAG (test code = See_Comment [Autom ated message] The 5608436155) system which ge nerated this result transmit dee dee reference range : 25 - 40 mmHg. The refer ence range was not used to interpret this result as normal/abnormal . HCO3 ANURAG (test code = See_Comment [Auto mated message] The 0425717153) system which ge nerated this result transmit dee dee reference range : 24 - 28 mEq/L. The refe rence range was not used to interpret this result as normal/abnormal . AC VBE(BEAKER) (test mEq/L code = 2024439434) [facility] HospitalXR CHEST 1 [id number] 12:21:34EXAM: XR CHEST 1 VW CLINICAL INDICATION: chest pain COMPARISON: 03/19/2016 TECHNIQUE: Frontal and lateral views of the chest were obtained. FINDINGS: Bilateral patchy airspace opacities are present concerning for an atypicalinfectious process including COVID 19 pneumonia. No pleural effusion orpneumothorax. The cardiac silhouette is at the upper limit of normal in size. No acute osseous abnormality. Preliminary Report Dictated by Resident: Bony Garrido MD., have reviewed thisstudy and agree with theabove report.[facility], Radiant Results Inft User - 02/18/2020 7:22 [...] reviewed this study and agree with theabove report.[facility] WITH [id number] 11:50:00 Test Item Value Reference Range Interpretation [...] RDW-SD (test code = 41.4 fL 39-49.9 73535-0) RDW-CV (test code = 13.9 % 12-15.5 788-0) PLT (test code = See_Comment L [Automated 777-3) message] The sy stem which generated this result transmitted reference range : 166 - 358 10*3/ ?L. The reference r rosibel was not used to interpret this result as normal/abnormal . MPV (test code = 11.7 fL 9.5-12.9 55736-4) IPF % (test code = 11.2 % 1.3-7.7 H Platelet count 1739190291) measured by fluorescence method. NRBC/100 WBC (test See_Comment [Automat ed code = 9433249325) message] The system which generated this result transmitted reference range : 0.0 - 10.0 /100 WBCs. The refer ence range was not u sed to interpret th is result as normal/abnormal . NRBC x10^3 (test code See_Comment [Auto mated = 3430203283) message] The s [employer] which generated this result transmitted reference range : 10*3/?L. The reference range was not used to interpret this result as normal/abnormal . GRAN MAT (NEUT) % 63.6 % (test code = 770-8) IMM GRAN % (test code 1.50 % = 2926632237) LYMPH % (test code = 28.2 % 736-9) MONO % (test code = 5.4 % 5905-5) EOS % (test code = 1.0 % 713-8) BASO % (test code = 0.3 % 706-2) GRAN MAT x10^3(ANC) 3.85 10*3/uL 1.88-7.09 (test code = 0475192915) IMM GRAN x10^3 (test 0.09 10*3/uL 0-0.06 H code = 0389534062) LYMPH x10^3 (test code 1.71 10*3/uL 1.32-3.29 = 731-0) MONO x10^3 (test code 0.33 10*3/uL 0.33-0.92 = 742-7) EOS x10^3 (test code = 0.06 10*3/uL 0.03-0.39 711-2) BASO x10^3 (test code <0.03 0.01-0.07 = 704-7) PLT ESTIMATE (test Decreased Normal A code = 9317-9) Lab Interpretation Abnormal (test code = 00220-9) [facility] [id number] 11:40:00 Test Item Value Reference Range Interpretation Comments TROPONIN I (test <0.012 See_Comment [Automated code = 7740021367) message] The system which generated this result [...] ? Lab Interpretation Normal (test code = 53111-2) [facility]AL [id number] 11:37:00 Test Item Value Reference Range Interpretation Comments NT-proBNP (test code 40 pg/mL See_Comment [Autom ated = 2073058659) message] The system which generated this result transmitted reference range : <=125. The reference range was not used to interpret this result as normal/abnormal . DEANNA (test code = DEANNA) Biotin has been reported to cause a negative bias, interpret results relative to patient's use of biotin. Lab Interpretation Normal (test code = 19315-9) [facility]. METABOLIC PANEL (54210)2020-02-18 11:29:00 Test Item Value Reference Range Interpretation Comments NA (test code = 136 mmol/L 135-145 4824492468) K (test code = 4.3 mmol/L 3.5-5 4725564206) CL (test code = 105 mmol/L 98-108 7561391275) CO2 TOTAL (test code = 24 mmol/L 23-31 3287343085) AGAP (test code = 2-16 2777455239) BUN (test code = 8 mg/dL 7-23 2290251750) GLUCOSE (test code = 150 mg/dL 70-110 H 1265452993) CREATININE (test code = 0.52 mg/dL 0.5-1.04 2896132832) TOTAL BILI (test code = 0.6 mg/dL 0.1-1.9 3079932598) CALCIUM (test code = 8.6 mg/dL 8.6-10.6 3032591571) T PROTEIN (test code = 8.2 g/dL 6.3-8.2 5332162264) ALBUMIN (test code = 3.8 g/dL 3.5-5 1218165801) ALK PHOS (test code = 85 U/L 34-122 9334101378) ALTv (test code = 42 U/L 5-35 H 1742-6) AST(SGOT) (test code = 65 U/L 13-40 H 6779476253) eGFR Calculation mL/min/1.73m2 (Non-) (test code = 2646335229) eGFR Calculation mL/min/1.73m2 () (test code = 4507581267) DEANNA (test code = DEANNA) Association of [...] tests). Lab Interpretation Abnormal (test code = 63413-6) [facility]2020-07-[facility] 11:28:00 Test Item Value Reference Range Interpretation Comments LIPASE (test code = 4267664972) 107 U/L 0-220 Lab Interpretation (test code = Normal 78126-2) [facility]COVID[facility] (ID NOW RAPID TESTING)2020-02-18 11:21:00 Test Item Value Reference Range Interpretation Comments SARS-CoV-2 Rapid ID NOW Positive Not Detected A (test code = 67915-1) DEANNA (test code = DEANNA) ID NOW COVID-19 Assay is an isothermal nucleic acid amplification test intended for the qualitative detection of nucleic acid from SARS-CoV-2 viral RNA in nasopharyngeal (LIBRARY DIRECTOR) specimens. It is used under Emergency Use [...] indicated. Lab Interpretation Abnormal (test code = 93444-6) [id number] Test Item Value Reference Range Interpretation Comments POCT PREG (test code = 1605) Negative On board controls acceptable with Present C Line (test code = 3574) POCT PREG LOT # (test code = 3575) [id number] POCT PREG TEST DATE (test 04/20/2021 code = 3576) Lab Interpretation (test code = Normal 80887-0) [facility]
--- NOTE | 2022-09-29 15:33 | RAD REPORT ---
EXAM DESCRIPTION: RAD - Chest Pa And Lat (2 Views) - 09/29/2022 3:24 pm CLINICAL HISTORY: COUGH COMPARISON: Chest Pa And Lat (2 Views) dated 10/25/2018; Chest Pa And Lat (2 Views) dated 11/12/2017 FINDINGS: Lines: None. Lungs: No evidence of edema or pneumonia. Pleural: No significant pleural effusions or pneumothorax. Cardiac: The heart size is within normal limits. Mediastinum: Within normal limits. Bones: No acute fractures. Other: None IMPRESSION: No acute cardiopulmonary disease.
[2022-09-29 15:35] LABS: SARS-COV-2 RT PCR NEGATIVE (NEGATIVE)
[2022-09-29] MEDS ORDERED: FAMOTIDINE 20 MG TAB ONE (16:10)
[2022-09-29] MEDS ORDERED: predniSONE 20 MG TAB ONE (16:10)
[2022-09-29] MEDS ORDERED: HYDROCODONE/CHLORPHEN 5 ML/OSYR ONE (16:10)
[2022-09-29] MEDS ORDERED: ALBUTEROL 2.5 MG/3 ML NEB SOL ONE (16:10)
[2022-09-29 17:06] VITALS: TEMP 97.4
[2022-09-29 17:07] VITALS: BP 128/89; O2SAT 100
--- NOTE | 2022-10-12 16:11 | EDPHYS ---
Physician Documentation [facility] Name: Edgard Bearden Age: 37 yrs Sex: Female : 1985 Arrival Date: 09/29/2022 Time: 14:08 Bed 11 Private MD: ED Physician Kelby Mazariegos HPI: 09/29 15:09 This 37 yrs old Female presents to ER via Ambulatory with complaints of Cough, snw Congestion. 15:09 The patient or guardian reports cough, with productive sputum, that is yellow, flu snw symptoms, low-grade fever, myalgias. Onset: The symptoms/episode began/occurred 1 week(s) ago, and became persistent. Severity of symptoms: At their worst the symptoms were moderate. Associated signs and symptoms: Pertinent positives:. The patient has not experienced similar symptoms in the past. The patient has not recently seen a physician. taking zyrtec at night and mucinex in the mornings. Historical: - Allergies: 14:32 Rifampin; mb9 14:32 Sulfa (Sulfonamide Antibiotics); mb9 - Home Meds: 14:32 None [Active]; mb9 - PMHx: 14:32 PCOS; mb9 - Immunization history:: Adult Immunizations up to date. - Social history:: Smoking status: Patient denies any tobacco usage or history of. ROS: 15:08 Eyes: Negative for injury, pain, redness, and discharge, ENT: Negative for injury, snw pain, and discharge, Neck: Negative for injury, pain, and swelling, Cardiovascular: Negative for chest pain, palpitations, and edema. 15:08 Abdomen/GI: Negative for abdominal pain, nausea, vomiting, diarrhea, and constipation, Back: Negative for injury and pain, : Negative for injury, bleeding, discharge, and swelling, MS/Extremity: Negative for injury and deformity, Skin: Negative for injury, rash, and discoloration, Neuro: Negative for headache, weakness, numbness, tingling, and seizure, Psych: Negative for depression, anxiety, suicide ideation, homicidal ideation, and hallucinations. 15:08 Constitutional: Positive for body aches, fatigue, malaise. 15:08 Respiratory: Positive for cough, with yellow sputum, orthopnea, wheezing. Exam: 14:41 Constitutional: This is a well developed, well nourished patient who is awake, alert, snw and in no acute distress. Head/Face: Normocephalic, atraumatic. Eyes: Pupils equal round and reactive to light, extra-ocular motions intact. Lids and lashes normal. Conjunctiva and sclera are non-icteric and not injected. Cornea within normal limits. Periorbital areas with no swelling, redness, or edema. ENT: Nares patent. No nasal discharge, no septal abnormalities noted. Tympanic membranes are normal and external auditory canals are clear. Oropharynx with no redness, swelling, or masses, exudates, or evidence of obstruction, uvula midline. Mucous membranes moist. Neck: Trachea midline, no thyromegaly or masses palpated, and no cervical lymphadenopathy. Supple, full range of motion without nuchal rigidity, or vertebral point tenderness. No Meningismus. Chest/axilla: Normal chest wall appearance and motion. Nontender with no deformity. No lesions are appreciated. Cardiovascular: Regular rate and rhythm with a normal S1 and S2. No gallops, murmurs, or rubs. Normal PMI, no JVD. No pulse deficits. Abdomen/GI: Soft, non-tender, with normal bowel sounds. No distension or tympany. No guarding or rebound. No evidence of tenderness throughout. Back: No spinal tenderness. No costovertebral tenderness. Full range of motion. Skin: Warm, dry with normal turgor. Normal color with no rashes, no lesions, and no evidence of cellulitis. MS/ Extremity: Pulses equal, no cyanosis. Neurovascular intact. Full, normal range of motion. Neuro: Awake and alert, GCS 15, oriented to person, place, time, and situation. Cranial nerves II-XII grossly intact. Motor strength 5/5 in all extremities. Sensory grossly intact. Cerebellar exam normal. Normal gait. Psych: Awake, alert, with orientation to person, place and time. Behavior, mood, and affect are within normal limits. 14:41 Constitutional: The patient appears obese. 14:41 Respiratory: the patient does not display signs of respiratory distress, Breath sounds: bronchial sounds, that are moderate, are heard diffusely. Vital Signs: 14:29 BP 131 / 91; Pulse 85; Resp 20; Temp 97.4; Pulse Ox 97% on R/A; Weight 202.76 kg; mb9 Height 5 ft. 5 in. ; Pain 7/10; 15:57 BP 128 / 89; Pulse 98; Resp 18; Pulse Ox 100% ; mb9 14:29 Body Mass Index 74.39 (202.76 kg, 165.1 cm) mb9 14:29 Pain Scale: Adult mb9 MDM: 14:31 Patient medically screened. snw 15:50 Data reviewed: vital signs, nurses notes, lab test result(s), radiologic studies. snw Counseling: I had a detailed discussion with the patient and/or guardian regarding: the historical points, exam findings, and any diagnostic results supporting the discharge/admit diagnosis, the presence of at least one elevated blood pressure reading (>120/80) during this emergency department visit, lab results, radiology results, the need for outpatient follow up, to return to the emergency department if symptoms worsen or persist or if there are any questions or concerns that arise at home. Special discussion: I have referred the patient to see his PCP for further evaluation of high blood pressure. Based on the history and exam findings, there is no indication for further emergent testing or inpatient evaluation. I discussed with the patient/guardian the need to see the primary care provider for further evaluation of the symptoms. 15:51 Differential Diagnosis: Bronchitis Sinusitis Pneumonia. snw 09/29 14:35 Order name: COVID-19/FLU A+B; Complete Time: 15:35 snw 09/29 14:35 Order name: Chest Pa And Lat (2 Views) XRAY; Complete Time: 15:35 snw Administered Medications: 16:09 Drug: Tussionex Pennkinetic ER PO Suspension 5 ml Route: PO; mb9 16:10 Follow up: Response: No adverse reaction mb9 16:10 Drug: predniSONE PO 20 mg Route: PO; mb9 16:10 Follow up: Response: No adverse reaction mb9 16:10 Drug: Famotidine PO 20 mg Route: PO; mb9 16:10 Follow up: Response: No adverse reaction mb9 16:10 Drug: Albuterol Inhalation 2.5 mg Route: Inhalation; mb9 Disposition: 18:31 Co-signature as Attending Physician, Kelby Mazariegos MD I reviewed the patient's care rt provided by the Advanced Practice Provider and agree with the diagnosis and treatment plan. Disposition Summary: 09/29/22 15:49 Discharge Ordered Location: Home snw Condition: Stable snw Diagnosis - Acute bronchitis, unspecified snw Followup: snw - With: Emergency Department - When: As needed - Reason: Worsening of condition Followup: snw - With: Private Physician - When: 2 - 3 days - Reason: Recheck today's complaints, Continuance of care, Re-evaluation by your physician Discharge Instructions: - Discharge Summary Sheet snw - Acute Bronchitis, Adult snw - Rehydration, Adult snw Forms: - Medication Reconciliation Form snw - Thank You Letter snw - Antibiotic Education snw - Prescription Opioid Use snw Prescriptions: - Zyrtec 10 mg Oral Tablet - take 1 tablet by ORAL route once daily As needed; 20 tablet; Refills: 0, snw Product Selection Permitted - Tessalon Perles 100 mg Oral Capsule - take 1 capsule by ORAL route every 8 hours As needed; 15 capsule; Refills: 0, snw Product Selection Permitted - Albuterol Sulfate 2.5 mg /3 mL (0.083 %) Inhalation Solution for Nebulization - inhale 1 unit by NEBULIZATION route every 8 hours As needed; 1 Unspecified; snw Refills: 0, Product Selection Permitted - Prednisone 20 mg Oral Tablet - take 2 tablets by ORAL route once daily for 5 days; 10 tablet; Refills: 0, snw Product Selection Permitted - Pepcid 20 mg Oral Tablet - take 1 tablet by ORAL route once daily; 20 tablet; Refills: 0, Product snw Selection Permitted Signatures: Dispatcher [employer] EDTiffanie Denise FNP-C RN TEACHER-Csnw Meg Rojas RN RN mb9 Kelby Mazariegos MD MD rt Corrections: (The following items were deleted from the chart) 14:34 14:32 PSHx: None; cally mb9
--- NOTE | 2022-10-12 16:11 | ER ---
Nurse's Notes [facility] Name: Edgard Bearden Age: 37 yrs Sex: Female : 1985 Arrival Date: 09/29/2022 Time: 14:08 Bed 11 Private MD: Diagnosis: Acute bronchitis, unspecified Presentation: 09/29 14:29 Chief complaint: Patient states: "I feel SOB, coughing up thick mucous, and I get mb9 winded real easily. I feel like my allergies are actin gup". Coronavirus screen:. Coronavirus screen: Vaccine status: Patient reports being unvaccinated. Ebola Screen: No symptoms or risks identified at this time. Initial Sepsis Screen: Does the patient meet any 2 criteria? No. Patient's initial sepsis screen is negative. Does the patient have a suspected source of infection? No. Patient's initial sepsis screen is negative. Risk Assessment: Do you want to hurt yourself or someone else? Patient reports no desire to harm self or others. Onset of symptoms was September 21, 2022. 14:29 Method Of Arrival: Ambulatory mb9 14:29 Acuity: DALE 4 mb9 Triage Assessment: 14:34 General: Appears uncomfortable, Behavior is calm, cooperative. General: Appears obese. mb9 Neuro: Level of Consciousness is awake, alert, obeys commands, Oriented to person, place, time, situation, Appropriate for age. Cardiovascular: Patient's skin is warm and dry. Respiratory: Reports shortness of breath at rest cough that is productive, Airway is patent Respiratory effort is even, unlabored, Respiratory pattern is regular, symmetrical. Derm: Skin is pink, warm \\T\\ dry. Musculoskeletal: Range of motion: intact in all extremities. Historical: - Allergies: 14:32 Rifampin; mb9 14:32 Sulfa (Sulfonamide Antibiotics); mb9 - Home Meds: 14:32 None [Active]; mb9 - PMHx: 14:32 PCOS; mb9 - Immunization history:: Adult Immunizations up to date. - Social history:: Smoking status: Patient denies any tobacco usage or history of. Screenin:44 [facility] ED Fall Risk Assessment (Adult) History of falling in the last 3 months, mb9 including since admission No falls in past 3 months (0 pts) Confusion or Disorientation No (0 pts) Intoxicated or Sedated No (0 pts) Impaired Gait No (0 pts) Mobility Assist Device Used No (0 pt) Altered Elimination No (0 pt) Score/Fall Risk Level 0 - 2 = Low Risk Oriented to surroundings, Maintained a safe environment, Educated pt \\T\\ family on fall prevention, incl call for assistance when getting out of bed. Abuse screen: Denies threats or abuse. Nutritional screening: No deficits noted. Tuberculosis screening: No symptoms or risk factors identified. Assessment: 15:57 Reassessment: No changes from previously documented assessment. Patient and/or family mb9 updated on plan of care and expected duration. Pain level reassessed. Patient is alert, oriented x 3, equal unlabored respirations, skin warm/dry/pink. Derm: cyst noted above buttocks. Vital Signs: 14:29 BP 131 / 91; Pulse 85; Resp 20; Temp 97.4; Pulse Ox 97% on R/A; Weight 202.76 kg; mb9 Height 5 ft. 5 in. ; Pain 7/10; 15:57 BP 128 / 89; Pulse 98; Resp 18; Pulse Ox 100% ; mb9 14:29 Body Mass Index 74.39 (202.76 kg, 165.1 cm) mb9 14:29 Pain Scale: Adult mb9 ED Course: 14:08 Patient arrived in ED. [email or web address] 14:15 Tiffanie Trejo [facility]-C [facility]. snw 14:15 Kelby Mazariegos MD is Attending Physician. snw 14:32 Triage completed. mb9 14:34 Arm band placed on. mb9 14:44 Placed in gown. Bed in low position. Call light in reach. Side rails up X 1. Client mb9 placed on continuous cardiac and pulse oximetry monitoring. NIBP monitoring applied. 14:55 COVID-19/FLU A+B Sent. mb9 15:26 Chest Pa And Lat (2 Views) XRAY In Process Unspecified. EDMS 15:57 Meg Rojas RN is Primary Nurse. mb9 15:57 Assist provider with I \\T\\ D: of an abscess on Set up I\\T\\D tray. Performed by Alvin pearl 9 PA Wound packed. Patient tolerated well. Patient did not have IV access during this emergency room visit. Administered Medications: 16:09 Drug: Tussionex Pennkinetic ER PO Suspension 5 ml Route: PO; mb9 16:10 Follow up: Response: No adverse reaction mb9 16:10 Drug: predniSONE PO 20 mg Route: PO; mb9 16:10 Follow up: Response: No adverse reaction mb9 16:10 Drug: Famotidine PO 20 mg Route: PO; mb9 16:10 Follow up: Response: No adverse reaction mb9 16:10 Drug: Albuterol Inhalation 2.5 mg Route: Inhalation; mb9 Medication: 14:44 VIS not applicable for this client. mb9 Outcome: 15:49 Discharge ordered by . mita 15:58 Discharged to home ambulatory. mb9 15:58 Condition: stable 15:58 Discharge instructions given to patient, family, Instructed on discharge instructions, follow up and referral plans. Demonstrated understanding of instructions, follow-up care, medications, Prescriptions given X 4. 16:32 Patient left the ED. mb9 Signatures: Dispatcher [employer] EDMS Tiffanie Trejo, KAYLA-C BILLBOARD MECHANIC-CsnMaricel Sims Mary Beth, RN RN mb9 Corrections: (The following items were deleted from the chart) 14:32 14:29 Pulse 85bpm; Resp 20bpm; Pulse Ox 97% RA; Temp 97.4F; 202.76 kg; Height 5 ft. 5 mb9 in.; BMI: 74.3; Pain 7/10, Adult; mb9 14:34 14:32 PSHx: None; mb9 mb9 15:58 14:44 No provider procedures requiring assistance completed. mb9 mb9
== END 2022-09-29 16:32 | disposition home or self-care (01) ==
LOC: ER 13:59
DX: J20.9 Acute bronchitis, unspecified (principal); Z20.822 Contact with and (suspected) exposure to COVID-19
CPT/HCPCS: 0240U; 71046; 99284; J7512; J7613

== ENCOUNTER 2022-12-26 12:14 | Emergency (ER) | payer SELFPAY ==
--- OUTSIDE RECORDS SUMMARY | 2022-12-26 12:35 | XMS REPORT | Continuity of Care Document ---
:1985 Author Organization [facility] t Address [address] [place] [address] [address] [place] [address] Care Team Providers Name Role Phone Pcp, Patient Does Not Have A Primary Care Physician [id number] LAKSHMI VICENTE Attending Clinician Unavailable Lakshmi Newman Attending Clinician Doctor Unassigned, [place] Attending Clinician Unavailable Coleen Henry Attending Clinician [...] Disease Active Univers 7-30 ity of 00:00: [address] COVID-19 COVID-19 Disease Active Unive rs virus virus 7-30 [place] [address] [place] [address] Skin Skin Disease Active Univers lesion of [...] the ons ons original. ICD10 Diagnosis Term Medicare Insurance Specialist Utility Morbid Morbid Disease Active Univers obesity [...] management from the original. ICD10 Diagnosis Term Medicare Insurance Specialist Utility Elevated Elevated Disease Active Unive rs [...] to 0-25 ity of mide adverse 00:00: [place] Antibiot reaction 00 Medica l ics) s to Branch drug Social History Social Habit Start Date Stop Date Quantity Comments Source Exposure to 2022-07-14 2022-07-24 Not sure [facility] SARS-CoV-2 00:00:00 09:47:00 [facility] (event) Branch Alcohol intake 2022-07-24 2022-07-24 Current [facility] 00:00:00 00:00:00 non-drinker of [facility] alcohol (finding) Branch History [facility] Food 2020-02-18 2020-02-18 1 Univers ity of Scarcity 00:00:00 00:00:00 [place] [facility] History [facility] 2020-02-18 2020-02-18 2 University o f Transport Med 00:00:00 00:00:00 [place] Medic al Branch History [facility] 2020-02-18 2020-02-18 2 University o f Transport Non-Med 00:00:00 00:00:00 [place] M edical [facility] Education 2020-02-18 2020-02-18 14 University of 00:00:00 00:00:00 [place] [facility] History [facility] 2020-02-18 2020-02-18 3 University o f Financial 00:00:00 00:00:00 [place] [facility] History [facility] Food 2020-02-18 2020-02-18 1 Univers ity of Worry 00:00:00 00:00:00 [facility] Tobacco use and 2014-11-11 2014-11-11 Smokeless tobacco Un iversity of exposure 00:00:00 00:00:00 non-user [facility] Sex Ass[birth year] At [birth year] Universit y of 00:00:00 00:00:00 [facility] Smoking Status Start Date Stop Date Source Never smoked tobacco [facility] Medications Ordered Filled Start Stop Current Ordering Indication Dosage Frequency Signature Comments Components Source Medication Medication Date Date Medication? Clinician (SIG) Name Name lidocaine Yes [id number] Swish, U nivers 2% viscous 1-03 gargle and ity of (LIDOCAINE 00:00: [place] or [place] VISCOUS[place] 2 00 swallow Medica l % solution 15mL q4h Branc h prn throat pain tobramycin 2022- No [id number] 2[drp] Place 2 Univers 0.3 % 07-24 Drops in ity of ophthalmic 00:00: 05:59 right eye [place] drops 00 :00 every 4 Medical (four) Branch hours for 7 days. Continue until you follow up with eye doctor. ergocalcife 2020-0 2020- No [id number] Take Univers rol, 02-24 50,000 ity of vitamin d2, 00:00: 04:59 Units by [place] 2,500 unit 00 :00 mouth Medical Cap weekly for Branch 4 doses. ergocalcife 2020-0 2020- No [id number] Take Univers rol, 02-24 50,000 ity of vitamin d2, 00:00: 04:59 Units by [place] 2,500 unit 00 :00 mouth Medical Cap weekly for Branch 4 doses. ergocalcife 2020-0 2020- No [id number] Take Univers rol, 02-24 50,000 ity of vitamin d2, 00:00: 04:59 Units by [place] 2,500 unit 00 :00 mouth Medical Cap weekly for Branch 4 doses. ergocalcife 2020-0 2020- No [id number] Take Univers rol, 02-24 50,000 ity of vitamin d2, 00:00: 04:59 Units by [place] 2,500 unit 00 :00 mouth Medical Cap weekly for Branch 4 doses. ergocalcife 2020-0 2020- No [id number] Take Univers rol, 02-24 50,000 ity of vitamin d2, 00:00: 04:59 Units by [place] 2,500 unit 00 :00 mouth Medical Cap weekly for Branch 4 doses. MULTIVITAMI 2020-0 Yes Take by Uni vers N ORAL 7-31 mouth. ity of 22:31: [address] Branch MULTIVITAMI 2020-0 Yes Take by Uni vers N ORAL 7-31 mouth. ity of 22:31: [address] Branch MULTIVITAMI 2020-0 Yes Take by Uni vers N ORAL 7-31 mouth. ity of 22:31: [address] Branch MULTIVITAMI 2020-0 Yes Take by Uni vers N ORAL 7-31 mouth. ity of 22:31: [address] MULTIVITAMI 2020-0 Yes Take by Uni vers N ORAL 7-31 mouth. ity of 22:31: [address] MULTIVITAMI 2020-0 Yes Take by Uni vers N ORAL 7-31 mouth. ity of 22:31: [address] MULTIVITAMI 2020-0 Yes Take by Uni vers N ORAL 7-31 mouth. ity of 17:31: [address] MULTIVITAMI 2020-0 Yes Take by Uni vers N ORAL 7-31 mouth. ity of 17:31: [address] docusate 2020-0 Yes 100mg 100 mg, Unive rs (COLACE) 7-31 Oral, BID, ity o f capsule 100 01:00: First dose [place] mg 00 on [facility] Medical 02/18/20 at [place] 1999, [facility], [facility] albuterol 2020-0 Yes [id number] 2.5mg Inhale 3 Univers 2.5 mg /3 7-31 mL every 4 ity of mL (0.083 00:00: (four) [place] %) 00 hours as Medical nebulizer needed for Bran ch solution Wheezing or Shortness of Breath. May also nebulize one extra every 6 hours. albuterol 2020-0 Yes [id number] 2.5mg Inhale 3 Univers 2.5 mg /3 7-31 mL every 4 ity of mL (0.083 00:00: (four) [place] %) 00 hours as Medical nebulizer needed for Bran ch solution Wheezing or Shortness of Breath. May also nebulize one extra every 6 hours. albuterol 2020-0 Yes [id number] 2.5mg Inhale 3 Univers 2.5 mg /3 7-31 mL every 4 ity of mL (0.083 00:00: (four) [place] %) 00 hours as Medical nebulizer needed for Bran ch solution Wheezing or Shortness of Breath. May also nebulize one extra every 6 hours. albuterol 2020-0 Yes [id number] 2.5mg Inhale 3 Univers 2.5 mg /3 7-31 mL every 4 ity of mL (0.083 00:00: (four) [place] %) 00 hours as Medical nebulizer needed for Bran ch solution Wheezing or Shortness of Breath. May also nebulize one extra every 6 hours. albuterol 2020-0 Yes [id number] 2.5mg Inhale 3 Univers 2.5 mg /3 -31 mL every 4 ity of mL (0.083 00:00: (four) [place] %) 00 hours as Medical nebulizer needed for Bran ch solution Wheezing or Shortness of Breath. May also nebulize one extra every 6 hours. albuterol 2020-0 Yes [id number] 2.5mg Inhale 3 Univers 2.5 mg /3 - [id number] mL every 4 i ty of mL (0.083 00:00: (four) [place] %) 00 hours as Medical nebulizer needed for Bran ch solution Wheezing or Shortness of Breath. May also nebulize one extra every 6 hours. albuterol 2020-0 Yes [id number] 2.5mg Inhale 3 Univers 2.5 mg /3 - [id number] mL every 4 i ty of mL (0.083 00:00: (four) [place] %) 00 hours as Medical nebulizer needed for Bran ch solution Wheezing or Shortness of Breath. May also nebulize one extra every 6 hours. albuterol 2020-0 Yes [id number] 2.5mg Inhale 3 Univers 2.5 mg /3 - mL every 4 ity of mL (0.083 00:00: (four) [place] %) 00 hours as Medical nebulizer needed for Bran ch solution Wheezing or Shortness of Breath. May also nebulize one extra every 6 hours. ascorbic 0 2019- No [id number] 500mg Take 1 Univers acid, 02-18 tablet by ity of vitamin C, 00:00: 04:59 mouth 3 [place] 500 mg 00 :00 (three) Medical tablet times Branch daily for 30 days. ferrous 2019-0 2019- No [id number] 325mg Take 1 U nivers sulfate 325 02-18 tablet by it y of mg (65 mg 00:00: 04:59 mouth 3 [place] iron) 00 :00 (three) Medical tablet times Branch daily with meals for 30 days. zinc 2019-2019- No [id number] 220mg Take 1 Univ ers sulfate 220 02-18 capsule by i ty of (50) mg 00:00: 04:59 mouth 2 [place] capsule 00 :00 (two) Medical times Branch daily for 30 days. metFORMIN 2019-2019- No [id number] 500mg Take 1 Univers 500 mg 02-18 tablet by ity of tablet 00:00: 04:59 mouth 2 [place] 00 :00 (two) Medical times Branch daily with meals for 30 days. ascorbic 2019-0 2019- No [id number] 500mg Take 1 Univers acid, 02-18 tablet by ity of vitamin C, 00:00: 04:59 mouth 3 [place] 500 mg 00 :00 (three) Medical tablet times Branch daily for 30 days. ferrous 2019-2019- No [id number] 325mg Take 1 U nivers sulfate 325 02-18 tablet by it y of mg (65 mg 00:00: 04:59 mouth 3 [place] iron) 00 :00 (three) Medical tablet times Branch daily with meals for 30 days. zinc 2019-2019- No [id number] 220mg Take 1 Univ ers sulfate 220 02-18 capsule by i ty of (50) mg 00:00: 04:59 mouth 2 [place] capsule 00 :00 (two) Medical times Branch daily for 30 days. metFORMIN 2019-2019- No [id number] 500mg Take 1 Univers 500 mg 02-18 tablet by ity of tablet 00:00: 04:59 mouth 2 [place] 00 :00 (two) Medical times Branch daily with meals for 30 days. ascorbic 2019-2019- No [id number] 500mg Take 1 Univers acid, 02-18 tablet by ity of vitamin C, 00:00: 04:59 mouth 3 [place] 500 mg 00 :00 (three) Medical tablet times Branch daily for 30 days. ferrous 2019-2019- No [id number] 325mg Take 1 U nivers sulfate 325 02-18 tablet by it y of mg (65 mg 00:00: 04:59 mouth 3 [place] iron) 00 :00 (three) Medical tablet times Branch daily with meals for 30 days. zinc 2019-2019- No [id number] 220mg Take 1 Univ ers sulfate 220 02-18- capsule by i ty of (50) mg 00:00: 04:59 mouth 2 [place] capsule 00 :00 (two) Medical times Branch daily for 30 days. metFORMIN 2019-2019- No [id number] 500mg Take 1 Univers 500 mg -21 03-31 tablet by ity of tablet 00:00: 04:59 mouth 2 [place] 00 :00 (two) Medical times Branch daily with meals for 30 days. ascorbic 2020-2019- No [id number] 500mg Take 1 Univers acid, -21 03-31 tablet by ity of vitamin C, 00:00: 04:59 mouth 3 [place] 500 mg 00 :00 (three) Medical tablet times Branch daily for 30 days. ferrous 2019-2019- No [id number] 325mg Take 1 U nivers sulfate 325 -21 03- tablet by it y of mg (65 mg 00:00: 04:59 mouth 3 [place] iron) 00 :00 (three) Medical tablet times Branch daily with meals for 30 days. zinc 2019-2019- No [id number] 220mg Take 1 Univ ers sulfate 220 02-18- capsule by i ty of (50) mg 00:00: 04:59 mouth 2 [place] capsule 00 :00 (two) Medical times Branch daily for 30 days. metFORMIN 2019- No [id number] 500mg Take 1 Univers 500 mg 02-18 tablet by ity of tablet 00:00: 04:59 mouth 2 [place] 00 :00 (two) Medical times Branch daily with meals for 30 days. ascorbic 2019-2019- No [id number] 500mg Take 1 Univers acid, 02-18- tablet by ity of vitamin C, 00:00: 04:59 mouth 3 [place] 500 mg 00 :00 (three) Medical tablet times Branch daily for 30 days. ferrous 2019-2019- No [id number] 325mg Take 1 U nivers sulfate 325 02-18 tablet by it y of mg (65 mg 00:00: 04:59 mouth 3 [place] iron) 00 :00 (three) Medical tablet times Branch daily with meals for 30 days. zinc 2019-2019- No [id number] 220mg Take 1 Univ ers sulfate 220 - 08-31 capsule by i ty of (50) mg 00:00: 04:59 mouth 2 [place] capsule 00 :00 (two) Medical times Branch daily for 30 days. metFORMIN 2019-2019- No [id number] 500mg Take 1 Univers 500 mg -21 03-31 tablet by ity of tablet 00:00: 04:59 mouth 2 [place] 00 :00 (two) Medical times Branch daily with meals for 30 days. budesonide 2020-0 2020- No [id number] .5mg Inhale 2 Univers 0.5 mg/2 mL 02-18 08-08 mL daily ity of nebulizer 00:00: 04:59 for 7 [place] solution 00 :00 days. Medical Branch budesonide 2019-0 2020- No [id number] .5mg Inhale 2 Univers 0.5 mg/2 mL 02-18 08-08 mL daily ity of nebulizer 00:: 04:59 for 7 [place] solution 00 :00 days. Medical Branch budesonide 2020-0 2020- No [id number] .5mg Inhale 2 Univers 0.5 mg/2 mL 02-18 08-08 mL daily ity of nebulizer 00:00: 04:59 for 7 [place] solution 00 :00 days. Medical Branch budesonide 2019-0 2020- No [id number] .5mg Inhale 2 Univers 0.5 mg/2 mL 02-18 08-08 mL daily ity of nebulizer 00:: 04:59 for 7 [place] solution 00 :00 days. Medical Branch dexAMETHaso 2019- 2020- No [id number] 4mg Take 1 Univers ne 4 mg [...] [place] mg 00 First dose Medical on [facility] 02/18/20 at 1700, Until Discontinu ed, Routine NaCl 0.9% Yes 10mL 10 mL, Univer s (NS) 7-30 Slow IV ity of injection 17:15: Push, PRN, [place] 10 mL 27 Starting Medical [facility] 02/18/20 at 1215, Until Discontinu [...] Until Discontinu ed, Routine ergocalcife 2020-0 Yes [id number] 50,000 Un miquel rol 7-30 Units, ity of (vitamin 14:00: Oral, [place] d2) 00 QWEEKLY, Medical (CALCIFEROL First dose Br anch ) capsule on [place] 50,000 02/18/20 at Units 0900, Until Discontinu ed, Routine lactobacill 2020-0 Yes 1{tbl} 1 tablet, Univers us 7-30 Oral, BID, ity of acidophilus 13:30: First dose [place] (ACIDOPHILL 00 on [place] Medica l US) 25 02/18/20 at Branch million 0830, cell -100 Until mg captab 1 Discontinu tablet ed, Routine ascorbic 2020-0 Yes 500mg 500 mg, Unive rs acid 7-30 Oral, TID, ity of (vitamin C) 13:30: First dose [place] (VITAMIN C) 00 on [facility] Medica l tablet 500 02/18/20 at [facility] mg 0830, Until Discontinu ed, Routine zinc 2020-0 Yes 220mg 220 mg, Univers sulfate 7-30 Oral, BID, ity of (ORAZINC) 13:30: First dose [place] capsule 220 00 on [facility] Medica l mg 02/18/20 at Branch 0830, Until Discontinu ed, Routine enoxaparin 2020-0 Yes 40mg 40 mg, Unive rs (LOVENOX) 730 Subcutaneo ity of injection 13:30: us, Q12H, [place] 40 mg 00 First dose Medical on [facility] Branch 02/18/20 at 0830, Until Discontinu ed, Routine ondansetron 2020-0 Yes 4mg 4 mg, Slow Univers (ZOFRAN 730 IV Push, ity of (PF)) 13:14: Q6HPRN, [place] injection 4 14 Starting Medi suly mg [facility] 02/18/20 at 0814, Until Discontinu [...] or has mental status changes. butalbital Yes [id number] 1{tbl} Take 1 Univers acetaminoph 5-24 tablet by ity of en-caff 00:00: mouth [place] 50-325-40 00 every 4 Medical mg tablet (four) Branch hours as needed for Headache. butalbital Yes [id number] 1{tbl} Take 1 Univers acetaminoph 5-24 tablet by ity of en-caff 00:00: mouth [place] 50-325-40 00 every 4 Medical mg tablet (four) Branch hours as needed for Headache. butalbital Yes [id number] 1{tbl} Take 1 Univers acetaminoph 5-24 tablet by ity of en-caff 00:00: mouth [place] 50-325-40 00 every 4 Medical mg tablet (four) Branch hours as needed for Headache. butalbital Yes [id number] 1{tbl} Take 1 Univers acetaminoph 5-24 tablet by ity of en-caff 00:00: mouth [place] 50-325-40 00 every 4 Medical mg tablet (four) Branch hours as needed for Headache. butalbital Yes [id number] 1{tbl} Take 1 Univers acetaminoph 5-24 tablet by ity of en-caff 00:00: mouth [place] 50-325-40 00 every 4 Medical mg tablet (four) Branch hours as needed for Headache. butalbital Yes [id number] 1{tbl} Take 1 Univers acetaminoph 5-24 tablet by ity of en-caff 00:00: mouth [place] 50-325-40 00 every 4 Medical mg tablet (four) Branch hours as needed for Headache. butalbital Yes [id number] 1{tbl} Take 1 Univers acetaminoph 5-24 tablet by ity of en-caff 00:00: mouth [place] 50-325-40 00 every 4 Medical mg tablet (four) Branch hours as needed for Headache. butalbital- 2019-0 Yes [id number] 1{tbl} Take 1 Univers acetaminoph 5-24 tablet by ity of en-caff 00:00: mouth [place] 50-325-40 00 every 4 Medical mg tablet (four) Branch hours as needed for Headache. ondansetron 2019-0 Yes [id number] 4mg Take 1 Univers (ZOFRAN 3-04 tablet by ity of ODT) 4 mg 00:00: mouth [place] disintegrat 00 every 8 Medic al ing tablet (eight) Branch hours as needed for Nausea and Vomiting (N/V). ondansetron 2019-0 Yes [id number] 4mg Take 1 Univers (ZOFRAN 3-04 tablet by ity of ODT) 4 mg 00:00: mouth [place] disintegrat 00 every 8 Medic al ing tablet (eight) Branch hours as needed for Nausea and Vomiting (N/V). ondansetron 2018-0 Yes [id number] 4mg Take 1 Univers (ZOFRAN 3-04 tablet by ity of ODT) 4 mg 00:00: mouth [place] disintegrat 00 every 8 Medic al ing tablet (eight) Branch hours as needed for Nausea and Vomiting (N/V). ondansetron 2019-0 Yes [id number] 4mg Take 1 Univers (ZOFRAN 3-04 tablet by ity of ODT) 4 mg 00:00: mouth [place] disintegrat 00 every 8 Medic al ing tablet (eight) Branch hours as needed for Nausea and Vomiting (N/V). ondansetron 2019-0 Yes [id number] 4mg Take 1 Univers (ZOFRAN 3-04 tablet by ity of ODT) 4 mg 00:00: mouth [place] disintegrat 00 every 8 Medic al ing tablet (eight) Branch hours as needed for Nausea and Vomiting (N/V). ondansetron 2019-0 Yes [id number] 4mg Take 1 Univers (ZOFRAN 3-04 tablet by ity of ODT) 4 mg 00:00: mouth [place] disintegrat 00 every 8 Medic al ing tablet (eight) Branch hours as needed for Nausea and Vomiting (N/V). ondansetron 2019-0 Yes [id number] 4mg Take 1 Univers (ZOFRAN 3-04 tablet by ity of ODT) 4 mg 00:00: mouth [place] disintegrat 00 every 8 Medic al ing tablet (eight) Branch hours as needed for Nausea and Vomiting (N/V). ondansetron 2019-0 Yes [id number] 4mg Take 1 Univers (ZOFRAN 3-04 tablet [...] vers (TESSALON 8-29 capsule by ity of [employer]) 100 00:00: mouth 3 [place] mg [...] vers (TESSALON 8-29 capsule by ity of [employer]rap[employer]) 100 00:00: mouth 3 [place] mg [...] vers (TESSALON 8-29 capsule by ity of [facility]) 100 00:00: mouth 3 [place] mg [...] Ordered Filled Immunization Date Status Comments [facility] e Immunization Name Name Pneumococcal 2015-01-17 [...] 2015-01-17 Completed University o f Polysaccharide, 00:00:00 [place] Med ical PPSV23 (PNEUMOVAX) Branch TDAP 2014-11-11 Completed University of 00:00:00 [facility] TDAP 2014-11-11 Completed University of 00:00:00 [facility] TDAP 2014-11-11 Completed University of 00:00:00 [facility] TDAP 2014-11-11 Completed University of 00:00:00 [facility] TDAP 2014-11-11 Completed University of 00:00:00 [facility] TDAP 2014-11-11 Completed University of 00:00:00 [facility] TDAP 2014-11-11 Completed University of 00:00:00 [facility] TDAP 2014-11-11 Completed University of 00:00:00 [facility] Vital Signs Vital Name Observation Time Observation Value Comments Source Systolic blood 2022-07-24 18:21:00 162 mm[Hg] Univer sity of pressure [facility] Diastolic blood 2022-07-24 18:21:00 98 mm[Hg] Unive rsity of pressure [facility] Heart rate 2022-07-24 18:21:00 75 /min Universi ty of [place] [facility] Respiratory rate 2022-07-24 18:21:00 20 /min Univ ersity of [place] [facility] Oxygen saturation in 2022-07-24 18:21:00 97 /min University of Arterial blood by [place] [employer] suly Pulse oximetry Branch Body temperature 2022-07-24 15:47:00 36.72 Lauren Univ ersity of [place] [facility] Body height 2022-07-24 15:47:00 165.1 cm Universi ty of [place] [facility] Body weight 2022-07-24 15:47:00 195.047 kg Universi ty [facility] [place] [facility] BMI 2022-07-24 15:47:00 71.56 kg/m2 Universi ty [facility] [place] [facility] Systolic blood 2020-02-19 18:46:00 170 mm[Hg] Univer sity of pressure [place] [facility] Diastolic blood 2020-02-19 18:46:00 83 mm[Hg] Unive rsity of pressure [place] [facility] Heart rate 2020-02-19 18:46:00 58 /min Universi ty of [place] [facility] Respiratory rate 2020-02-19 18:46:00 17 /min Univ ersity of [place] [facility] Oxygen saturation in 2020-02-19 18:46:00 95 /min University of Arterial blood by [facility] Pulse oximetry Branch Body temperature 2020-02-19 17:00:00 36.22 Lauren Univ ersity of [place] [facility] Body height 2020-02-18 15:14:00 165.1 cm Universi ty of [place] [facility] Body weight 2020-02-18 10:41:00 215.459 kg Universi ty of [place] [facility] BMI 2020-02-18 10:41:00 79.04 kg/m2 Universi ty [facility] [place] [facility] Systolic blood 2020-02-19 18:46:00 170 mm[Hg] Univer sity of pressure [place] [facility] Diastolic blood 2020-02-19 18:46:00 83 mm[Hg] Unive rsity of pressure [place] [facility] Heart rate 2020-02-19 18:46:00 58 /min Universi ty of [place] [facility] Respiratory rate 2020-02-19 18:46:00 17 /min Univ ersity of [place] [facility] Oxygen saturation in 2020-02-19 18:46:00 95 /min University of Arterial blood by [place] [employer] suly Pulse oximetry Branch Body temperature 2020-02-19 17:00:00 36.22 Lauren Univ [facility] Body height 2020-02-18 15:14:00 165.1 cm [facility] Body weight 2020-02-18 10:41:00 215.459 kg [facility] BMI 2020-02-18 10:41:00 79.04 kg/m2 [facility] Procedures Procedure Date / Time Performing Clinician Source Performed RAPID STREP SCREEN FOR 2022-07-24 16:47:00 Lakshmi Vicente [facility] [place] CONSENT/REFUSAL FOR 2022-07-24 15:42:25 Doctor Unassigned, No Un [facility] DIAGNOSIS AND TREATMENT Name [facility] [place] POCT GLUCOSE (AUTOMATED) 2020-02-19 17:15:00 [facility]on [facility] POCT GLUCOSE (AUTOMATED) 2020-02-19 13:11:00 Jadon [facility] PHOSPHORUS 2020-02-19 10:44:00 Percy Uriostegui [facility] MAGNESIUM 2020-02-19 10:44:00 Gila [facility] COMP. METABOLIC PANEL 2020-02-19 10:44:00 Percy Uriostegui [facility] ([id number]) [facility] CBC WITH DIFF 2020-02-19 10:44:00 Gila [facility] N-TERMINAL PRO-BNP 2020-02-19 10:44:00 Gila la [facility] POCT GLUCOSE (AUTOMATED) 2020-02-19 00:42:00 Jadon [facility] POCT GLUCOSE (AUTOMATED) 2020-02-18 23:04:[address] [facility] CHEST PULMONARY 2020-02-18 22:10:00 Jadon Ascencio [facility] ANGIOGRAM [facility] POCT GLUCOSE (AUTOMATED) 2020-02-18 17:53:00 Jadon [facility] VITAMIN B12, LEVEL 2020-02-18 14:10:00 Gila la [facility] C-REACTIVE PROTEIN 2020-02-18 14:10:[address] [facility] IRON PANEL 2020-02-18 14:10:00 Gila [facility] PROTHROMBIN TIME / INR 2020-02-18 14:10:00 Gila la [facility] D-DIMER 2020-02-18 14:10:00 Gila [facility] N-TERMINAL PRO-BNP 2020-02-18 14:10:[address] [facility] VITAMIN D, 25-OH 2020-02-18 14:10:00 Gila [facility] PROCALCITONIN 2020-02-18 14:10:00 Gila [facility] PHOSPHORUS 2020-02-18 14:08:00 Gila [facility] MAGNESIUM 2020-02-18 14:08:00 Gila [facility] FERRITIN SERUM 2020-02-18 14:08:00 Gila [facility] THYROID STIMULATING 2020-02-18 14:08:00 Gila la [facility] HORMONE [facility] LIPID PANEL 2020-02-18 14:08:00 Gila [facility] ([id number])(TOTAL Medical [place] CHOLESTEROL, TRIGLYCERIDES, HDL) ACUTE CARE VENOUS BLOOD 2020-02-18 14:08:00 Gila [facility] GAS [facility] SEDIMENTATION RATE 2020-02-18 14:08:[address] [facility] GLYCOSYLATED HEMOGLOBIN 2020-02-18 14:08:00 Gila [facility] (A1C) [facility] XR CHEST 1 VW 2020-02-18 11:19:28 Juan Mccarthy [facility] LIPASE 2020-02-18 11:08:00 Juan Mccarthy [facility] TROPONIN I 2020-02-18 11:08:00 Juan Mccarthy [facility] COMP. METABOLIC PANEL 2020-02-18 11:08:00 [facility] ([id number]) [facility] CBC WITH DIFF 2020-02-18 11:08:00 Juan Mccarthy [facility] N-TERMINAL PRO-BNP 2020-02-18 11:08:00 [facility] COVID-19 (ID NOW RAPID 2020-02-18 11:01:00 Juan Mccarthy [facility] TESTING) [facility] POCT TEST 2020-02-18 10:58:00 Juan Mccarthy [facility] EKG-12 LEAD 2020-02-18 10:47:05 Juan Mccarthy [facility] EKG-12 LEAD 2020-02-18 10:39:34 Juan Mccarthy [facility] ASSIGNMENT OF BENEFITS 2020-02-18 10:24:53 Doctor Unassigned, No [facility] NOTICE OF PRIVACY 2020-02-18 10:24:19 Doctor Unassigned, No [facility] PRACTICES [facility] CONSENT/REFUSAL FOR 2020-02-18 10:24:01 Doctor Unassigned, No [facility] DIAGNOSIS AND TREATMENT [facility] Encounters Start End Encounter Admission Attending Care Care Encounter Source Date/Time Date/Time Type Type Clinicians Facility Department ID 2022-07-24 2022-07-24 Emergency X JULES DCMARY JO ERT [id number] [facility] 09:48:00 12:45:00 [facility] 2022-07-24 2022-07-24 Emergency Jules [facility] [id number] Univers 09:48:00 12:45:00 Lakshmi GROSS 350.1.13.10 i ty [facility] 4.2.7.2.686 [facility] [phone] [facility] [address] 2022-07-24 2022-07-24 Orders Doctor BRENNAN 1.2.840.114 [id number] Univers 00:00:00 00:00:00 Only Unassigned, LOGAN 350.1.13.10 ity of [place] [facility] 4.2.7.2[address] [facility] [phone] [facility] [address] 2020-03-22 2020-03-22 Patient Wellington Henry 1.2.840.114 [id number] 00:00:00 00:00:00 Outreach Coleen E Deleon 350.1.13.10 [place] 4.2.7.2.686 [id number] [facility] 2020-03-22 2020-03-22 Patient Wellington Henry 1.2.840.114 [id number] Univers 00:00:00 00:00:00 Outreach Coleen E Deleon 350.1.13.10 [id number] [address] 2020-03-08 2020-03-08 Patient Meg Hilariobhupendra 1.2.840.114 [id number] 00:00:00 00:00:00 Outreach E Deleon 350.1.13.10 [place] 4.2.7.2.686 [id number] [facility] 2020-03-08 2020-03-08 Patient Meg Hilariobhupendra 1.2.840.114 [id number] Univers 00:00:00 00:00:00 Outreach E Dele[place] 350.1.13.10 [id number] [address] 2020-02-23 2020-02-23 Patient CarlKarinebhupendra 1.2.840.114 [id number] 00:00:00 00:00:00 Outreach Coleen E Deleon 350.1.13.10 [place] 4.2.7.2.686 [id number] [facility] 2020-02-23 2020-02-23 Patient Carl [place] 1.2.840.114 [id number] [facility] 00:00:00 00:00:00 Outreach Coleen E Deleon 350.1.13.10 [id number] [address] 2020-02-22 2020-02-22 Transition Wellington Webster 1.2.840.114 [id number] 00:00:00 00:00:00 of Care Annia Deleon 350.1.13.10 [place] 4.2.7.2.686 [id number] [facility] 2020-02-22 2020-02-22 Transition Wellington Webster 1.2.840.114 [id number] 00:00:00 00:00:00 of Care Annia Deleon 350.1.13.10 [place] 4.2.7.2.686 [id number] [facility] 2020-02-22 2020-02-22 Transition Wellington Webster 1.2.840.114 [id number] Univers 00:00:00 00:00:00 of Care Annia Deleon 350.1.13.10 [id number] [address] 2020-02-22 2020-02-22 Transition Wellington Webster 1.2.840.114 [id number] Univers 00:00:00 00:00:00 of Care Annia Deleon 350.1.13.10 [id number] [address] 2020-02-18 2020-02-19 [facility] 1.2.840. 114 [id number] [facility] 05:27:00 16:00:00 Encounter Jadon Ascencio 350.1.13.10 ity of [place] 4.2.7.2.686 [facility] [id number] [address] 2020-02-18 2020-02-19 [facility] 1.2.840. 114 [id number] 05:27:00 16:00:00 Encounter Jadon Ascencio 350.1.13.10 [place] 4.2.7.2.686 [place] [id number] [facility] 2020-02-18 2020-02-18 Emergency X [facility] ERT [id number] Univers 05:27:00 05:27:00 [facility] Results Test Description Test Time Test Comments Results Result Comments Source POCT GLUCOSE (AUTOMATED) 2020-02-19 18:40:00 Test Item Value Reference Range Interpretation Comme nts POCT GLU (test code = 0962850047) 217 mg/dL 70-110 H Lab Interpretation (test code = 77451-7) [facility]normal [facility] 15:40:00 Test Item Value Reference Range Interpretation Comments POCT GLU (test code = 2780187151) 161 mg/dL 70-110 H Lab Interpretation (test code = Abnormal 31607-0) [facility] WITH [id number] 14:16:00 Test Item Value Reference Range Interpretation [...] RDW-SD (test code = 40.8 fL 39-49.9 84547-1) RDW-CV (test code = 13.6 % 12-15.5 788-0) PLT (test code = See_Comment H [Automated 777-3) message] The sy stem which generated this result transmitted reference range : 166 - 358 10*3/ ?L. The reference r rosibel was not used to interpret this result as normal/abnormal . MPV (test code = 10.1 fL 9.5-12.9 78791-1) NRBC/100 WBC (test See_Comment [Automat ed code = 5044831634) message] The system which generated this result transmitted reference range : 0.0 - 10.0 /100 WBCs. The refer ence range was not u sed to interpret th is result as normal/abnormal . NRBC x10^3 (test code See_Comment [Auto mated = 8717370666) message] The s ystem which generated this result transmitted reference range : 10*3/?L. The reference range was not used to interpret this result as normal/abnormal . GRAN MAT (NEUT) % 70.8 % (test code = 770-8) IMM GRAN % (test code 2.10 % = 5168313818) LYMPH % (test code = 19.3 % 736-9) MONO % (test code = 7.3 % 5905-5) EOS % (test code = 0.2 % 713-8) BASO % (test code = 0.3 % 706-2) GRAN MAT x10^3(ANC) 6.84 10*3/uL 1.88-7.09 (test code = 2010727080) IMM GRAN x10^3 (test 0.20 10*3/uL 0-0.06 H code = 3298385780) LYMPH x10^3 (test code 1.86 10*3/uL 1.32-3.29 [...] . Lab Interpretation Abnormal (test code = 76988-9) [facility] [id number] 14:15:00 Test Item Value Reference Range Interpretation Comments CRP (test code = 5128445951) 5.4 mg/dL <0.8 H Lab Interpretation (test code = Abnormal 77383-4) [facility] [id number] 11:53:00 Test Item Value Reference Range Interpretation Comments NT-proBNP (test code 221 pg/mL See_Comment H [Autom ated = 1113440001) message] The system which generated this result transmitted reference range : <=125. The reference range was not used to interpret this result as normal/abnormal . DEANNA (test code = DEANNA) Biotin has been reported to cause a negative bias, interpret results relative to patient's use of biotin. Lab Interpretation Abnormal (test code = 28570-5) [facility]. METABOLIC PANEL (61056)2020-02-19 11:46:00 Test Item Value Reference Range Interpretation Comments NA (test code = 139 mmol/L 135-145 7929182872) K (test code = 4.0 mmol/L 3.5-5 6920321570) CL (test code = 106 mmol/L 98-108 3524550515) CO2 TOTAL (test code = 26 mmol/L 23-31 7165777284) AGAP (test code = 2-16 5676877113) BUN (test code = 10 mg/dL 7-23 3774635780) GLUCOSE (test code = 174 mg/dL 70-110 H 5522902678) CREATININE (test code = 0.56 mg/dL 0.5-1.04 1470663376) TOTAL BILI (test code = 0.3 mg/dL 0.1-1.4 8835736456) CALCIUM (test code = 9.0 mg/dL 8.6-10.6 4660337835) T PROTEIN (test code = 7.9 g/dL 6.3-8.2 1708417235) ALBUMIN (test code = 3.8 g/dL 3.5-5 7287141459) ALK PHOS (test code = 88 U/L 34-122 2120806527) ALTv (test code = 33 U/L 5-35 1742-6) AST(SGOT) (test code = 34 U/L 13-40 5324057420) eGFR Calculation mL/min/1.73m2 (Non-) (test code = 4737956902) eGFR Calculation mL/min/1.73m2 () (test code = 2804267735) DEANNA (test code = DEANNA) Association of [...] tests). Lab Interpretation Abnormal (test code = 47611-2) [facility]and[facility]IUM2020-07-31 11:46:00 Test Item Value Reference Range Interpretation Comments MAGNESIUM (test code = 2441273902) 2.6 mg/dL 1.7-2.4 H Lab Interpretation (test code = Abnormal 44646-9) [facility]andPHOSPHORUS2020-07-31 11:45:00 Test Item Value Reference Range Interpretation Comments PHOSPHORUS (test code = 7391847639) 3.9 mg/dL 2.5-5 Lab Interpretation (test code = Normal 89367-4) [facility]andVITAMIN D, [id number] 01:00:00 Test Item Value Reference Range Interpretation Comments VIT D 25OH (test code = <13 25-80 L 65316-7) DEANNA (test code = DEANNA) Deficiency: <20 ng/mLInsufficiency: 20-24 ng/mLOptimal: 25-80 ng/mL Lab Interpretation (test Abnormal code = 00467-7) [facility]2020-02-19 00:53:00 Test Item Value Reference Range Interpretation Comments POCT GLU (test code = 7908078113) 250 mg/dL 70-110 H Lab Interpretation (test code = Abnormal 82098-7) [facility]andPOOH GLUCOSE (AUTOMATED)2020-02-19 00:35:00 Test Item Value Reference Range Interpretation Comments POCT GLU (test code = 4837029015) 226 mg/dL 70-110 H Lab Interpretation (test code = Abnormal 07955-9) [facility] CHEST PULMONARY [id number] 23:19:04Limited exam due to patient body habitus, [...] this study and agree with theabove report.[facility]andPROCALCITONIN 2020-02-18 22:20:00 Test Item Value Reference Range Interpretation Comments Procalcitonin (test 0.03 ng/mL <0.07 code = 3928626051) DEANNA (test code = DEANNA) INTERPRETATION OF [...] lung abscess/empyema. For further information please refer to:[email or web address] Lab Interpretation Normal (test code = 20699-8) [facility]andVITAMIN B12, [id number] 22:11:00 Test Item Value Reference Range Interpretation Comments VIT B12 (test code = >1000 240-930 H 5320755320) DEANNA (test code = DEANNA) Biotin has been reported to cause a positive bias, interpret results relative to patient's use of biotin. Lab Interpretation (test Abnormal code = 97674-3) [facility]SE (AUTOMATED)2020-02-18 17:59:00 Test Item Value Reference Range Interpretation Comments POCT GLU (test code = 4757528567) 209 mg/dL 70-110 H Lab Interpretation (test code = Abnormal 49749-6) [facility]ellandSEDIMENTATION [id number] 16:08:00 Test Item Value Reference Range Interpretation Comments ESR (test code = See_Comment [Automated message] 8132883241) The system [employer] generated this result transmitted ref erence range: 0 - 20 m m/HR. The reference r rosibel was not used to interpret this result as normal/abnor mal. Lab Interpretation (test Normal code = 21537-2) [facility]ellandFERRITIN [id number] 15:22:00 Test Item Value Reference Range Interpretation Comments FERRITIN (test code = 51.5 ng/mL 6-137 3270887064) DEANNA (test code = DEANNA) Biotin has been reported to cause a negative bias, interpret results relative to patient's use of biotin. Lab Interpretation (test Normal code = 27526-0) [facility] LevellandIRON [id number] 15:22:00 Test Item Value Reference Range Interpretation Comments IRON (test code = 8785266394) 30 ug/dL 50-160 L TIBC (test code = 2848457977) 357 ug/dL 250-410 % FE SAT (test code = 5506808951) 8 % 20-50 L Lab Interpretation (test code = Abnormal 20094-9) [facility]andN-TERMINAL [id number] 15:21:00 Test Item Value Reference Range Interpretation Comments NT-proBNP (test code 44 pg/mL See_Comment [Autom ated = 1660810225) message] The system which generated this result transmitted reference range : <=125. The reference range was not used to interpret this result as normal/abnormal . DEANNA (test code = DEANNA) Biotin has been reported to cause a negative bias, interpret results relative to patient's use of biotin. Lab Interpretation Normal (test code = 32976-7) [facility]ellandTHYROID STIMULATING [id number] 15:18:00 Test Item Value Reference Range Interpretation Comments TSH (test code = See_Comment [Automated message] 9613030524) The system [employer] generated this result transmitted ref erence range: 0.45 - 4 .70 mIU/L. The refe rence range was not u sed to interpret this result as normal/abnor mal. Lab Interpretation (test Normal code = 93722-3) [facility]ellandD-[id number] 15:03:00 Test Item Value Reference Interpretation Comments Range D-DIMER (test code = See_Comment H [Autom ated 9948860376) message] The system which generated this result [...] diagnosis. Lab Interpretation Abnormal (test code = 80553-4) [facility] LevellandPROTHROMBIN TIME / [id number] 14:59:00 Test Item Value Reference Range Interpretation Comments PROTIME PATIENT (test See_Comment [Auto mated message] code = 5964-2) The system [employer] generated this result transmitted ref erence range: 12.0 - 1 4.7 Seconds. The re ference range was not u sed to interpret this result as normal/abnor mal. INR (test code = 6301-6) Nor mal INR <1.1; Warfarin Therap eutic range 2.0 to 3. 0 or 2.5 to 3.5, dep ending upon the indica tions. Lab Interpretation (test Normal code = 09218-3) [facility]ellandGlycosylated Hemoglobin (A1C)2020-02-18 14:53:00 Test Item Value Reference Range Interpretation Comments HGB A1C (test code = 10.0 % 4-6 H 4548-4) DEANNA (test code = DEANNA) %A1C (NGSP) Interpretation (ADA)4.8-5.6 ? ? Normal or (Non-Diabetic Range)5.7-6.4 ? ? Increased Risk (Pre-Diabetic)>6.5 ?Diabetes Indicated Lab Interpretation Abnormal (test code = 53040-8) [facility]ellandLipid Panel (Total Cholesterol, Triglycerides, HDL) - [id number] 14:46:00 Test Item Value Reference Range Interpretation Comments CHOL (test code = 103 mg/dL 120-200 L 4696946601) HDL (test code = 12 mg/dL >50 L 3256443411) HDLC RATIO (test code = See_Comment H [Au tomated message] 7369630404) The system [employer] generated this result transmit dee dee reference range : <=4.5. The refe rence range was not u sed to interpret th is result as normal/abnormal . TRIG (test code = 214 mg/dL 30-170 H 2818283921) LDL CHOL (test code = 48 mg/dL See_Comment [Auto mated message] 27682-9) The system [employer] generated this result transmit dee dee reference range : <=160. The refe rence range was not u sed to interpret th is result as normal/abnormal . VLDL (test code = 43 mg/dL 5-60 0007820596) Lab Interpretation (test Abnormal code = 24515-5) [facility]andMAGNESIUM2020-07-30 14:46:00 Test Item Value Reference Range Interpretation Comments MAGNESIUM (test code = 7033755774) 2.4 mg/dL 1.7-2.4 Lab Interpretation (test code = Normal 77032-0) [facility]andPHOSPHORUS2020-07-30 14:46:00 Test Item Value Reference Range Interpretation Comments PHOSPHORUS (test code = 8684678396) 3.7 mg/dL 2.5-5 Lab Interpretation (test code = Normal 05301-4) [facility]andAC[facility] VENOUS BLOOD [id number] 14:29:00 Test Item Value Reference Range Interpretation Comments PH (test code = 7.32-7.42 6540410338) PCO2 ANURAG (test code = See_Comment [Auto mated message] The 4134254563) system which ge nerated this result transmit dee dee reference range : 41 - 51 mmHg. The refer ence range was not used to interpret this result as normal/abnormal . PO2 ANURAG (test code = See_Comment [Autom ated message] The 2711134264) system which ge nerated this result transmit dee dee reference range : 25 - 40 mmHg. The refer ence range was not used to interpret this result as normal/abnormal . HCO3 ANURAG (test code = See_Comment [Auto mated message] The 6638269978) system which ge nerated this result transmit dee dee reference range : 24 - 28 mEq/L. The refe rence range was not used to interpret this result as normal/abnormal . AC VBE(BEAKER) (test mEq/L code = 9770597537) [facility]andXR CHEST 1 [id number] 12:21:34EXAM: XR CHEST 1 VW CLINICAL INDICATION: [...] have reviewed thisstudy and agree with theabove report.[facility], Radiant Results Inft User - 02/18/2020 7:22 [...] reviewed this study and agree with theabove report.[facility] WITH [id number] 11:50:00 Test Item Value Reference Range Interpretation [...] RDW-SD (test code = 41.4 fL 39-49.9 10362-6) RDW-CV (test code = 13.9 % 12-15.5 788-0) PLT (test code = See_Comment L [Automated 777-3) message] The sy stem which generated this result transmitted reference range : 166 - 358 10*3/ ?L. The reference r rosibel was not used to interpret this result as normal/abnormal . MPV (test code = 11.7 fL 9.5-12.9 20653-9) IPF % (test code = 11.2 % 1.3-7.7 H Platelet count 5126336218) measured by fluorescence method. NRBC/100 WBC (test See_Comment [Automat ed code = 7779654133) message] The system which generated this result transmitted reference range : 0.0 - 10.0 /100 WBCs. The refer ence range was not u sed to interpret th is result as normal/abnormal . NRBC x10^3 (test code See_Comment [Auto mated = 1726700841) message] The s [employer] which generated this result transmitted reference range : 10*3/?L. The reference range was not used to interpret this result as normal/abnormal . GRAN MAT (NEUT) % 63.6 % (test code = 770-8) IMM GRAN % (test code 1.50 % = 9570906321) LYMPH % (test code = 28.2 % 736-9) MONO % (test code = 5.4 % 5905-5) EOS % (test code = 1.0 % 713-8) BASO % (test code = 0.3 % 706-2) GRAN MAT x10^3(ANC) 3.85 10*3/uL 1.88-7.09 (test code = 0035952845) IMM GRAN x10^3 (test 0.09 10*3/uL 0-0.06 H code = 0927770917) LYMPH x10^3 (test code 1.71 10*3/uL 1.32-3.29 = 731-0) MONO x10^3 (test code 0.33 10*3/uL 0.33-0.92 = 742-7) EOS x10^3 (test code = 0.06 10*3/uL 0.03-0.39 711-2) BASO x10^3 (test code <0.03 0.01-0.07 = 704-7) PLT ESTIMATE (test Decreased Normal A code = 9317-9) Lab Interpretation Abnormal (test code = 03691-2) [facility] [id number] 11:40:00 Test Item Value Reference Range Interpretation Comments TROPONIN I (test <0.012 See_Comment [Automated code = 4283436028) message] The system which generated this result [...] ? Lab Interpretation Normal (test code = 22169-9) [facility]-TERMINAL [id number] 11:37:00 Test Item Value Reference Range Interpretation Comments NT-proBNP (test code 40 pg/mL See_Comment [Autom ated = 6643410330) message] The system which generated this result transmitted reference range : <=125. The reference range was not used to interpret this result as normal/abnormal . DEANNA (test code = DEANNA) Biotin has been reported to cause a negative bias, interpret results relative to patient's use of biotin. Lab Interpretation Normal (test code = 28597-9) [facility]andCOMP. METABOLIC PANEL (43622)2020-02-18 11:29:00 Test Item Value Reference Range Interpretation Comments NA (test code = 136 mmol/L 135-145 5069065183) K (test code = 4.3 mmol/L 3.5-5 0389327317) CL (test code = 105 mmol/L 98-108 7863136342) CO2 TOTAL (test code = 24 mmol/L 23-31 6552562019) AGAP (test code = 2-16 5363865144) BUN (test code = 8 mg/dL 7-23 8077384939) GLUCOSE (test code = 150 mg/dL 70-110 H 8514922155) CREATININE (test code = 0.52 mg/dL 0.5-1.04 2688903414) TOTAL BILI (test code = 0.6 mg/dL 0.1-1.0 6475012158) CALCIUM (test code = 8.6 mg/dL 8.6-10.6 0212807823) T PROTEIN (test code = 8.2 g/dL 6.3-8.2 8782518915) ALBUMIN (test code = 3.8 g/dL 3.5-5 1902501483) ALK PHOS (test code = 85 U/L 34-122 1238577591) ALTv (test code = 42 U/L 5-35 H 1742-6) AST(SGOT) (test code = 65 U/L 13-40 H 1602800936) eGFR Calculation mL/min/1.73m2 (Non-) (test code = 8310632045) eGFR Calculation mL/min/1.73m2 () (test code = 4970676428) DEANNA (test code = DEANNA) Association of [...] tests). Lab Interpretation Abnormal (test code = 40636-4) [facility]and[facility]IP[facility]2020-07-30 11:28:00 Test Item Value Reference Range Interpretation Comments LIPASE (test code = 5705898675) 107 U/L 0-220 Lab Interpretation (test code = Normal 56134-4) [facility]OVID[facility] (ID NOW RAPID TESTING)2020-02-18 11:21:00 Test Item Value Reference Range Interpretation Comments SARS-CoV-2 Rapid ID NOW Positive Not Detected A (test code = 92579-9) DEANNA (test code = DEANNA) ID NOW COVID-19 Assay is an isothermal nucleic acid amplification test intended for the qualitative detection of nucleic acid from SARS-CoV-2 viral RNA in nasopharyngeal ([employer]) specimens. It is used under Emergency Use [...] indicated. Lab Interpretation Abnormal (test code = 35922-9) [facility]andPOCT [id number] 10:58:00 Test Item Value Reference Range Interpretation Comments POCT PREG (test code = 1605) Negative On board controls acceptable with Present C Line (test code = 3574) POCT PREG LOT # (test code = 3575) [id number] POCT PREG TEST DATE (test 04/20/2021 code = 3576) Lab Interpretation (test code = Normal 61428-4) [facility]
--- NOTE | 2022-12-26 12:37 | EDPHYS ---
Physician Documentation [facility] Name: Edgard Bearden Age: 37 yrs Sex: Female : 1985 Arrival Date: 12/26/2022 Time: 12:14 Bed 27 Private MD: ED Physician Madi Michaud HPI: 12/26 12:40 This 37 yrs old Female presents to ER via Ambulatory with complaints of ms3 Allergic Reaction. 12:40 37-year-old female with past medical history of PCOS presents for possible allergic ms3 reaction that she noted this morning. Patient states the roof of her mouth hurts and she was having posterior mouth pain. Patient states she did not eat anything out of the normal yesterday. Patient states she took 50 mg of Benadryl at 8 AM and symptoms improved. Patient denies inciting factors, shortness of breath, rashes, itching. Historical: - Allergies: 12:33 Rifampin; hb 12:33 Sulfa (Sulfonamide Antibiotics); hb - Home Meds: 12:37 None [Active]; hb - PMHx: 12:33 PCOS; hb - Immunization history:: Adult Immunizations up to date. - Social history:: Smoking status: Patient denies any tobacco usage or history of. ROS: 12:40 Constitutional: Negative for fever, and chills. Neck: Negative for injury, pain, and ms3 swelling, Cardiovascular: Negative for chest pain, and palpitations. Respiratory: Negative for shortness of breath, cough, wheezing, and pleuritic chest pain, Abdomen/GI: Negative for abdominal pain, nausea, vomiting, diarrhea, and constipation, MS/Extremity: Negative for injury and deformity, Skin: Negative for injury, rash, and discoloration. 12:40 ENT: Positive for Mouth pain. Exam: 12:40 Constitutional: This is a well developed, well nourished patient who is awake, alert, ms3 and in no acute distress. Head/Face: Normocephalic, atraumatic. Eyes: Pupils equal round and reactive to light, extra-ocular motions intact. Lids and lashes normal. Conjunctiva and sclera are non-icteric and not injected. Periorbital areas with no swelling, redness, or edema. Neck: Trachea midline, no cervical lymphadenopathy. Supple, full range of motion without nuchal rigidity, or vertebral point tenderness. No Meningismus. Chest/axilla: Normal chest wall appearance and motion. Nontender with no deformity. Cardiovascular: Regular rate and rhythm with a normal S1 and S2. No gallops, murmurs, or rubs. Normal PMI, no JVD. No pulse deficits. Respiratory: Lungs have equal breath sounds bilaterally, clear to auscultation and percussion. No rales, rhonchi or wheezes noted. No increased work of breathing, no retractions or nasal flaring. Abdomen/GI: Soft, non-tender, with normal bowel sounds. No distension or tympany. No guarding or rebound. No evidence of tenderness throughout. Skin: Warm, dry with normal turgor. Normal color with no rashes, no lesions, and no evidence of cellulitis. MS/ Extremity: Pulses equal, no cyanosis. Neurovascular intact. Full, normal range of motion. Vital Signs: 12:33 BP 143 / 70; Pulse 69; Resp 16; Temp 98.4; Pulse Ox 96% on R/A; hb MDM: 12:36 Patient medically screened. ms3 12:40 Differential diagnosis: seasonal allergy vs food allergy. ms3 12:40 Data reviewed: vital signs, nurses notes, and as a result, I will discharge patient. I ms3 considered the following discharge prescriptions or medication management in the emergency department Medications were administered in the Emergency Department. See MAR. Counseling: I had a detailed discussion with the patient and/or guardian regarding: the historical points, exam findings, and any diagnostic results supporting the discharge/admit diagnosis, the need for outpatient follow up, to return to the emergency department if symptoms worsen or persist or if there are any questions or concerns that arise at home. Special discussion: I discussed with the patient/guardian in detail that at this point there is no indication for admission to the hospital. It is understood, however, that if the symptoms persist or worsen the patient needs to return immediately for re-evaluation. ED course: Discussed ER findings with patient. Patient to follow-up with her primary care physician in 2 to 3 days. Patient understands and agrees with plan. All questions were answered. Return precautions discussed include worsening symptoms, or any other concerns. Administered Medications: 13:14 Drug: predniSONE PO 40 mg Route: PO; [facility] 13:14 Follow up: Response: Medication administered at discharge. eh3 Disposition Summary: 12/26/22 12:36 Discharge Ordered Location: Home ms3 Condition: Stable ms3 Diagnosis - Mouth pain ms3 Followup: ms3 - With: Private Physician - When: 2 - 3 days - Reason: Recheck today's complaints Discharge Instructions: - Discharge Summary Sheet ms3 - Allergies, Adult ms3 Forms: - Medication Reconciliation Form ms3 - Thank You Letter ms3 - Antibiotic Education ms3 - Prescription Opioid Use ms3 Prescriptions: - Prednisone 20 mg Oral Tablet - take 2 tablets by ORAL route once daily for 5 days; 10 tablet; Refills: 0, ms3 Product Selection Permitted Signatures: Angélica Casas, RN RN Madi Michaud DO DO ms3 Sally Ceballos RN RN 3
--- NOTE | 2022-12-26 12:37 | ER ---
Nurse's Notes [facility] Name: Edgard Bearden Age: 37 yrs Sex: Female : 1985 Arrival Date: 12/26/2022 Time: 12:14 Bed 27 Private MD: Diagnosis: Mouth pain Presentation: 12/26 12:33 Chief complaint: Throat swelling, pain with swallowing, and itchy eyes x 2 days. hb Coronavirus screen: At this time, the client does not indicate any symptoms associated with coronavirus-19. Ebola Screen: No symptoms or risks identified at this time. Initial Sepsis Screen: Does the patient meet any 2 criteria? No. Patient's initial sepsis screen is negative. Does the patient have a suspected source of infection? No. Patient's initial sepsis screen is negative. Risk Assessment: Do you want to hurt yourself or someone else? Patient reports no desire to harm self or others. Onset of symptoms was December 26, 2022. 12:33 Method Of Arrival: Ambulatory hb 12:33 Acuity: DALE 4 hb Triage Assessment: 12:40 General: Appears in no apparent distress. uncomfortable, Behavior is cooperative, eh3 appropriate for age. Historical: - Allergies: 12:33 Rifampin; hb 12:33 Sulfa (Sulfonamide Antibiotics); hb - Home Meds: 12:37 None [Active]; hb - PMHx: 12:33 PCOS; hb - Immunization history:: Adult Immunizations up to date. - Social history:: Smoking status: Patient denies any tobacco usage or history of. Screenin:40 [facility] ED Fall Risk Assessment (Adult) Score/Fall Risk Level 0 - 2 = Low Risk. Abuse eh3 screen: Denies threats or abuse. Denies injuries from another. Nutritional screening: No deficits noted. Tuberculosis screening: No symptoms or risk factors identified. Assessment: 12:40 General: Appears in no apparent distress. uncomfortable, Behavior is cooperative, eh3 anxious. Pain: Complains of pain in throat. Neuro: Level of Consciousness is awake, alert, obeys commands, Oriented to person, place, time, situation. Cardiovascular: Capillary refill < 3 seconds Patient's skin is warm and dry. Respiratory: Airway is patent Respiratory effort is even, unlabored, Respiratory pattern is regular, symmetrical. GI: Abdomen is round non-distended. : No signs and/or symptoms were reported regarding the genitourinary system. EENT: Throat is reddened. Derm: Skin is pink, warm \T\ dry. Musculoskeletal: No signs and/or symptoms reported regarding the musculoskeletal system. Vital Signs: 12:33 BP 143 / 70; Pulse 69; Resp 16; Temp 98.4; Pulse Ox 96% on R/A; hb ED Course: 12:18 Patient arrived in ED. kj1 12:26 Madi Michaud DO is Attending Physician. ms3 12:37 Triage completed. hb 12:40 Patient has correct armband on for positive identification. eh3 12:40 Arm band placed on. eh3 13:03 Sally Ceballos, RN is Primary Nurse. eh3 13:14 No provider procedures requiring assistance completed. Patient did not have IV access eh3 during this emergency room visit. Administered Medications: 13:14 Drug: predniSONE PO 40 mg Route: PO; eh3 13:14 Follow up: Response: Medication administered at discharge. eh3 Medication: 12:40 VIS not applicable for this client. eh3 Outcome: 12:36 Discharge ordered by MD. ms3 13:14 Patient left the ED. eh3 13:14 Discharged to home ambulatory, with family. eh3 13:14 Condition: stable 13:14 Discharge instructions given to patient, Instructed on discharge instructions, follow up and referral plans. medication usage, Demonstrated understanding of instructions, follow-up care, medications, Prescriptions given X 1. Signatures: Angélica Casas RN JORGE Skyla Faulkner kj1 Madi Michaud DO DO ms3 Sally Ceballos, JORGE RN [facility]
[2022-12-26] MEDS ORDERED: predniSONE 20 MG TAB ONE (13:15)
[2022-12-26 13:18] VITALS: BP 143/70; TEMP 98.4; O2SAT 96
== END 2022-12-26 13:14 | disposition home or self-care (01) ==
LOC: ER 12:14
DX: K13.79 Other lesions of oral mucosa (principal); R07.0 Pain in throat; H57.89 Other specified disorders of eye and adnexa; Z88.2 Allergy status to sulfonamides; Z88.8 Allergy status to other drugs, medicaments and biological substances
CPT/HCPCS: 99283; J7512

== ENCOUNTER 2024-05-27 20:42 | Emergency (ER) | payer SELFPAY ==
--- OUTSIDE RECORDS SUMMARY | 2024-05-27 20:46 | XMS REPORT | Continuity of Care Document ---
Author Name Unknown Address [address] [place] [address] [facility] thconnect Address [address] [place] [address] Care Team Providers Care Fraud Analyst Name Role Phone Pcp, Patient Does Not Have A Primary Care Physic romeo Doctor Unassigned, Patten Attending Clinician U LAKSHMI Trevizo Attending Clinician Unavailable Lakshmi Newman Attending Clinician Coleen Henry Attending Clinician Meg Hilario RN Attending Clinician [phone] Annia Webster Attending Clinician Juan Mccarthy MD Attending Clinician Jadon Ascencio MD Attending Clinician [phone] JUAN MCCARTHY Attending Clinician Unavailable Jadon Ascencio MD Admitting Clinician [phone] Payers Payer Name Policy Type Policy Number Effective Date Expirati on Date Source Problems Condition Name Condition Details Condition Category Status Onset Date Resolution Date Last Treatment Date Treating Clinician Comments Source Hypoxia Hypoxia Disease Active 02-17 00:00: 00 [facility] COVID-19 virus infection COVID-19 virus infection Disease Active 02-17 00:00: 00 [facility] Skin lesion of breast Skin lesion of breast Disease Active 03-26 00:00: 00 [facility] Cellulitis of breast Cellulitis of breast Disease Active 03-26 00:00: 00 [facility] Diabetes mellitus type 2, uncontroll ed, without complicati ons Diabetes mellitus type 2, uncontroll ed, without complicati ons Disease Active 11-24 00:00: 00 Overview: Formattin g of this note might be different from the original. 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 [facility] Elevated blood pressure reading without diagnosis of hypertensi on Elevated blood pressure reading without diagnosis of hypertensi on Disease Active 11-14 00:00: 00 [facility] Allergies, Adverse Reactions, Alerts Allergy Name Allergy Type Status Severity Reaction(s) Onset Date Inactive Date Treating Clinician Comments Source Lactose Propensi ty to adverse reaction s Active Diarrhea 02-18 00:00: 00 [facility] LACTOSE DRUG INGREDI Active Diarrhea 02-18 00:00: 00 [facility] RIFAMPIN DRUG INGREDI Active Hives 2012-07 0 00:00: 00 [facility] SULFA (SULFONA MIDE ANTIBIOT ICS) Drug Class Active Hives 2012-07 0 00:00: 00 [facility] Sulfa (Sulfona mide Antibiot ics) Propensi ty to adverse reaction s to drug Active Hives 2012-07 0 00:00: 00 [facility] Rifampin Propensi ty to adverse reaction s to drug Active Hives 2012-07 0 00:00: 00 [facility] Sulfa (Sulfona mide Antibiot ics) Propensi ty to adverse reaction s to drug Active Hives 2012-07 0 00:00: 00 [facility] Social History Social Habit Start Date Stop Date Quantity Comments Source Gender identity [facility] Exposure to SARS-CoV-2 (event) 2022-07-14 00:00:00 2022-07-24 09:47:00 Not sure [facility] Alcohol intake 2022-07-24 00:00:00 2022-07-24 00:00:00 Current non-drinker of alcohol (finding) [facility] History SDOH Food Scarcity 2020-02-18 00:00:00 2020-02-18 00:00:00 1 [facility] History SDOH Transport Med 2020-02-18 00:00:00 2020-02-18 00:00:00 2 [facility] History SDOH Transport Non-Med 2020-02-18 00:00:00 2020-02-18 00:00:00 2 [facility] History of Social function 2020-02-18 00:00:00 2020-02-18 00:00:00 [facility] Education 2020-02-18 00:00:00 2020-02-18 00:00:00 14 [facility] History SDOH Financial 2020-02-18 00:00:00 2020-02-18 00:00:00 3 [facility] History SDOH Food Worry 2020-02-18 00:00:00 2020-02-18 00:00:00 1 [facility] Tobacco use and exposure 2014-11-11 00:00:00 2014-11-11 00:00:00 Smokeless tobacco non-user [facility] Sex Assigned At 1985 00:00:00 1985 00:00:00 [facility] Smoking Status Start Date Stop Date Source Never smoked tobacco [facility] Medications Ordered Medication Name Filled Medication Name Start Date Stop Date Current Medication? Ordering Clinician Indication Dosage Frequency Signature (SIG) Comments Components Source lidocaine 2% viscous (LIDOCAINE VISCOUS) 2 % solution 07-24 00:00: 00 Yes [id number] Swish, gargle and spit or swallow 15mL q4h prn throat pain [facility] tobramycin 0.3 % ophthalmic drops 1-03 00:00: 00 08-01 05:59 :00 No [id number] 2[drp] Place 2 Drops in right eye every 4 (four) hours for 7 days. Continue until you follow up with eye doctor. [facility] ergocalcife rol, vitamin d2, 2,500 unit Cap 02-24 00:00: 00 03-19 04:59 :00 No [id number] 90183M Take 50,000 Units by mouth weekly for 4 doses. [facility] MULTIVITAMI N ORAL 02-18 22:31: 39 Yes Take by mouth. [facility] MULTIVITAMI N ORAL 02-18 17:31: 39 Yes Take by mouth. [facility] docusate (COLACE) capsule 100 mg 02-18 01:00: 00 Yes 100mg 100 mg, Oral, BID, First dose on Susanne 02/18/20 at 1999, Until Discontinu ed, Routine [facility] albuterol 2.5 mg /3 mL (0.083 %) nebulizer solution 02-18 00:00: 00 Yes [id number] 2.5mg Inhale 3 mL every 4 (four) hours as needed for Wheezing or Shortness of Breath. May also nebulize one extra every 6 hours. [facility] ascorbic acid, vitamin C, 500 mg tablet 02-18 00:00: 03-21 04:59 :00 No [id number] 500mg Take 1 tablet by mouth 3 (three) times daily for 30 days. [facility] ferrous sulfate 325 mg (65 mg iron) tablet 02-18 00:00: 03-21 04:59 :00 No [id number] 325mg Take 1 tablet by mouth 3 (three) times daily with meals for 30 days. [facility] zinc sulfate 220 (50) mg capsule 02-18 00:00: 03-21 04:59 :00 No [id number] 220mg Take 1 capsule by mouth 2 (two) times daily for 30 days. [facility] metFORMIN 500 mg tablet 02-18 00:00: 03-21 04:59 :00 No [id number] 500mg Take 1 tablet by mouth 2 (two) times daily with meals for 30 days. [facility] budesonide 0.5 mg/2 mL nebulizer solution 02-18 00:00: 00 02-26 04:59 :00 No [id number] .5mg Inhale 2 mL daily for 7 days. [facility] dexAMETHaso ne 4 mg tablet 02-18 00:00: 02-18 00:00 :00 No [id number] 4mg Take 1 tablet by mouth daily for 5 days. [facility] iohexol (OMNIPAQUE 350 BULK-150 mL) injection 140 mL 02-17 22:30: 02-17 22:00 :00 No 140mL 140 mL, Intravenou s, ONCE, 1 dose, Susanne 02/18/20 at 1730, Routine [facility] ferrous sulfate tablet 325 mg 02-17 22:00: 00 Yes 325mg 325 mg, Oral, TID MEALS, First dose on Sat02/18/20 at 1700, Until Discontinu ed, Routine [facility] NaCl 0.9% (NS) injection 10 mL 02-17 17:15: 27 Yes 10mL 10 mL, Slow IV Push, PRN, Starting Susanne 02/18/20 at 1215, Until Discontinu ed, Routine, line maintenanc e [facility] lidocaine 1% (PF) (XYLOCAINE) injection 5 mL 02-17 17:15: 27 Yes 5mL 5 mL, Subcutaneo us, PRN, Starting Susanne 02/18/20 at 1215, Until Discontinu ed, Routine, Local anesthesia [facility] Sliding Scale Insulin - Aspart (NOVOLOG) + Fsbg Testing 02-17 17:00: 00 Yes Subcutaneo us, TID MEALS+HS, First dose on Sat02/18/20 at 1200, Until Discontinu ed, Routine [facility] azithromyci n (ZITHROMAX) 500 mg in NaCl 0.9% (NS) 250 mL VIAL-MATE IV piggyback 02-17 14:30: 00 02-18 12:34 :50 No 500mg 500 mg, IV Piggyback, Q24H ABX, 6 doses, First dose on Sat02/18/20 at 0930, Last dose on Sat02/23/20 at 0930, 250 mL
Reas on for Anti-Infec tive: Empiric Therapy for Suspected Infection< br>Empi flaco Therapy Site: Respirator y
Durat ion of therapy: 7 days [facility] cefTRIAXone (ROCEPHIN) 1,000 mg in NaCl 0.9% (NS) 50 mL MINI-BAG 02-17 14:30: 02-18 12:34 :50 No 1000mg 1,000 mg, IV Piggyback, Q12H ABX, First dose on Sat02/18/20 at 0930, Until Discontinu ed, 50 mL
Reas on for Anti-Infec tive: Empiric Therapy for Suspected Infection< br>Empiric Therapy Site: Respirator y
Durat ion of therapy: 7 days [facility] dexamethaso ne (DECADRON PHOSPHATE) injection 6 mg 02-17 14:00: 00 Yes 6mg 6 mg, Slow IV Push, DAILY, First dose on Sat02/18/20 at 0900, Until Discontinu ed, Routine [facility] ergocalcife rol (vitamin d2) (CALCIFEROL ) capsule 50,000 Units 02-17 14:00: 00 Yes [id number] 50,000 Units, Oral, QWEEKLY, First dose on Sat02/18/20 at 0900, Until Discontinu ed, Routine [facility] lactobacill us acidophilus (ACIDOPHILL US) 25 million cell -100 mg captab 1 tablet 02-17 13:30: 00 Yes 1{tbl} 1 tablet, Oral, BID, First dose on Sat02/18/20 at 0830, Until Discontinu ed, Routine [facility] ascorbic acid (vitamin C) (VITAMIN C) tablet 500 mg 02-17 13:30: 00 Yes 500mg 500 mg, Oral, TID, First dose on Sat02/18/20 at 0830, Until Discontinu ed, Routine [facility] zinc sulfate (ORAZINC) capsule 220 mg 02-17 13:30: 00 Yes 220mg 220 mg, Oral, BID, First dose on Sat02/18/20 at 0830, Until Discontinu ed, Routine [facility] enoxaparin (LOVENOX) injection 40 mg 02-17 13:30: 00 Yes 40mg 40 mg, Subcutaneo us, Q12H, First dose on Sat02/18/20 at 0830, Until Discontinu ed, Routine [facility] ondansetron (ZOFRAN (PF)) injection 4 mg 02-17 13:14: 14 Yes 4mg 4 mg, Slow IV Push, Q6HPRN, Starting Sat02/18/20 at 0814, Until Discontinu ed, Routine, Nausea and Vomiting (N/V) [facility] glucagon (GLUCAGEN DIAGNOSTIC KIT) injection 1 mg 02-17 13:13: 13 Yes 1mg 1 mg, Intramuscu lar, PRN, Starting Sat02/18/20 at 0813, Until Discontinu ed, TOM, Blood Glucose < or = 70 mg/dL and patient is unable to swallow or has mental changes. [facility] dextrose 50 % in water (D50W) injection 25 mL 02-17 13:13: 13 Yes 25mL 25 mL, Slow IV Push, PRN, Starting Susanne 02/18/20 at 0813, Until Discontinu ed, TOM, Blood Glucose < or = 70 mg/dL and patient is unable to swallow or has mental status changes. [facility] butalbital- acetaminoph en-caff 50-325-40 mg tablet 524 00:00: 00 Yes [id number] 1{tbl} Take 1 tablet by mouth every 4 (four) hours as needed for Headache. [facility] ondansetron (ZOFRAN ODT) 4 mg disintegrat ing tablet 3-04 00:00: 00 Yes [id number] 4mg Take 1 tablet by mouth every 8 (eight) hours as needed for Nausea and Vomiting (N/V). [facility] traMADOL (ULTRAM) 50 mg tablet 2016-07 00:00: 00 Yes 50mg Take 1 tablet by mouth every 6 (six) hours as needed for Pain (scale 4-6). [facility] proMETHazin e 25 mg tablet 07-23 00:00: 00 Yes 25mg Take 1 tablet by mouth every 6 (six) hours as needed for Nausea and Vomiting (N/V). [facility] benzonatate (TESSALON PERLES) 100 mg capsule 03-19 00:00: 00 Yes 100mg Take 1 capsule by mouth 3 (three) times daily as needed for Cough. [facility] albuterol (PROVENTIL) 2.5 mg /3 mL (0.083 %) nebulizer solution 03-19 00:00: 00 02-18 00:00 :00 No 2.5mg Inhale 3 mL every 4 (four) hours as needed for Wheezing or Shortness of Breath. May also nebulize one extra every 6 hours. [facility] predniSONE (DELTASONE) 20 mg tablet 03-19 00:00: 00 02-18 00:00 :00 No 1 tab PO BID x 4 days [facility] Vital Signs Vital Name Observation Time Observation Value Comments S hi Systolic blood pressure 2022-07-24 18:21:00 162 mm[Hg] [facility] Diastolic blood pressure 2022-07-24 18:21:00 98 mm[Hg] [facility] Heart rate 2022-07-24 18:21:00 75 /min [facility] Respiratory rate 2022-07-24 18:21:00 20 /min [facility] Oxygen saturation in Arterial blood by Pulse oximetry 2022-07-24 18:21:00 97 /min [facility] Body temperature 2022-07-24 15:47:00 36.72 Lauren [facility] Body height 2022-07-24 15:47:00 165.1 cm [facility] Body weight 2022-07-24 15:47:00 195.047 kg [facility] BMI 2022-07-24 15:47:00 71.56 kg/m2 [facility] Systolic blood pressure 2020-02-19 18:46:00 170 mm[Hg] [facility] Diastolic blood pressure 2020-02-19 18:46:00 83 mm[Hg] [facility] Heart rate 2020-02-19 18:46:00 58 /min [facility] Respiratory rate 2020-02-19 18:46:00 17 /min [facility] Oxygen saturation in Arterial blood by Pulse oximetry 2020-02-19 18:46:00 95 /min [facility] Body temperature 2020-02-19 17:00:00 36.22 [facility] Body height 2020-02-18 15:14:00 165.1 cm [facility] Body weight 2020-02-18 10:41:00 215.459 kg [facility] BMI 2020-02-18 10:41:00 79.04 kg/m2 [facility] Systolic blood pressure 2020-02-19 18:46:00 170 mm[Hg] [facility] Diastolic blood pressure 2020-02-19 18:46:00 83 mm[Hg] [facility] Heart rate 2020-02-19 18:46:00 58 /min [facility] Respiratory rate 2020-02-19 18:46:00 17 /min [facility] Oxygen saturation in Arterial blood by Pulse oximetry 2020-02-19 18:46:00 95 /min [facility] Body temperature 2020-02-19 17:00:00 36.22 Lauren [facility] Body height 2020-02-18 15:14:00 165.1 cm [facility] Body weight 2020-02-18 10:41:00 215.459 kg [facility] BMI 2020-02-18 10:41:00 79.04 kg/m2 [facility] Procedures Procedure Date / Time Performed Performing Clinician Source AUTHORIZATION FOR RELEASE OF PHI 2023-01-19 05:01:00 Doctor Unassigned, Patten [facility] RAPID STREP SCREEN FOR GROUP A 2022-07-24 16:47:00 Lakshmi Vicente [facility] CONSENT/REFUSAL FOR DIAGNOSIS AND TREATMENT 2022-07-24 15:42:25 Doctor Unassigned, Patten [facility] POCT GLUCOSE (AUTOMATED) 2020-02-19 17:15:[address] [facility] POCT GLUCOSE (AUTOMATED) 2020-02-19 13:11:[address] [facility] PHOSPHORUS 2020-02-19 10:44:00 [facility] MAGNESIUM 2020-02-19 10:44:00 Percy [facility] COMP. METABOLIC PANEL (68140) 2020-02-19 10:44:00 Percy Uriostegui [facility] CBC WITH DIFF 2020-02-19 10:44:00 Percy Uriostegui [facility] N-TERMINAL PRO-BNP 2020-02-19 10:44:00 Percy Uriostegui [facility] POCT GLUCOSE (AUTOMATED) 2020-02-19 00:42:[address] [facility] POCT GLUCOSE (AUTOMATED) 2020-02-18 23:04:[address] [facility] CT CHEST PULMONARY ANGIOGRAM 2020-02-18 22:10:[address] [facility] POCT GLUCOSE (AUTOMATED) 2020-02-18 17:53:[address] [facility] VITAMIN B12, LEVEL 2020-02-18 14:10:00 Percy Uriostegui [facility] C-REACTIVE PROTEIN 2020-02-18 14:10:00 Percy Uriostegui [facility] IRON PANEL 2020-02-18 14:10:00 [facility] PROTHROMBIN TIME / INR 2020-02-18 14:10:00 Bhupinder Uriostegui [facility] D-DIMER 2020-02-18 14:10:00 [facility]cy [facility] N-TERMINAL PRO-BNP 2020-02-18 14:10:00 [facility] VITAMIN D, 25-OH 2020-02-18 14:10:00 [facility] PROCALCITONIN 2020-02-18 14:10:00 [facility] PHOS[facility]US 2020-02-18 14:08:00 [facility] MAGNESIUM 2020-02-18 14:08:00 [facility] FERRITIN SERUM 2020-02-18 14:08:00 [facility] THYROID STIMULATING HORMONE 2020-02-18 14:08:00 [facility] LIPID PANEL (28935)(TOTAL CHOLESTEROL, TRIGLYCERIDES, HDL) 2020-02-18 14:08:00 [facility] ACUTE CARE VENOUS BLOOD GAS 2020-02-18 14:08:00 [facility] SEDIMENTATION RATE 2020-02-18 14:08:00 [facility] GLYCOSYLATED HEMOGLOBIN (A1C) 2020-02-18 14:08:00 [facility] XR CHEST 1 VW 2020-02-18 11:19:28 Juan Mccarthy [facility] LIPASE 2020-02-18 11:08:[address] [facility] TROPONIN I 2020-02-18 11:08:[address] [facility] COMP. METABOLIC PANEL (27832) 2020-02-18 11:08:00 Juan Mccarthy [facility] CBC WITH DIFF 2020-02-18 11:08:00 Juan Mccarthy [facility] N-TERMINAL PRO-BNP 2020-02-18 11:08:00 Juan Mccarthy [facility] COVID-19 (ID NOW RAPID TESTING) 2020-02-18 11:01:00 Juan Mccarthy [facility] POCT TEST 2020-02-18 10:58:00 Juan Mccarthy [facility] EKG-12 LEAD 2020-02-18 10:47:05 Juan Mccarthy [facility] EKG-12 LEAD 2020-02-18 10:39:34 Juan Mccarthy [facility] ASSIGNMENT OF BENEFITS 2020-02-18 10:24:53 Docto r Unassigned, Patten [facility] NOTICE OF PRIVACY PRACTICES 2020-02-18 10:24:19 Doctor Unassigned, Patten [facility] CONSENT/REFUSAL FOR DIAGNOSIS AND TREATMENT 2020-02-18 10:24:01 Doctor Unassigned, Patten [facility] Encounters Start Date/Time End Date/Time Encounter Type Admission Type Attending [facility] Facility Care Department Encounter ID Source 2023-01-19 00:00:00 2023-01-19 00:00:00 Orders Only Doctor Unassigned, Patten [facility] 1.2.840.114 350.1.13.10 [id number] [id number] [facility] 2022-07-24 09:48:00 2022-07-24 12:45:00 Emergency X LAKSHMI VICENTE [facility] ERT [id number] [facility] 2022-07-24 09:48:00 2022-07-24 12:45:00 Emergency Lakshmi Vicente [facility] [id number] 350.1.13.10 4.2.7.2.686 [id number] [facility] 2022-07-24 00:00:00 2022-07-24 00:00:00 Orders Only Doctor Unassigned, Patten [facility] 1.2.840.114 350.1.13.10 4.2.7.2.686 [id number] [facility] 2020-03-22 00:00:00 2020-03-22 00:00:00 Patient Outreach Coleen Henry [id number] 350.1.13.10 4.2.7.2.686 [id number] 2020-03-22 00:00:00 2020-03-22 00:00:00 Patient Outreach Coleen Henry [id number] 350.1.13.10 4.2.7.2.686 [id number] [facility] 2020-03-08 00:00:00 2020-03-08 00:00:00 Patient Outreach Meg Hilario [id number] 350.1.13.10 4.2.7.2.686 [id number] 2020-03-08 00:00:00 2020-03-08 00:00:00 Patient Outreach Meg Hilario 1.2.840.114 350.1.13.10 4.2.7.2.686 [id number] [facility] 2020-02-23 00:00:00 2020-02-23 00:00:00 Patient Outreach Coleen Henry 1.2.840.114 350.1.13.10 4.2.7.2.686 [id number] 2020-02-23 00:00:00 2020-02-23 00:00:00 Patient Outreach Coleen Henry 1.2.840.114 350.1.13.10 4.2.7.2.686 [id number] [facility] 2020-02-22 00:00:00 2020-02-22 00:00:00 Transition of Care Annia Webster Dele[place] 1.2.840.114 350.1.13.10 4.2.7.2.686 [id number] 2020-02-22 00:00:00 2020-02-22 00:00:00 Transition of Care Annia Webster 1.2.840.114 350.1.13.10 4.2.7.2.686 [id number] 2020-02-22 00:00:00 2020-02-22 00:00:00 Transition of Care Annia Webster 1.2.840.114 350.1.13.10 4.2.7.2.686 [id number] [facility] 2020-02-22 00:00:00 2020-02-22 00:00:00 Transition of Care Annia Webster 1.2.840.114 350.1.13.10 4.2.7.2.686 [id number] [facility] 2020-02-18 05:27:00 2020-02-19 16:00:00 [facility] 1.2.840.114 350.1.13.10 4.2.7.2.686 [id number] [facility] 2020-02-18 05:27:00 2020-02-19 16:00:00 [facility] 1.2.840.114 350.1.13.10 4.2.7.2.686 [id number] 2020-02-18 05:27:00 2020-02-18 05:27:00 Emergency X DEYANIRA MCCARTHYTEE [facility] ERT [id number] [facility] Results Test Description Test Time Test Comments Results Result Co mments Source [facility]2020-02-19 15:40:00* Test Item Value Reference Range Interpretation Comme nts POCT GLU (test code = 4949273342) 161 mg/dL 70-110 H Lab Interpretation (test cod e = 61198-2) Abnormal [facility] [id number] 14:16:00* Test Item Value Reference Range Interpretation Comme nts WBC (test code = 6690-2) See_Comment [Automated messa ge] The system which generated this result transmitted reference range: 4.30 - 11.10 10*3/?L. The reference range was not used to interpret this result as normal/abnormal. RBC (test code = 789-8) See_Comment [Automated messa ge] The system which generated this result transmitted reference range: 3.93 - 5.25 10*6/?L. The reference range was not used to interpret this result as normal/abnormal. HGB (test code = 718-7) 9.9 g/dL 11.6-15 L HCT (test code = 4544-3) 32.5 % 35.7-45.2 L MCV (test code = 787-2) 81.9 fL 80.6-95.5 MCH (test code = 785-6) 24.9 pg 25.9-32.8 L MCHC (test code = 786-4) 30.5 g/dL 31.6-35.1 L RDW-SD (test code = 17338-4) 40.8 fL 39-49.9 RDW-CV (test code = 788-0) 13.6 % 12-15.5 PLT (test code = 777-3) See_Comment H [Automated messa ge] The system which generated this result transmitted reference range: 166 - 358 10*3/?L. The reference range was not used to interpret this result as normal/abnormal. MPV (test code = 44020-5) 10.1 fL 9.5-12.9 NRBC/100 WBC (test code = 3110870479) See_Comment [Automated [employer] ssage] The system which generated this result transmitted reference range: 0.0 - 10.0 /100 WBCs. The reference range was not used to interpret this result as normal/abnormal. NRBC x10^3 (test code = 9935628325) See_Comment [Automated messa ge] The system which generated this result transmitted reference range: 10*3/?L. The reference range was not used to interpret this result as normal/abnormal. GRAN MAT (NEUT) % (test code = 770-8) 70.8 % IMM GRAN % (test code = 8086525675) 2.10 % LYMPH % (test code = 736-9) 19.3 % MONO % (test code = 5905-5) 7.3 % EOS % (test code = 713-8) 0.2 % BASO % (test code = 706-2) 0.3 % GRAN MAT x10^3(ANC) (test code = 3499664741) 6.84 10*3/uL 1.88-7.09 IMM GRAN x10^3 (test code = 2404479506) 0.20 10*3/uL 0-0.06 H LYMPH x10^3 (test code = 731-0) 1.86 10*3/uL 1.32-3.29 MONO x10^3 (test code = 742-7) 0.71 10*3/uL 0.33-0.92 EOS x10^3 (test code = 711-2) <0.03 0.03-0.39 L BASO x10^3 (test code = 704-7) 0.03 10*3/uL 0.01-0.07 GIANT PLATELETS (test code = 5908-9) Present See_Comment A [Automated messa ge] The system which generated this result transmitted reference range: (none). The reference range was not used to interpret this result as normal/abnormal. Lab Interpretation (test code = 88305-2) [facility] [id number] 14:15:00* Test Item Value Reference Range Interpretation Comme nts CRP (test code = 5355881729) 5.4 mg/dL <0.8 H Lab Interpretation (test cod e = 02698-5) [facility]normal [facility]AL [id number] 11:53:00* Test Item Value Reference Range Interpretation Comme nts NT-proBNP (test code = 8855193742) 221 pg/mL See_Comment H [Automated message] The system which generated this result transmitted reference range: <=125. The reference range was not used to interpret this result as normal/abnormal. DEANNA (test code = DEANNA) Biotin has been reported to cause a negative bias, interpret results relative to patient's use of biotin. Lab Interpretation (test code = 76317-9) [facility]15059[facility]2020-02-19 11:46:00* Test Item Value Reference Range Interpretation Comme nts NA (test code = 0778975302) 139 mmol/L 135-145 K (test code = 5011883530) 4.0 mmol/L 3.5-5 CL (test code = 3454486060) 106 mmol/L 98-108 CO2 TOTAL (test code = 8842212830) 26 mmol/L 23-31 AGAP (test code = 0714032207) 2-16 BUN (test code = 1014274634) 10 mg/dL 7-23 GLUCOSE (test code = 4433629905) 174 mg/dL 70-110 H CREATININE (test code = 3582116372) 0.56 mg/dL 0.5-1.04 TOTAL BILI (test code = 9680186236) 0.3 mg/dL 0.1-1.1 CALCIUM (test code = 9259906008) 9.0 mg/dL 8.6-10.6 T PROTEIN (test code = 6342415919) 7.9 g/dL 6.3-8.2 ALBUMIN (test code = 6680325957) 3.8 g/dL 3.5-5 ALK PHOS (test code = 8311451952) 88 U/L 34-122 ALTv (test code = 1742-6) 33 U/L 5-35 AST(SGOT) (test code = 4560726648) 34 U/L 13-40 eGFR Calculation (Non-) (test code = 8586132788) mL/min/1.73m2 eGFR Calculation () (test code = 8994949919) mL/min/1.73m2 DEANNA (test code = DEANNA) Association of [...] or abnormalities in imaging tests). Lab Interpretation (test code = 15333-8) [facility]UM2020-07-31 11:46:00* Test Item Value Reference Range Interpretation Comme [facility] MAGNESIUM (test code = 8218886591) 2.6 mg/dL 1.7-2.4 H Lab Interpretation (test cod e = 60598-6) [facility]normal [facility]PHOSPHORUS2020-07-31 11:45:00* Test Item Value Reference Range Interpretation Comme [facility] PHOSPHORUS (test code = 1035210544) 3.9 mg/dL 2.5-5 Lab Interpretation (test cod e = 94454-9) Normal [facility] HospitalVITAMIN D, [id number] 01:00:00* Test Item Value Reference Range Interpretation Comme [facility] VIT D 25OH (test code = 23857-0) <13 25-80 L DEANNA (test code = DEANNA) Deficiency: <20 ng/mLInsufficiency: 20-24 ng/mLOptimal: 25-80 ng/mL Lab Interpretation (test code = 34762-3) Abnormal [facility] GLUCOSE (AUTOMATED)2020-02-19 00:53:00* Test Item Value Reference Range Interpretation Comme [facility] POCT GLU (test code = 3859923097) 250 mg/dL 70-110 H Lab Interpretation (test cod e = 66091-2) Abnormal [facility] GLUCOSE (AUTOMATED)2020-02-19 00:35:00* Test Item Value Reference Range Interpretation Comme nts POCT GLU (test code = 2249016264) 226 mg/dL 70-110 H Lab Interpretation (test cod e = 09360-9) [facility]normal [facility] HospitalCT CHEST PULMONARY [id number] 23:19:04Limited exam due to patient body habitus, [...] is mildly dilated measuring up to 3.5 cm. CHEST:Lower neck/thyroid: The visualized lower neck is unremarkable. Lungs/Pleura: Bilateral patchy and confluent consolidative and groundglassopacities with interlobular septal thickening. No pleural effusion orpneumothorax. Central airway: The central airways are patent. Reactive bronchial wallthickening. Small airway mucus plugging suspected but difficult to visualize due to motion artifact. Thoracic aorta and great vessels: Normal in diameter. Heart and pericardium: No detectable coronary arterial calcification.Unremarkable cardiac morphology and pericardium. Mediastinum/Lymph nodes: Scattered subcentimeter mediastinal and bilateralhilar lymph nodes, l ikely reactive. Largest right hilar lymph node measures1.7 cm short axis. Largest left hilar lymph node measures 1.6 cm in shortaxis. Additional mildly prominent lymph nodes scattered in paratrachealandprevascular distribution. Few additional bilateral nodules scattered in bilateral breast axillarytail and axillary regions measuring up to 1.4 cm (for example 4:45). Theseprobably represent lymph nodes. Thoracic spine and chest wall: No suspicious or aggressive osseous lesion. Other Lines/Tubes/Devices/Hardware: None Visualized upper abdomen: Splenomegaly measuring nearly 15 cm incraniocaudal dimension. Severe hepatic steatosis. [facility], Radiant Results Inft User - 02/18/2020 6:20 PM CDTPROCEDURE: CT ANGIO CHEST WITH CONTRAST - PE PROTOCOLCLINICAL INDICATION: PEsuspected, intermediate prob, neg D-dimer COMPARISON: Same day chest radiatingTECHNIQUE: Helical CTwas performed and reconstructed at 1.25 mm slicethickness from lung base to apices after the administration of 140 mLOmnipaque-350 intravenous contrast, without complication. Display field ofview: 50cm.FINDINGS:PULMONARY ARTERIES:Contrast bolus timing is suboptimal for evaluation of pulmonary arterialvasculature. Additionally, respiratory motion further limits evaluation. Nodiscernible filling defect at the proximal segmental level. Main pulmonarytrunk is mildly dilated measuring up to 3.5 cm.CHEST:Lower neck/thyroid: The visualized lower neck is unremarkable.Lungs/Pleura: Bilateral patchy and confluent consolidative and groundglassopacities with interlobular septal thickening. No pleural e ffusion orpneumothorax.Central airway: The central airways are patent. Reactive bronchial wallthickening. Small airway mucus plugging suspected but difficult tovisualize due to motion artifact. Thoracic aorta and great vessels: Normal in diameter.Heart and pericardium: No detectable coronary arterial calcification.Unremarkable cardiac morphology and pericardium. Mediastinum/Lymph nodes: Scatteredsubcentimeter mediastinal and bilateralhilar lymph nodes, likely reactive. Largest right hilar lymph node measures1.7 cm short axis. Largest left hilar lymph node measures 1.6 cm in shortaxis. Additional mildly prominent lymph nodes scattered in paratracheal andprevascular distribution.Few additional bilateral nodules scattered in bilateral breast axillarytail and axillary regions measuring up to1.4 cm (for example 4:45). Theseprobably represent lymph nodes.Thoracic spine and chest wall: No suspicious or aggressive osseous lesion.Other Lines/Tubes/Devices/Hardware: NoneVisualized upper abdomen: Splenomegaly measuring nearly 15 cm incraniocaudal dimension. Severe hepatic steatosis. IMPRESSIONLimited exam due to patient body habitus, respiratory motion and contrastbolus timing.No acute pulmonary embolism to the proximal segmental level. Dilated main pulmonary trunk may be seen with elevated pulmonary arterypressures.Bilateral confluent consolidative and groundglass opacities withinterlobular septal thickening, nonspecific but likely multifocal/viralinfection such as Covid-19 pneumonia. Clinical correlation is recommended.Severe hepatic steatosis and spl enomegaly. Preliminary Report Dictated by Resident: Sohail Post MD., have reviewed this study and agree with theabove report.[facility] HospitalPROCALCITONIN2020-07-30 22:20:00* Test Item Value Reference Range Interpretation Comme nts Procalcitonin (test code = 4622652958) 0.03 ng/mL <0.07 DEANNA (test code = DEANNA) INTERPRETATION OF [...] lung abscess/empyema. For further information please refer to:[email or web address] Lab Interpretation (test code = 37220-4) Normal [facility] HospitalVITAMIN B12, [id number] 22:11:00* Test Item Value Reference Range Interpretation Comme nts VIT B12 (test code = 1659386365) >1000 240-930 H DEANNA (test code = DEANNA) Biotin has been reported to cause a positive bias, interpret results relative to patient's use of biotin. Lab Interpretation (test code = 58783-4) Abnormal [facility] HospitalPOCT GLUCOSE (AUTOMATED)2020-02-18 17:59:00* Test Item Value Reference Range Interpretation Comme nts POCT GLU (test code = 1436379407) 209 mg/dL 70-110 H Lab Interpretation (test cod e = 61966-2) Abnormal [facility] HospitalSEDIMENTATION [id number] 16:08:00* Test Item Value Reference Range Interpretation Comme nts ESR (test code = 1024488808) See_Comment [Automated [employer]] The system which generated this result transmitted reference range: 0 - 20 mm/HR. The reference range was not used to interpret this result as normal/abnormal. Lab Interpretation (test code = 01229-6) Normal [facility] HospitalFERRITIN [id number] 15:22:00* Test Item Value Reference Range Interpretation Comme nts FERRITIN (test code = 3807225616) 51.5 ng/mL 6-137 DEANNA (test code = DEANNA) Biotin has been reported to cause a negative bias, interpret results relative to patient's use of biotin. Lab Interpretation (test code = 26190-1) Normal [facility] HospitalIRON [id number] 15:22:00* Test Item Value Reference Range Interpretation Comme nts IRON (test code = 4935870471) 30 ug/dL 50-160 L TIBC (test code = 2767706167) 357 ug/dL 250-410 % FE SAT (test code = 3718044262) 8 % 20-50 L Lab Interpretation (test cod e = 97279-9) Abnormal [facility] HospitalN-TERMINAL [id number] 15:21:00* Test Item Value Reference Range Interpretation Comme nts NT-proBNP (test code = 4526665537) 44 pg/mL See_Comment [Automated message] The system which generated this result transmitted reference range: <=125. The reference range was not used to interpret this result as normal/abnormal. DEANNA (test code = DEANNA) Biotin has been reported to cause a negative bias, interpret results relative to patient's use of biotin. Lab Interpretation (test code = 73692-0) Normal [facility] HospitalTHYROID STIMULATING [id number] 15:18:00 * Test Item Value Reference Range Interpretation Comme nts TSH (test code = 9209919403) See_Comment [Automated [employer]] The system which generated this result transmitted reference range: 0.45 - 4.70 mIU/L. The reference range was not used to interpret this result as normal/abnormal. Lab Interpretation (test code = 32061-7) Normal [facility] HospitalD-[id number] 15:03:00* Test Item Value Reference Range Interpretation Comments D-DIMER (test code = 5504449051) See_Comment H [Automated message] The system which generated this result transmitted reference range: <0.41 ?g/mL (FEU). The reference range was not used to interpret this result as normal/abnormal. DEANNA (test code = DEANNA) This test may be used in conjunction with a clinical pretest [...] context, in forming a diagnosis. Lab Interpretation (test code = 97241-3) Abnormal [facility] HospitalPROTHROMBIN TIME / [id number] 14:59:00* Test Item Value Reference Range Interpretation Comme nts PROTIME PATIENT (test code = 5964-2) See_Comment [Automated [employer]] The system which generated this result transmitted reference range: 12.0 - 14.7 Seconds. The reference range was not used to interpret this result as normal/abnormal. INR (test code = 6301-6) Normal INR <1.1; Warfarin Therapeutic range 2.0 to 3.0 or 2.5 to 3.5, depending upon the indications. Lab Interpretation (test code = 04848-3) Normal [facility] HospitalGlycosylated Hemoglobin (A1C)2020-02-18 14:53:00* Test Item Value Reference Range Interpretation Comme nts HGB A1C (test code = 4548-4) 10.0 % 4-6 H DEANNA (test code = DEANNA) %A1C (NGSP) Interpretation (ADA)4.8-5.6 ? ? Normal or (Non-Diabetic Range)5.7-6.4 ? ? Increased Risk (Pre-Diabetic)>6.5 ?Diabetes Indicated Lab Interpretation (test code = 97826-5) Abnormal [facility] HospitalLipid Panel (Total Cholesterol, Triglycerides, HDL) - [id number] 14:46:00* Test Item Value Reference Range Interpretation Comme nts CHOL (test code = 8484758964) 103 mg/dL 120-200 L HDL (test code = 9931558851) 12 mg/dL >50 L HDLC RATIO (test code = 5599714936) See_Comment H [Automated [employer]] The system which generated this result transmitted reference range: <=4.5. The reference range was not used to interpret this result as normal/abnormal. TRIG (test code = 7447413132) 214 mg/dL 30-170 H LDL CHOL (test code = 31713-7) 48 mg/dL See_Comment [Automated [employer]] The system which generated this result transmitted reference range: <=160. The reference range was not used to interpret this result as normal/abnormal. VLDL (test code = 6222192499) 43 mg/dL 5-60 Lab Interpretation (test code = 61342-3) Abnormal [facility] HospitalMAGNESIUM2020-07-30 14:46:00* Test Item Value Reference Range Interpretation Comme nts MAGNESIUM (test code = 7791959980) 2.4 mg/dL 1.7-2.4 Lab Interpretation (test cod e = 07321-2) Normal [facility] HospitalPHOSPHORUS2020-07-30 14:46:00* Test Item Value Reference Range Interpretation Comme nts PHOSPHORUS (test code = 3148176012) 3.7 mg/dL 2.5-5 Lab Interpretation (test cod e = 14050-9) Normal [facility] HospitalACUTE CARE VENOUS BLOOD [id number] 14:29:00 * Test Item Value Reference Range Interpretation Comme nts PH (test code = 5078493564) 7.32-7.42 PCO2 ANURAG (test code = 0808276310) See_Comment [Automated [employer]] The system which generated this result transmitted reference range: 41 - 51 mmHg. The reference range was not used to interpret this result as normal/abnormal. PO2 ANURAG (test code = 1002403434) See_Comment [Automated messa ge] The system which generated this result transmitted reference range: 25 - 40 mmHg. The reference range was not used to interpret this result as normal/abnormal. HCO3 ANURAG (test code = 2633093260) See_Comment [Automated messa ge] The system which generated this result transmitted reference range: 24 - 28 mEq/L. The reference range was not used to interpret this result as normal/abnormal. AC VBE(BEAKER) (test code = 1272271318) mEq/L [facility] HospitalXR CHEST 1 [id number] 12:21:34EXAM: XR CHEST 1 VW CLINICAL INDICATION: chest pain COMPARISON: 03/19/2016 TECHNIQUE: Frontal and lateral views of the chest were obtained. FINDINGS: Bilateral patchy airspace opacities are present concerning for an atypicalinfectious process including COVID 19 pneumonia. No pleural effusion orpneumothorax. The cardiac silhouette is at the upper limit of normal in size. No acute osseous abnormality . Preliminary Report Dictated by Resident: Bony Garrido MD., have reviewedthis study and agree with theabove report.[facility], Radiant Results Inft User - 02/18/2020 7:22 AM CDTEXAM: XR CHEST 1 VWCLINICAL INDICATION: chest pain COMPARISON: 03/19/2016TECHNIQUE: Frontal and lateral views of the chest were obtained.FINDINGS:Bilateral patchy airspace opacities are present concerning for an atypicalinfectious process including COVID 19 pneumonia. No pleural effusion orpneumothorax.The cardiac silhouette is at the upper limit of normal in size.No acute osseous abnormality. Preliminary Report Dictated by Resident: Bony Pichardo MD., have reviewed this study and agree with theabove report.[facility] HospitalCBC WITH [id number] 11:50:00* Test Item Value Reference Range Interpretation Comme nts WBC (test code = 6690-2) See_Comment [Automated [employer]] The system which generated this result transmitted reference range: 4.30 - 11.10 10*3/?L. The reference range was not used to interpret this result as normal/abnormal. RBC (test code = 789-8) See_Comment L [Automated [employer]] The system which generated this result transmitted reference range: 3.93 - 5.25 10*6/?L. The reference range was not used to interpret this result as normal/abnormal. HGB (test code = 718-7) 9.5 g/dL 11.6-15 L HCT (test code = 4544-3) 32.0 % 35.7-45.2 L MCV (test code = 787-2) 82.7 fL 80.6-95.5 MCH (test code = 785-6) 24.5 pg 25.9-32.8 L MCHC (test code = 786-4) 29.7 g/dL 31.6-35.1 L RDW-SD (test code = 36474-7) 41.4 fL 39-49.9 RDW-CV (test code = 788-0) 13.9 % 12-15.5 PLT (test code = 777-3) See_Comment L [Automated [employer]] The system which generated this result transmitted reference range: 166 - 358 10*3/?L. The reference range was not used to interpret this result as normal/abnormal. MPV (test code = 23485-0) 11.7 fL 9.5-12.9 IPF % (test code = 1921636765) 11.2 % 1.3-7.7 H Platelet count measured by fluorescence method. NRBC/100 WBC (test code = 5289693412) See_Comment [Automated [employer]] The system which generated this result transmitted reference range: 0.0 - 10.0 /100 WBCs. The reference range was not used to interpret this result as normal/abnormal. NRBC x10^3 (test code = 2705461726) See_Comment [Automated [employer]] The system which generated this result transmitted reference range: 10*3/?L. The reference range was not used to interpret this result as normal/abnormal. GRAN MAT (NEUT) % (test code = 770-8) 63.6 % IMM GRAN % (test code = 1482468730) 1.50 % LYMPH % (test code = 736-9) 28.2 % MONO % (test code = 5905-5) 5.4 % EOS % (test code = 713-8) 1.0 % BASO % (test code = 706-2) 0.3 % GRAN MAT x10^3(ANC) (test code = 3215781636) 3.85 10*3/uL 1.88-7.09 IMM GRAN x10^3 (test code = 9720783598) 0.09 10*3/uL 0-0.06 H LYMPH x10^3 (test code = 731-0) 1.71 10*3/uL 1.32-3.29 MONO x10^3 (test code = 742-7) 0.33 10*3/uL 0.33-0.92 EOS x10^3 (test code = 711-2) 0.06 10*3/uL 0.03-0.39 BASO x10^3 (test code = 704-7) <0.03 0.01-0.07 PLT ESTIMATE (test code = 9317-9) Decreased Normal A Lab Interpretation (test code = 74501-6) Abnormal [facility] [id number] 11:40:00* Test Item Value Reference Range Interpretation Comme nts TROPONIN I (test code = 0863011856) <0.012 See_Comment [Automated message] The system which generated this result transmitted reference range: <=0.034 ng/mL. The reference range was not used to interpret this result as normal/abnormal. DEANNA (test code = DEANNA) Equal or Less than 0.034 ng/ml---Normal ?Note: Cardiac troponin begins to [...] patient's use of biotin. ? Lab Interpretation (test code = 51165-8) Normal [facility] HospitalN-TERMINAL [id number] 11:37:00* Test Item Value Reference Range Interpretation Comme nts NT-proBNP (test code = 2142036067) 40 pg/mL See_Comment [Automated message] The system which generated this result transmitted reference range: <=125. The reference range was not used to interpret this result as normal/abnormal. DEANNA (test code = DEANNA) Biotin has been reported to cause a negative bias, interpret results relative to patient's use of biotin. Lab Interpretation (test code = 06367-2) Normal [facility] HospitalCOMP. METABOLIC PANEL (30311)2020-02-18 11:29:00* Test Item Value Reference Range Interpretation Comme nts NA (test code = 5252441601) 136 mmol/L 135-145 K (test code = 1159362099) 4.3 mmol/L 3.5-5 CL (test code = 5378779992) 105 mmol/L 98-108 CO2 TOTAL (test code = 5285683769) 24 mmol/L 23-31 AGAP (test code = 9900462990) 2-16 BUN (test code = 2450461759) 8 mg/dL 7-23 GLUCOSE (test code = 2252806797) 150 mg/dL 70-110 H CREATININE (test code = 3831282747) 0.52 mg/dL 0.5-1.04 TOTAL BILI (test code = 0389994011) 0.6 mg/dL 0.1-1.1 CALCIUM (test code = 2563028911) 8.6 mg/dL 8.6-10.6 T PROTEIN (test code = 7897576969) 8.2 g/dL 6.3-8.2 ALBUMIN (test code = 9264123559) 3.8 g/dL 3.5-5 ALK PHOS (test code = 9921695916) 85 U/L 34-122 ALTv (test code = 1742-6) 42 U/L 5-35 H AST(SGOT) (test code = 7467442789) 65 U/L 13-40 H eGFR Calculation (Non-) (test code = 9865848115) mL/min/1.73m2 eGFR Calculation () (test code = 7449434611) mL/min/1.73m2 DEANNA (test code = DEANNA) Association of [...] or abnormalities in imaging tests). Lab Interpretation (test code = 05666-6) Abnormal [facility] HospitalLIPASE2020-07-30 11:28:00* Test Item Value Reference Range Interpretation Comme nts LIPASE (test code = 8031365687) 107 U/L 0-220 Lab Interpretation (test cod e = 77961-0) [facility] RAPID TESTING)2020-02-18 11:21:00* Test Item Value Reference Range Interpretation Comme nts SARS-CoV-2 Rapid ID NOW (test code = 75121-3) Positive Not Detected A DEANNA (test code = DEANNA) ID NOW COVID-19 As say is an isothermal nucleic acid amplification test intended for the qualitative detection of nucleic acid from SARS-CoV-2 viral RNA in nasopharyngeal (TALENT ACQUISITION COORDINATOR) specimens. It is used under Emergency Use [...] patient testing if clinically indicated. Lab Interpretation (test code = 65829-1) Abnormal [facility] HospitalPOCT [id number] 10:58:00* Test Item Value Reference Range Interpretation Comme nts POCT PREG (test code = 1605) Negative On board controls acceptable with C Line (test code = 3574) Present POCT PREG LOT # (test code = 3575) [id number] POCT PREG TEST DATE ( test code = 3576) 04/20/2021 Lab Interpretation (test cod e = 66747-4) [facility]
[2024-05-27 21:42] LABS: Specific Gravity 1.023 (1.005-1.030)
[2024-05-27 21:44] LABS: Specific Gravity 1.023 (1.005-1.030); Sqamous Epithelial <5 /HPF (None Seen); Urine Bacteria <20 /HPF (<20); Urine Bilirubin NEGATIVE (Negative); Urine Blood 3+ (OVER) (Negative); Urine Clarity Extremely Turbid (Clear); Urine Color Light-Orange (Yellow); Urine Crystals Unidentified Few /HPF (None Seen); Urine Culture Reflex Order REFLEXED; Urine Glucose NEGATIVE (Negative); Urine Ketones NEGATIVE (Negative); Urine Micro Reflex YN NO BILL MICROSCOPIC; Urine Mucus Slight /HPF (None Seen); Urine Nitrite NEGATIVE (Negative); Urine Protein 2+ (Negative); Urine RBC >50 /HPF (None Seen); Urine Urobilinogen Normal (Normal); Urine WBC >50 /HPF (<5); Urine WBC Clump Occasional /HPF (None Seen); Urine Yeast (Budding) Trace /HPF (None Seen)
--- NOTE | 2024-05-27 22:27 | EDPHYS ---
Physician Documentation [facility] Name: Edgard Bearden Age: 39 yrs Sex: Female : 1985 Arrival Date: 05/27/2024 Time: 20:42 Bed 17 Private MD: ED Physician Mike Mccurdy HPI: 05/27 20:50 This 39 yrs old Female presents to ER via Unassigned with complaints of Pain sp4 With Urination, Urinary Incontinence. 05/28 04:32 39-year-old female who is suffering from morbid obesity presents with acute pelvic sp4 discomfort , pain with urination and also burning with urination. . HIP HOP ARTIST: 05/27 22:33 LMP N/A - Irregular menses, Not me1 Historical: - Allergies: 20:56 Rifampin; cm10 20:56 Sulfa (Sulfonamide Antibiotics); cm10 - PMHx: 20:56 PCOS; cm10 - Immunization history:: Adult Immunizations up to date. - Infectious Disease History:: Denies. - Social history:: Smoking status: Patient denies any tobacco usage or history of. - Family history:: not pertinent. ROS: 05/28 04:32 Positive for pelvic pain, burning with urination, sp4 Constitutional: Negative for fever, chills, and weight loss, positive for pain with urination, positive for burning with urination All other systems are negative, Exam: 04:32 Constitutional: This is a well developed, well nourished patient who is awake, alert, sp4 and in no acute distress. Patient is morbidly overweight Head/Face: Normocephalic, atraumatic. Eyes: Pupils equal round and reactive to light, extra-ocular motions intact. Lids and lashes normal. Conjunctiva and sclera are not injected. Cornea within normal limits. Periorbital areas with no swelling, redness, or edema. ENT: Nares patent. No nasal discharge, no septal abnormalities noted. Tympanic membranes are normal and external auditory canals are clear. Oropharynx with no redness, swelling, or masses, exudates, or evidence of obstruction, uvula midline. Mucous membranes moist. Neck: Trachea midline, no thyromegaly or masses palpated, and no cervical lymphadenopathy. Supple, full range of motion without nuchal rigidity, or vertebral point tenderness. Chest/axilla: Normal chest wall appearance and motion. Nontender with no deformity. No lesions are appreciated. Cardiovascular: Regular rate and rhythm with a normal S1 and S2. No gallops, murmurs, or rubs. Normal PMI, no JVD. No pulse deficits. Respiratory: Lungs have equal breath sounds bilaterally, clear to auscultation and percussion. No rales, rhonchi or wheezes noted. No increased work of breathing, no retractions or nasal flaring. Abdomen/GI: Soft, with normal bowel sounds. No distension or tympany. No guarding or rebound. No evidence of tenderness throughout. Back: No spinal tenderness. No costovertebral tenderness. Female : Positive for signs of tinea cruris in intertriginous areas. External female exam accomplished with female nurse artificial breeding technician, there is also no sign of lesions consistent with herpes or other significant problem. Skin: Warm, dry with normal turgor. Normal color with no rashes, no lesions, and no evidence of cellulitis. MS/ Extremity: Pulses equal, no cyanosis. Neurovascular intact. Full, normal range of motion. Neuro: Awake and alert, GCS 15, oriented to person, place, time, and situation. Cranial nerves II-XII grossly intact. Motor strength 5/5 in all extremities. Sensory grossly intact. Vital Signs: 05/27 20:53 BP 156 / 99; Pulse 84; Resp 18; Temp 97.7(TE); Pulse Ox 99% on R/A; Weight 201.1 kg; cm10 Height 5 ft. 5 in. ; Pain 7/10; 21:30 BP 133 / 73; Pulse 80; Resp 16; Pulse Ox 99% ; me1 22:33 BP 125 / 63; Pulse 72; Resp 18; Temp 98.4; Pulse Ox 98% ; me1 20:53 Body Mass Index 73.78 (201.10 kg, 165.1 cm) cm10 20:53 Pain Scale: Adult cm10 Tyrell Coma Score: 05/28 04:32 Eye Response: spontaneous(4). Motor Response: obeys commands(6). Verbal Response: sp4 oriented(5). Total: 15. MDM: 05/27 20:50 Medical Screening Exam initiated sp4 05/28 04:32 Differential diagnosis: cervicitis, endometriosis, ovarian cyst. Data reviewed: vital sp4 signs, nurses notes, lab test result(s), urinalysis, UPT: negative. ED course: Patient UA suggests UTI. Will prescribe cephalexin with concurrent Diflucan.. 05/27 20:50 Order name: Urinalysis W/Microscopic; Complete Time: 22:16 sp4 05/27 20:50 Order name: Test, Urine; Complete Time: 22:16 sp4 05/27 21:32 Order name: Glucose, Ancillary Testing; Complete Time: 22:16 EDMS 05/27 21:48 Order name: Urine Culture EDMS 05/27 21:09 Order name: Accucheck Blood Glucose; Complete Time: 21:20 sp4 Administered Medications: 05/27 22:32 Drug: Ibuprofen PO 800 mg PO once Route: PO; me1 22:38 Follow up: Response: No adverse reaction me1 22:33 Drug: Cephalexin PO 500 mg PO once Route: PO; me1 22:38 Follow up: Response: No adverse reaction me1 22:33 Drug: Fluconazole PO 200 mg PO once Route: PO; me1 22:38 Follow up: Response: No adverse reaction me1 22:33 Drug: Phenazopyridine PO 200 mg PO once Route: PO; me1 22:38 Follow up: Response: No adverse reaction me1 Disposition: 05/28 04:37 Chart complete. sp4 Disposition Summary: 05/27/24 22:27 Discharge Ordered Notes: Location: Home sp4 Problem: new sp4 Symptoms: have improved sp4 Condition: Stable sp4 Diagnosis - UTI/ Urinary tract infection, site not specified sp4 - Candidiasis, unspecified sp4 - Intertriginous candidiasis , Acute UTI sp4 Followup: sp4 - With: Private Physician - When: 7 - 10 days - Reason: Recheck today's complaints Discharge Instructions: - Discharge Summary Sheet sp4 - Urinary Tract Infection, Adult, [id number] sp4 Forms: - Patient Portal Instructions sp4 Prescriptions: - phenazopyridine 200 mg Oral tablet - take 1 tablet ORAL route 3 times per day for 3 days; 9 tablet; Refills: 0, sp4 Product Selection Permitted - Cephalexin 500 mg Oral Capsule - take 1 capsule ORAL route every 12 hours for 10 days; 20 capsule; Refills: 0, sp4 Product Selection Permitted - Ibuprofen 800 mg Oral Tablet - take 1 tablet ORAL route every 8 hours As needed take with food; 30 tablet; sp4 Refills: 0, Product Selection Permitted - Fluconazole 200 mg Oral tablet - take 1 tablet ORAL route once daily for 10 days; 10 tablet; Refills: 0, Product sp4 Selection Permitted Signatures: Mike Gotti MD MD sp4 Nimo Go, RN RN cm10 Lizeth Thomas RN RN me1
--- NOTE | 2024-05-27 22:27 | ER ---
Nurse's Notes [facility] Name: Edgard Bearden Age: 39 yrs Sex: Female : 1985 Arrival Date: 05/27/2024 Time: 20:42 Bed 17 Private MD: Diagnosis: UTI/ Urinary tract infection, site not specified;Candidiasis, unspecified;Intertriginous candidiasis , Acute UTI Presentation: 05/27 20:53 Chief complaint: Patient states: burning with urination, urinary frequency and cm10 abdominal pain onset yesterday. Coronavirus screen: Client denies travel out of the [place] in the last 14 days. Ebola Screen: Patient denies travel to an Ebola-affected area in the 21 days before illness onset. No symptoms or risks identified at this time. Initial Sepsis Screen: Does the patient meet any 2 criteria? No. Patient's initial sepsis screen is negative. Does the patient have a suspected source of infection? No. Patient's initial sepsis screen is negative. Risk Assessment: Do you want to hurt yourself or someone else? Patient reports no desire to harm self or others. Onset of symptoms was May 26, 2024. 20:53 Method Of Arrival: Ambulatory cm10 20:53 Acuity: DALE 3 cm10 Triage Assessment: 20:56 General: Appears in no apparent distress. comfortable, Behavior is calm, cooperative. cm10 Pain: Complains of pain in abdomen. Neuro: No deficits noted. Level of Consciousness is awake, alert, obeys commands, Oriented to person, place, time, situation, Appropriate for age. Respiratory: No deficits noted. Airway is patent Respiratory effort is even, unlabored, Respiratory pattern is regular, symmetrical. : Reports burning with urination, urgency, urinary frequency. LOGGER: 22:33 LMP N/A - Irregular menses, Not me1 Historical: - Allergies: 20:56 Rifampin; cm10 20:56 Sulfa (Sulfonamide Antibiotics); cm10 - PMHx: 20:56 PCOS; cm10 - Immunization history:: Adult Immunizations up to date. - Infectious Disease History:: Denies. - Social history:: Smoking status: Patient denies any tobacco usage or history of. - Family history:: not pertinent. Screenin:00 [facility] ED Fall Risk Assessment (Adult) History of falling in the last 3 months, me1 including since admission No falls in past 3 months (0 pts) Confusion or Disorientation No (0 pts) Intoxicated or Sedated No (0 pts) Impaired Gait No (0 pts) Mobility Assist Device Used No (0 pt) Altered Elimination No (0 pt) Score/Fall Risk Level 0 - 2 = Low Risk Maintained a safe environment, Provided non-skid footwear, Hourly rounding (assess needs \T\ fall precautionary measures) done. Abuse screen: Denies threats or abuse. Nutritional screening: No deficits noted. Tuberculosis screening: No symptoms or risk factors identified. Assessment: 21:00 General: Appears uncomfortable, obese, well groomed, well developed, Behavior is calm, me1 cooperative, appropriate for age, Reports burning with urination, urinary frequency and abdominal pain onset yesterday. Pain: Complains of pain in abdomen Pain does not radiate. Pain currently is 4 out of 10 on a pain scale. Quality of pain is described as burning, Pain began gradually, 1 day ago. Is continuous. Neuro: Level of Consciousness is awake, alert, obeys commands, Oriented to person, place, time, situation, Appropriate for age. Cardiovascular: Patient's skin is warm and dry. Respiratory: Airway is patent Respiratory effort is even, unlabored, Respiratory pattern is regular, symmetrical. GI: Reports lower abdominal pain. : Reports burning with urination, urinary frequency, since yesterday. EENT: No signs and/or symptoms were reported regarding the EENT system. Derm: Skin is intact, is healthy with good turgor, Skin is pink, warm \T\ dry. Musculoskeletal: No signs and/or symptoms reported regarding the musculoskeletal system. Vital Signs: 20:53 BP 156 / 99; Pulse 84; Resp 18; Temp 97.7(TE); Pulse Ox 99% on R/A; Weight 201.1 kg; cm10 Height 5 ft. 5 in. ; Pain 7/10; 21:30 BP 133 / 73; Pulse 80; Resp 16; Pulse Ox 99% ; me1 22:33 BP 125 / 63; Pulse 72; Resp 18; Temp 98.4; Pulse Ox 98% ; me1 20:53 Body Mass Index 73.78 (201.10 kg, 165.1 cm) cm10 20:53 Pain Scale: Adult cm10 Tyrell Coma Score: 05/28 04:32 Eye Response: spontaneous(4). Motor Response: obeys commands(6). Verbal Response: sp4 oriented(5). Total: 15. ED Course: 05/27 20:46 Patient arrived in ED. [email or web address] 20:50 Mike Mccurdy MD is Attending Physician. sp4 20:56 Triage completed. cm10 20:57 Arm band placed on left wrist. Patient placed in waiting room. cm10 21:00 Patient has correct armband on for positive identification. Bed in low position. Call me1 light in reach. Side rails up X2. Provided Education on: POC. Verbalized understanding.. Client placed on continuous cardiac and pulse oximetry monitoring. NIBP monitoring applied. Pulse ox on. NIBP on. 21:00 No provider procedures requiring assistance completed. Patient did not have IV access me1 during this emergency room visit. 21:16 Lizeth Thomas, RN is Primary Nurse. me1 21:20 Test, Urine Sent. me1 21:20 Urinalysis W/Microscopic Sent. me1 21:20 Urine collected: clean catch specimen, cloudy, harjeet colored. me1 Administered Medications: 22:32 Drug: Ibuprofen PO 800 mg PO once Route: PO; me1 22:38 Follow up: Response: No adverse reaction me1 22:33 Drug: Cephalexin PO 500 mg PO once Route: PO; me1 22:38 Follow up: Response: No adverse reaction me1 22:33 Drug: Fluconazole PO 200 mg PO once Route: PO; me1 22:38 Follow up: Response: No adverse reaction me1 22:33 Drug: Phenazopyridine PO 200 mg PO once Route: PO; me1 22:38 Follow up: Response: No adverse reaction me1 Medication: 21:00 VIS not applicable for this client. me1 Outcome: 22:27 Discharge ordered by . sp4 22:41 Patient left the ED. me1 Signatures: Maricel Flores jMike Leslie MD MD sp4 Nimo Go RN RN cm10 Lizeth Thomas, JORGE RN me1 Corrections: (The following items were deleted from the chart) 21:55 20:53 Chief complaint: Patient states: burning with urination, urinary frequency and me1 abdominal pain onset yesterday. cm10
[2024-05-27] MEDS ORDERED: PHENAZOPYRIDINE 100MG TAB PO ONE (22:30)
[2024-05-27] MEDS ORDERED: FLUCONAZOLE 100 MG TAB ONE (22:30)
[2024-05-27] MEDS ORDERED: IBUPROFEN 400 MG TAB ONE (22:30)
[2024-05-27] MEDS ORDERED: CEPHALEXIN 250 MG CAP ONE (22:30)
[2024-05-27 23:01] VITALS: BP 125/63; TEMP 98.4; O2SAT 98
== END 2024-05-27 22:41 | disposition home or self-care (01) ==
LOC: ER 20:42
DX: N39.0 Urinary tract infection, site not specified (principal); B37.2 Candidiasis of skin and nail; B37.9 Candidiasis, unspecified
CPT/HCPCS: 81001; 81025; 82947; 87086; 87088